=== PATIENT | male | born 1965 | race African-American/Black ===

== ENCOUNTER → 2017-03-31 | Outpatient (CLI) | payer MEDICARE, MEDICAID | LOC: CARD 09:21 | PROVIDERS: ATTEND Physician Assistant | DX: I12.9 Hypertensive chronic kidney disease with stage 1 through stage 4 chronic kidney disease, or unspecified chronic kidney disease (principal); N18.9 Chronic kidney disease, unspecified; R06.00 Dyspnea, unspecified; R01.1 Cardiac murmur, unspecified; G47.33 Obstructive sleep apnea (adult) (pediatric) | CPT/HCPCS: 93306 ==

== ENCOUNTER → 2017-07-14 | Outpatient (CLI) | payer MEDICARE, MEDICAID ==
--- NOTE | 2017-07-14 12:48 | Diagnostic Imaging Report ---
PROCEDURE: CT chest without contrast. TECHNIQUE: Multiple contiguous axial images were obtained through the chest without the use of intravenous contrast. INDICATION: Pleural effusion. FINDINGS: The prior chest exam of 06/28/2017 noted cardiomegaly and a moderate right pleural effusion with a small left pleural effusion. On this exam, the right pleural effusion is again identified. The fluid measures approximately 10 cm in maximum depth. There is also considerable atelectasis/infiltrate involving the right lower lobe and the right middle lobe and much of the right lower lobe is collapsed about the right hilum. There is no clearance evidence for an endobronchial mass but there may be constriction of the bronchus to the right lower lobe by a neoplastic mass. Bronchoscopy would be recommended for further evaluation. The right upper lobe and left lung are generally clear. There are a few small patchy areas of increased density in the left lung base near the diaphragm. There is no evidence for a left pleural effusion, however. The cardiomegaly noted previously is again evident. There are extensive coronary artery calcifications evident as well. The aorta is not abnormally dilated. There is no obvious mediastinal or hilar adenopathy. The thyroid gland, where visualized, is unremarkable. There does appear to be increased density in both retroareolar regions. This does suggest gynecomastia. Sections through the upper abdomen fail to show any sign of an acute abnormality. There do appear to be multiple cysts associated with both kidneys. There is also dense calcification involving the origin of both renal arteries. If there is clinical concern regarding renal artery stenosis, then a CTA of the aorta would be recommended for further evaluation. The bone windows show generally increased density throughout all the osseous structures. This appearance is nonspecific but could be related to a marrow replacement process such as metastatic disease or an underlying systemic abnormality. A bone marrow procedure should be considered for further evaluation. Incidental note is made of a vascular stent extending through the right subclavian vein and into the proximal superior vena cava. IMPRESSION: 1. There is a moderate to large right pleural effusion with collapse of much of the right lower lobe about the right hilum. While there is no evidence for an endobronchial mass, there may be a neoplastic mass constricting the bronchus to the right lower lobe. Bronchoscopy would be recommended for further study. 2. There is cardiomegaly and extensive coronary artery disease. 3. There is dense calcification of the origin of both renal arteries. The possibility of renal artery stenosis should certainly be considered. Recommendations as above. 4. There is diffusely increased density throughout the visualized osseous structures. This is of uncertain etiology but may be related to a marrow placement process. Recommendations as above. Dictated by: Dictated on workstation # [id number]
== END ==
LOC: RAD 09:57
PROVIDERS: ATTEND Nurse Practitioner Family
DX: J90 Pleural effusion, not elsewhere classified (principal); I51.7 Cardiomegaly; I25.10 Atherosclerotic heart disease of native coronary artery without angina pectoris; I70.1 Atherosclerosis of renal artery; J44.9 Chronic obstructive pulmonary disease, unspecified; N18.9 Chronic kidney disease, unspecified
CPT/HCPCS: 71250

== ENCOUNTER → 2017-12-01 | Outpatient (CLI) | payer MEDICARE, MEDICAID ==
[~2017-12-01] VITALS: Ht 175.3 cm; Wt 83.0 kg
[~2017-12-01] MED LIST: CATHETER FLUSH 10 ML SYR IV PRN
== END ==
LOC: CARD 10:22
PROVIDERS: ATTEND Internal Medicine Cardiovascular Disease
DX: R06.00 Dyspnea, unspecified (principal); I10 Essential (primary) hypertension; I47.1 Supraventricular tachycardia; F17.201 Nicotine dependence, unspecified, in remission

== ENCOUNTER 2018-01-03 16:35 | Emergency (ER) | payer MEDICARE, MEDICAID ==
[~2018-01-03] VITALS: Ht 175.3 cm; Wt 83.9 kg
--- NOTE | 2018-01-03 17:37 | ED Respiratory ---
General Chief Complaint: Respiratory Problems Stated Complaint: R LUNG FULL OF FLUID/SOB Nursing Triage Note: EMS picked patient up wednesday night and went to [facility]. Found that right lung is full of fluid. Was evaluated by Dr. Rees today and was advised to come to the ER and see Dr. Negrete to have fluid drained from his right lung. Source: patient, family Exam Limitations: no limitations History of Present Illness Date Seen by Provider: Jan 03, 2018 Time Seen by Provider: 17:30 Initial Comments Patient is a 52-year-old male who presents to the emergency room with a complaint of his right long being full of fluid. He was taken to [facility] emergency room on Wednesday night by EMS and was told to follow-up with his doctor today. He was seen and evaluated by Dr. Rees today and was advised to come to the emergency room here to see Dr. Mejia her popcorn vendor to have the fluid drained from his right lung. He is a dialysis patient and received dialysis Wednesday and Wednesday. He is not in distress and is on normal home oxygen. Reports that he drove himself to the hospital. Timing/Duration: other (3 days) Prior Episodes/Possible Cause: no prior episodes Allergies and Home Medications Allergies Coded Allergies: No Known Allergies (Unverified Allergy, Unknown, 12/01/17) Home Medications No Active Prescriptions or Reported Meds Patient Home Medication List Home Medication List Reviewed: Yes Review of Systems Review of Systems Constitutional: no symptoms reported, see HPI Respiratory: see HPI, other (" lung full of fluid") All Other Systems Reviewed Negative Unless Noted: Yes Past Badxnwe-Inmeft-Mvoupm Hx Past Med/Social Hx: Reviewed Nursing Past Med/Soc Hx Patient Social History Alcohol Use: Occasionally Uses Recreational Drug Use: No Smoking Status: Former Smoker Recent Foreign Travel: No Contact w/Someone Who Travel: No Recent Infectious Disease Expo: No Recent Hopitalizations: No Seasonal Allergies Seasonal Allergies: No Past Medical History Surgeries: Yes (thyroid, kidney, L hand, part of stomach removed) Abdominal, Orthopedic Respiratory: No Cardiac: No Neurological: No Genitourinary: Yes Renal Failure Gastrointestinal: No Musculoskeletal: No Endocrine: Yes Diabetes, Non-Insulin dep Are Your Blood Sugars Over 250: No HEENT: No Cancer: No Psychosocial: No Family Medical History Reviewed Nursing Family Hx Physical Exam Vital Signs - First Documented 01/03/18 01/03/18 17:02 17:40 Temp 99.3 Pulse 81 Resp 24 B/P (MAP) 178/83 (114) Pulse Ox 97 O2 Delivery Room Air O2 Flow Rate 2.00 Capillary Refill : Greater Than 3 Seconds Height: 5'9.00" Weight: 185lbs. 0.0oz. 83.651074tr; 27.0 BMI Method:Stated General Appearance: WD/WN, no apparent distress HEENT: PERRL/EOMI, normal ENT inspection, TMs normal, pharynx normal Neck: non-tender, full range of motion, supple, normal inspection, carotid bruit Respiratory: no respiratory distress, no accessory muscle use, decreased breath sounds Cardiovascular: normal peripheral pulses, regular rate, rhythm, no edema, no gallop, no JVD, no murmur Gastrointestinal: normal bowel sounds, non tender, soft, no organomegaly, no pulsatile mass Extremities: normal capillary refill Neurologic/Psychiatric: alert, normal mood/affect, oriented x 3 Skin: normal color, warm/dry Progress/Results/Core Measures Suspected Sepsis Recent Fever Within 48 Hours: No Infection Criteria Present: None New/Unexplained Altered Menta: No Sepsis Screen: No Definite Risk SIRS Temperature:99.3 Pulse: 81 Respiratory Rate: 24 Laboratory Tests 01/03/18 17:43: White Blood Count 4.7 Blood Pressure 178 /83 Mean: 114 Laboratory Tests 01/03/18 17:43: Creatinine 8.20H, Platelet Count 168, Total Bilirubin 0.6 Results/Orders Lab Results Laboratory Tests Test 01/03/18 17:43 Range/Units White Blood Count 4.7 4.3-11.0 10^3/uL Red Blood Count 3.64 L 4.35-5.85 10^6/uL Hemoglobin 11.2 L 13.3-17.7 G/DL Hematocrit 36 L 40-54 % Mean Corpuscular Volume 99 80-99 FL Mean Corpuscular Hemoglobin 31 25-34 PG Mean Corpuscular Hemoglobin Concent 31 L 32-36 G/DL Red Cell Distribution Width 20.3 H 10.0-14.5 % Platelet Count 168 130-400 10^3/uL Mean Platelet Volume 11.2 H 7.4-10.4 FL Neutrophils (%) (Auto) 77 H 42-75 % Lymphocytes (%) (Auto) 13 12-44 % Monocytes (%) (Auto) 7 0-12 % Eosinophils (%) (Auto) 2 0-10 % Basophils (%) (Auto) 1 0-10 % Neutrophils # (Auto) 3.6 1.8-7.8 X 10^3 Lymphocytes # (Auto) 0.6 L 1.0-4.0 X 10^3 Monocytes # (Auto) 0.3 0.0-1.0 X 10^3 Eosinophils # (Auto) 0.1 0.0-0.3 10^3/uL Basophils # (Auto) 0.0 0.0-0.1 10^3/uL Sodium Level 144 135-145 MMOL/L Potassium Level 4.3 3.6-5.0 MMOL/L Chloride Level 101 98-107 MMOL/L Carbon Dioxide Level 27 21-32 MMOL/L Anion Gap 16 H 5-14 MMOL/L Blood Urea Nitrogen 40 H 7-18 MG/DL Creatinine 8.20 H 0.60-1.30 MG/DL Estimat Glomerular Filtration Rate 8 BUN/Creatinine Ratio 5 Glucose Level 108 H 70-105 MG/DL Calcium Level 8.7 8.5-10.1 MG/DL Corrected Calcium 8.8 8.5-10.1 MG/DL Total Bilirubin 0.6 0.1-1.0 MG/DL Aspartate Amino Transf (AST/SGOT) 12 5-34 U/L Alanine Aminotransferase (ALT/SGPT) 10 0-55 U/L Alkaline Phosphatase 175 H 40-136 U/L B-Type Natriuretic Peptide 8869.9 H <100.0 PG/ML Total Protein 7.2 6.4-8.2 GM/DL Albumin 3.9 3.2-4.5 GM/DL My Orders Orders - NYLA SCHRADER Cbc With Automated Diff (01/03/18 17:31) Comprehensive Metabolic Panel (01/03/18 17:31) BNP (01/03/18 17:31) Chest 1 View, Ap/Pa Only (01/03/18 17:31) O2 (01/03/18 17:31) Saline Lock/Iv-Start (01/03/18 17:31) Vital Signs/I&O 01/03/18 01/03/18 01/03/18 17:02 17:40 20:22 Temp 99.3 98.9 Pulse 81 77 Resp 24 16 B/P (MAP) 178/83 (114) 192/104 (133) Pulse Ox 97 97 98 O2 Delivery Room Air Nasal Cannula O2 Flow Rate 2.00 Capillary Refill : Greater Than 3 Seconds Blood Pressure Mean: 114 Progress Note : Time: 19:15 Progress Note I have seen and evaluate the patient. I have informed him of his imaging studies and laboratory reports. I have discussed the case with Dr. Kelly and he feels that because this is an ongoing issue and he is not in any acute distress that he can see him on Wednesday in his office for a recheck after his dialysis appointment. I have also reviewed the case with Dr. Farrell from [place] and he agrees that this does not need treatment immediately. The patient agrees with plan of care, plans for discharge, return precautions were given. Diagnostic Imaging Diagonstic Imaging: Xray Plain Films/CT/US/NM/MRI: chest Comments NAME: ALICE KELLY MED REC#: [id number] PHYSICIAN: NYLA SCHRADER CC: NYLA SCHRADER; YAMILE GREENWOOD MD Page 1 of 1 RADIOLOGY REPORT VIA [place], [place] CC: NYLA SCHRADER; YAMILE GREENWOOD MD Page 1 of 1 RADIOLOGY REPORT NAME: ALICE KELLY MED REC#: [id number] PT STATUS: REG ER : 1965 PHYSICIAN: NYLA SCHRADER ADMIT DATE: 01/03/18/ER Signed Date of Exam: 01/03/18 CHEST 1 VIEW, AP/PA ONLY INDICATION: Shortness of breath. COMPARISON: CT chest of 07/14/2017. FINDINGS: There is moderate right pleural effusion again demonstrated. Right upper lung is clear. The left lung is clear. There is rather marked cardiomegaly. No evidence of pulmonary edema. There is a vascular stent in the region of the right subclavian vein. The stent does not appear distorted. There is Port-A-Cath on the left, tip overlying the superior vena caval shadow. IMPRESSION: 1. Similar appearance to a previous CT scan with moderate right pleural effusion and right lower lobe atelectasis. Cardiomegaly without failure. 2. Port-A-Cath now present in good position via left approach. Right subclavian venous stent appears unchanged in position. Dictated by: Dictated on workstation # [id number] Dict: 01/03/181753 Trans: 01/03/181936 Interpreted by: YAMILE GREENWOOD MD Electronically signed by: YAMILE GREENWOOD MD 01/03/181936 Reviewed: Reviewed by Me, Reviewed/Discussed (with dr kelly) Departure Impression Primary Impression: Pleural effusion Disposition: HOME, SELF-CARE Condition: Stable/Unchanged Departure-Patient Inst. Decision time for Depature: 19:35 Referrals: TONIO MEJIA JOHN E MD (PCP) Primary Care Physician Patient Instructions: Pleural Effusion (DC) Add. Discharge Instructions: Get dialysis as scheduled tomorrow morning. Call Dr. Lopez's office tomorrow morning to see about getting outpatient chest x-ray order after dialysis is complete. Call Dr. Mejia's office tomorrow morning to schedule an appointment for Wednesday01/05/18. Return back to the emergency room for any worsening symptoms or concerns as needed. All discharge instructions reviewed with patient and/or family. Voiced understanding. Scripts No Active Prescriptions or Reported Meds NYLA SCHRADER Jan 03, 2018 17:37
[2018-01-03 17:49] LABS: BASOPHILS % (AUTO) 1 % (0-10); EOSINOPHILS # (AUTO) 0.1 10^3/uL (0.0-0.3); EOSINOPHILS % (AUTO) 2 % (0-10); HEMATOCRIT 36 % (40-54); HEMOGLOBIN 11.2 G/DL (13.3-17.7); LYMPHOCYTES # (AUTO) 0.6 X 10^3 (1.0-4.0); LYMPHOCYTES % (AUTO) 13 % (12-44); MEAN CORPUSCULAR HEMOGLOBIN 31 PG (25-34); MEAN CORPUSCULAR HGB CONC 31 G/DL (32-36); MEAN CORPUSCULAR VOLUME 99 FL (80-99); MEAN PLATELET VOLUME 11.2 FL (7.4-10.4); MONOCYTES # (AUTO) 0.3 X 10^3 (0.0-1.0); MONOCYTES % (AUTO) 7 % (0-12); NEUTROPHILS # (AUTO) 3.6 X 10^3 (1.8-7.8); NEUTROPHILS % (AUTO) 77 % (42-75); PLATELET COUNT 168 10^3/uL (130-400); RED BLOOD COUNT 3.64 10^6/uL (4.35-5.85); RED CELL DISTRIBUTION WIDTH 20.3 % (10.0-14.5); WHITE BLOOD COUNT 4.7 10^3/uL (4.3-11.0)
--- NOTE | 2018-01-03 18:00 | Diagnostic Imaging Report ---
INDICATION: Shortness of breath. COMPARISON: CT chest of 07/14/2017. FINDINGS: There is moderate right pleural effusion again demonstrated. Right upper lung is clear. The left lung is clear. There is rather marked cardiomegaly. No evidence of pulmonary edema. There is a vascular stent in the region of the right subclavian vein. The stent does not appear distorted. There is Port-A-Cath on the left, tip overlying the superior vena caval shadow. IMPRESSION: 1. Similar appearance to a previous CT scan with moderate right pleural effusion and right lower lobe atelectasis. Cardiomegaly without failure. 2. Port-A-Cath now present in good position via left approach. Right subclavian venous stent appears unchanged in position. Dictated by: Dictated on workstation # [id number]
[2018-01-03 18:07] LABS: ALBUMIN 3.9 GM/DL (3.2-4.5); BILIRUBIN,TOTAL 0.6 MG/DL (0.1-1.0); CALCIUM 8.7 MG/DL (8.5-10.1); CREATININE SERUM 8.2 MG/DL (0.60-1.30); POTASSIUM 4.3 MMOL/L (3.6-5.0); TOTAL PROTEIN 7.2 GM/DL (6.4-8.2)
--- OUTSIDE RECORDS SUMMARY | 2018-01-03 20:09 | XMS REPORT | CCD ---
Author Author DELL HOLLAND Organization Unknown Address [address] [facility] [address] [place] [address] Care Team Providers Care Hand Loom Weaver Name Role Phone BROOKE ELY DO Attphys Allergies Unknown or Not Available. Active Medications Unknown or Not Available. Problems Problem Code Start Date Resolved Date Status Hematemesis 9380426 10/11/2016 Active CKD 552019931 10/11/2016 Active Procedures Procedure Code Procedure Type Date CX CHEST [address] 12/13/[address] 12/13/2016 LACTIC ACID 5189849 SNOMED CT 12/13/2016 TROPONIN-I ADV 790087090 SNOMED CT 12/13/2016 COMPREHENSIVE METABOLIC PANEL 291164202 SNOMED CT 2016 CBC W/ AUTO DIFF (RFLX MAN DIFF IF IND) 9392717 SNOMED CT 12/13/[address] 12/13/2016 ABG DRAW 53499461 SNOMED CT 12/13/2016 ^CBC W/AUTO DIFF 8246887 SNOMED CT 12/13/2016 ^CBC W/ MANUAL DIFF 70998513 SNOMED CT 12/13/2016 BAN AERO ECLIPSE TREATMENT 29443427 SNOMED CT 12/13/2016 Results COMPREHENSIVE METABOLIC PANEL - Collect Date/Time: 12/13/2016 04:00 Test Name Code Test Result Test Units Test Ref Range GLUCOSE 2345-7 64 MG/DL L=70 H=100 SODIUM 2951-2 144 MEQ/L L=135 H=148 POTASSIUM 2823-3 4.2 MEQ/L L=3.5 H=5.3 CHLORIDE 2075-0 100 MEQ/L L=96 H=110 CO2 2028-9 31 MEQ/L L=22 H=29 BUN 3094-0 26 MG/DL L=8 H=22 CREATININE 2160-0 6.7 MG/DL L=0.6 H=1.6 SGOT/AST 1920-8 19 IU/L L=10 H=40 SGPT/ALT 1742-6 16 IU/L L=8 H=54 ALK PHOS 6768-6 94 IU/L L=35 H=115 TOTAL PROTEIN 2885-2 7.3 G/DL L=5.5 H=8.5 ALBUMIN 1751-7 3.9 G/DL L=3.1 H=5.4 TOTAL BILI 1975-2 0.5 MG/DL L=0.0 H=1.5 CALCIUM 66618-7 9.4 MG/DL L=8.2 H=10.6 AGE 51 yrs GFR NonAA 9 GFR AA 11 eGFR 9 mL/min/1.7 eGFR AA* 11 mL/min/1.7 CBC W/ AUTO DIFF (RFLX MAN DIFF IF IND) - Collect Date/Time: 12/13/2016 04:00 Test Name Code Test Result Test Units Test Ref Range WBC 55481-2 4.0 TH/CMM L=4.5 H=10.8 RBC 789-8 3.51 ML/CMM L=4.70 H=6.10 HGB 718-7 11.2 G/DL L=14.0 H=18.0 HCT 4544-3 36.4 % L=42.0 H=52.0 MCV 104 FL L=81 H=99 MCH 31.9 PG L=27.0 H=33.0 MCHC 30.8 G/DL L=31.0 H=36.0 RDW SD 63 FL L=36 H=50 RDW CV 16.6 % L=0.0 H=14.8 MPV 11.0 FL L=9.3 H=12.5 PLT 777-3 216 TH/CMM L=130 H=440 NRBC# 0.00 TH/CMM L=0.00 H=0.00 NRBC% 0.0 /100WBC L=0.0 H=2.0 %NEUT 78.4 % %LYMP 11.2 % %MONO 6.0 % %EOS 3.5 % %BASO 0.7 % #NEUT 3.15 TH/CMM L=2.10 H=8.20 #LYMP 0.45 TH/CMM L=0.90 H=5.20 #MONO 0.24 TH/CMM L=0.16 H=1.00 #EOS 0.14 TH/CMM L=0.00 H=0.80 #BASO 0.03 TH/CMM L=0.00 H=0.20 MANUAL DIFF NOT IND N/A PT/PTT - Collect Date/Time: 12/13/2016 04:40 Test Name Code Test Result Test Units Test Ref Range PROTIME 5964-2 10.2 SEC L=9.9 H=11.9 INR 01498-6 0.9 PTT 3173-2 28.3 SEC L=22.2 H=37.2 BNP - Collect Date/Time: 12/13/2016 04:40 Test Name Code Test Result Test Units Test Ref Range BNP 29404-8 3139 PG/ML L=0 H=100 TROPONIN-I ADV - Collect Date/Time: 12/13/2016 04:00 Test Name Code Test Result Test [place] [address]-1 0.23 ng/mL L=0.04 H=0.40 ABG - Collect Date/Time: 12/13/2016 03:45 Test Name Code Test Result Test Units Test Ref Range PH 7.48 L=7.35 H=7.45 PCO2 49 mmHG L=35 H=45 PO2 41 mmHG L=80 H=100 BE 11.1 mmol/L L=-2.5 H=2.5 HCO3 36 mmol/L L=22 H=28 TCO2 33 mmol/L L=18 H=31 O2SAT 72 % L=80 H=100 SITE L RAD N/A FIO2 21 N/A LACTIC ACID - Collect Date/Time: 12/13/2016 03:45 Test Name Code Test Result Test Units Test Ref Range LACTIC ACID 2524-7 0.9 mmol/L L=0.5 H=1.6 Function Status Unknown or Not Available. History of Immunizations Immunization Code Date Hep B, dialysis 44 10/17/2015 Hep B, dialysis 44 05/21/2015 Hep B, dialysis 44 11/19/2015 Hep B, dialysis 44 07/18/2015 Plan of Treatment Unknown or Not Available. Social History Smoking Status Code Start Date End Date Current every day smoker [id number] Vital Signs Unknown or Not Available. Function Status Unknown or Not Available. Goals Unknown or Not Available. ASSESSMENTS Unknown or Not Available. Health Concerns Section Unknown or Not Available.
--- OUTSIDE RECORDS SUMMARY | 2018-01-03 20:10 | XMS REPORT | CCD ---
Author Author ALBERTO MOJICA Unknown Address [address] [facility] [address] [place], [place] [id number] Care Team Providers Care Hand Mold Maker Name Role Phone CAPRI CEDENO DO Attphys FREDERIC CABAN MD Prisur Vital Signs Unknown or Not Available. Allergies Allergy Code Allergy Type Reaction Status No Known Drug Allergies 0 No known drug allergies Active Procedures Procedure Code Procedure Type Date CBC W/ AUTO DIFF (RFLX MAN DIFF IF IND) 9052697 SNOMED CT 09/04/2014 COMPREHENSIVE METABOLIC PANEL 034307034 SNOMED CT 2014 UA ROUTINE C&S IF IND 059841058 SNOMED CT 09/04/2014 RAPID DRUG SCREEN 584770226 SNOMED CT 09/04/2014 ^CBC W/AUTO DIFF 1922877 SNOMED CT 09/04/2014 ^UA WITH MICRO 847128258 SNOMED CT 09/04/2014 History of Immunizations Unknown or Not Available. Problems Unknown or Not Available. Results COMPREHENSIVE METABOLIC PANEL - Collect Date/Time: 09/04/2014 19:38 Test Name Code Test Result Test Units Test Ref Range GLUCOSE 2345-7 76 MG/DL L=70 H=100 SODIUM 2951-2 144 MEQ/L L=135 H=148 POTASSIUM 2823-3 6.3 MEQ/L L=3.5 H=5.3 CHLORIDE 2075-0 103 MEQ/L L=96 H=110 CO2 2028-9 20 MEQ/L L=22 H=29 BUN 3094-0 91 MG/DL L=8 H=22 CREATININE 2160-0 15.8 MG/DL L=0.6 H=1.6 SGOT/AST 1920-8 12 IU/L L=10 H=40 SGPT/ALT 1742-6 <6 IU/L L=8 H=54 ALK PHOS 6768-6 99 IU/L L=35 H=115 TOTAL PROTEIN 2885-2 6.9 G/DL L=5.5 H=8.5 ALBUMIN 1751-7 3.8 G/DL L=3.1 H=5.4 TOTAL BILI 1975-2 0.6 MG/DL L=0.0 H=1.5 CALCIUM 60447-6 8.3 MG/DL L=8.2 H=10.6 AGE 48 yrs GFR NonAA 3 GFR AA 4 eGFR 3 mL/min/1.7 eGFR AA* 4 mL/min/1.7 RAPID DRUG SCREEN - Collect Date/Time: 09/04/2014 19:41 Test Name Code Test Result Test Units Test Ref Range Cannabinoids (THC) NEGATIVE N/A NEG: < 50 ng/ ml Phencyclidine (PCP) NEGATIVE N/A NEG: < 25 ng/ ml Cocaine NON-NEGATIVE N/A NEG: < 300 ng/ml Methamphetamine NEGATIVE N/A NEG: < 1000 ng/ml Opiates NEGATIVE N/A NEG: < 300 ng/ml Amphetamine NEGATIVE N/A NEG: < 1000 ng/ml Benzodiazepines NEGATIVE N/A NEG: < 300 ng/ml Tricyclic Antidepres NEGATIVE N/A NEG: < 300 ng/ ml Methadone NEGATIVE N/A NEG: < 300 ng/ml Barbiturates NEGATIVE N/A NEG: < 200 ng/ml Oxycodone NEGATIVE N/A NEG: < 100 ng/ml Propoxyphene (PPX) NEGATIVE N/A NEG: < 300 ng/ ml CBC W/ AUTO DIFF (RFLX MAN DIFF IF IND) - Collect Date/Time: 09/04/2014 19:38 Test Name Code Test Result Test Units Test Ref Range WBC 15918-6 3.9 TH/CMM L=4.5 H=10.8 RBC 789-8 3.27 ML/CMM L=4.70 H=6.10 HGB 718-7 9.9 G/DL L=14.0 H=18.0 HCT 4544-3 31.0 % L=42.0 H=52.0 MCV 95 FL L=81 H=99 MCH 30.3 PG L=27.0 H=33.0 MCHC 31.9 G/DL L=31.0 H=36.0 RDW SD 57 FL L=36 H=50 RDW CV 16.1 % L=0.0 H=14.8 MPV 10.8 FL L=9.3 H=12.5 PLT 777-3 192 TH/CMM L=130 H=440 NRBC# 0.00 TH/CMM L=0.00 H=0.00 NRBC% 0.0 /100WBC L=0.0 H=2.0 %NEUT 69.7 % %LYMP 19.1 % %MONO 3.6 % %EOS 7.1 % %BASO 0.5 % #NEUT 2.73 TH/CMM L=2.10 H=8.20 #LYMP 0.75 TH/CMM L=0.90 H=5.20 #MONO 0.14 TH/CMM L=0.16 H=1.00 #EOS 0.28 TH/CMM L=0.00 H=0.80 #BASO 0.02 TH/CMM L=0.00 H=0.20 MANUAL DIFF NOT IND N/A UA ROUTINE C&S IF IND - Collect Date/Time: 09/04/2014 19:41 Test Name Code Test Result Test Units Test Ref Range COLOR YELLOW N/A NL: YELLOW APPEARANCE CLEAR N/A NL: CLEAR SPEC GRAV 1.010 N/A NL: 1.002 - 1.022 pH 8.5 N/A NL: 5 - 9 PROTEIN 100 N/A NL: NEGATIVE mg/dl GLUCOSE 100 N/A NL: NEGATIVE mg/dl KETONE NEGATIVE N/A NL: NEGATIVE mg/dl BILIRUBIN NEGATIVE N/A NL: NEGATIVE BLOOD TRACE-LYSED N/A NL: NEGATIVE NITRITE NEGATIVE N/A NL: NEGATIVE LEUK SCREEN NEGATIVE N/A NL: NEGATIVE MICRO INDICATED? SEE BELOW N/A WBC/HPF RARE N/A NL: NEGATIVE RBC/HPF 0-5 N/A NL: NEGATIVE CASTS/LPF NEGATIVE N/A NL: NEGATIVE CRYSTALS NEGATIVE N/A NL: NEGATIVE MUCOUS THRDS NEGATIVE N/A NL: NEGATIVE BACTERIA FEW N/A NL: NEGATIVE EPITH CELLS FEW SQUAMOUS N/A NL: NEGATIVE TRICHOMONAS NEGATIVE N/A NL: NEGATIVE YEAST NEGATIVE N/A NL: NEGATIVE CULT SET UP? NO N/A Active Medications Medication Code Dose Units Frequency Route Modification Start Date/Time CALCIUM GLUCONATE IVPB (PREDEFINED) 498048 X1 IV 09/04/2014 20:36 ~~ CALCIUM GLUCONATE 10%(0.465mEq/ML) 50ML 621194 10 ML ~~ NACL 0.9%: 50ML BAG 223476 50 ML Medications Administered During Visit Unknown or Not Available. Encounters Encounter Diagnosis Diagnosis Code Start Date HYPERPOTASSEMIA 2767 09/04/2014 Social History Smoking Status Code Start Date End Date Current every day smoker [id number] Patient Decision Aids Unknown or Not Available. Discharge Instructions You were admitted to [facility] on 09/04/2014 with a principal diagnosis of HYPERPOTASSEMIA. You were discharged from [facility] on 09/04/2014. Should you have any questions prior to discharge, please contact a member of your healthcare team. If you have left the hospital and have any questions, please contact your primary care physician. Chief Complaint and Reason For Visit Chief Complaint Date of Onset SWELLING AND SHOULDER PAIN Function Status Unknown or Not Available. Plan of Care Unknown or Not Available. Referral/Transition of Care Unknown or Not Available.
--- OUTSIDE RECORDS SUMMARY | 2018-01-03 20:10 | XMS REPORT | CCD ---
Author Author DOC GARCIA Unknown Address [address] [facility] [address] [place] [address] Care Team Providers Care Sizer Machine Name Role Phone CEDENO, CAPRI DO Attphys CEDENO, CAPRI DO Prisurg Allergies Allergy Code Allergy Type Reaction Status No Known Drug Allergies 0 Drug allergy Active Active Medications Unknown or Not Available. Problems Unknown or Not Available. Procedures Procedure Code Procedure Type Date HIP COMP MIN [address] 03/22/2016 Results Unknown or Not Available. Encounters Encounter Diagnosis Diagnosis Code Start Date Contusion of left hip, initial encounter [id number] 03/22/2016 Function Status Unknown or Not Available. History of Immunizations Immunization Code Date Hep B, dialysis 44 10/17/2015 Hep B, dialysis 44 05/21/2015 Hep B, dialysis 44 11/19/2015 Hep B, dialysis 44 07/18/2015 Plan of Treatment Unknown or Not Available. Social History Smoking Status Code Start Date End Date Current every day smoker 099266711 Vital Signs Unknown or Not Available. Function Status Unknown or Not Available. Goals Unknown or Not Available. ASSESSMENTS Unknown or Not Available. Health Concerns Section Unknown or Not Available.
--- OUTSIDE RECORDS SUMMARY | 2018-01-03 20:10 | XMS REPORT | CCD ---
Author Author DELL HOLLAND Organization Unknown Address [address] [facility] [address] [place] [address] Care Team Providers Care Television Cable Installer Name Role Phone ZACHARY GARCIA MD Attphys Allergies Allergy Code Allergy Type Reaction Status No Known Drug Allergies 0 Drug allergy Active Active Medications Unknown or Not Available. Problems Unknown or Not Available. Procedures Procedure Code Procedure Type Date Cataract removal insertion of lens 02076 CPT 12/18/2015 Results Unknown or Not Available. Function Status Unknown or Not Available. History of Immunizations Immunization Code Date Hep B, dialysis 44 10/17/2015 Hep B, dialysis 44 05/21/2015 Hep B, dialysis 44 11/19/2015 Hep B, dialysis 44 07/18/2015 Plan of Treatment Unknown or Not Available. Social History Smoking Status Code Start Date End Date Current every day smoker [id number] Vital Signs Unknown or Not Available. Function Status Unknown or Not Available. Goals Unknown or Not Available. ASSESSMENTS Unknown or Not Available. Health Concerns Section Unknown or Not Available.
--- OUTSIDE RECORDS SUMMARY | 2018-01-03 20:10 | XMS REPORT | CCD ---
Author Author DOC GARCIA Unknown Address [address] [place] [address] Care Team Providers Care Drupal Architect Name Role Phone LIBRADO NELSON, RINKU Archibald Attphyherbert LIBRADO NELSON, RINKU Teague Allergies Allergy Code Allergy Type Reaction Status No Known Drug Allergies 0 Drug allergy Active Active Medications Unknown or Not Available. Problems Unknown or Not Available. Procedures Procedure Code Procedure Type Date CX CHEST [id number] 02/20/[address] 02/20/2016 TROPONIN-I ADV 096828455 SNOMED CT 02/20/2016 CBC W/ AUTO DIFF (RFLX MAN DIFF IF IND) 0438817 SNOMED CT 02/20/2016 COMPREHENSIVE METABOLIC PANEL 112297924 SNOMED CT 2015 ^CBC W/ MANUAL DIFF 26288992 SNOMED CT 02/20/2016 Results COMPREHENSIVE METABOLIC PANEL - Collect Date/Time: 02/20/2016 01:55 Test Name Code Test Result Test Units Test Ref Range GLUCOSE 2345-7 85 MG/DL L=70 H=100 SODIUM 2951-2 144 MEQ/L L=135 H=148 POTASSIUM 2823-3 7.2 MEQ/L L=3.5 H=5.3 CHLORIDE 2075-0 99 MEQ/L L=96 H=110 CO2 2028-9 30 MEQ/L L=22 H=29 BUN 3094-0 54 MG/DL L=8 H=22 CREATININE 2160-0 12.2 MG/DL L=0.6 H=1.6 SGOT/AST 1920-8 34 IU/L L=10 H=40 SGPT/ALT 1742-6 22 IU/L L=8 H=54 ALK PHOS 6768-6 93 IU/L L=35 H=115 TOTAL PROTEIN 2885-2 7.9 G/DL L=5.5 H=8.5 ALBUMIN 1751-7 4.1 G/DL L=3.1 H=5.4 TOTAL BILI 1975-2 0.6 MG/DL L=0.0 H=1.5 CALCIUM 41517-8 9.3 MG/DL L=8.2 H=10.6 AGE 50 yrs GFR NonAA 4 GFR AA 5 eGFR 4 mL/min/1.7 eGFR AA* 5 mL/min/1.7 CBC W/ AUTO DIFF (RFLX MAN DIFF IF IND) - Collect Date/Time: 02/20/2016 01:55 Test Name Code Test Result Test Units Test Ref Range WBC 21064-5 6.3 TH/CMM L=4.5 H=10.8 RBC 789-8 3.04 ML/CMM L=4.70 H=6.10 HGB 718-7 10.1 G/DL L=14.0 H=18.0 HCT 4544-3 32.9 % L=42.0 H=52.0 MCV 108 FL L=81 H=99 MCH 33.2 PG L=27.0 H=33.0 MCHC 30.7 G/DL L=31.0 H=36.0 RDW SD 68 FL L=36 H=50 RDW CV 17.2 % L=0.0 H=14.8 MPV 10.9 FL L=9.3 H=12.5 PLT 777-3 187 TH/CMM L=130 H=440 NRBC# 0.00 TH/CMM L=0.00 H=0.00 NRBC% 0.0 /100WBC L=0.0 H=2.0 %NEUT 86.6 % %LYMP 7.0 % %MONO 3.5 % %EOS 1.6 % %BASO 0.5 % #NEUT 5.45 TH/CMM L=2.10 H=8.20 #LYMP 0.44 TH/CMM L=0.90 H=5.20 #MONO 0.22 TH/CMM L=0.16 H=1.00 #EOS 0.10 TH/CMM L=0.00 H=0.80 #BASO 0.03 TH/CMM L=0.00 H=0.20 SEGS 88 % BANDS 4 % LYMPHS 6 % MONOS 1 % BASO 1 % MANUAL DIFF SEE BELOW N/A MACRO 2+ N/A ANISO 2+ N/A POIK 1+ N/A POLYCHROMASIA SL N/A BNP - Collect Date/Time: 02/20/2016 01:55 Test Name Code Test Result Test Units Test Ref Range BNP 76265-6 2675 PG/ML L=0 H=100 TROPONIN-I ADV - Collect Date/Time: 02/20/2016 01:55 Test Name Code Test Result Test Units [place] [address]-7 0.21 ng/mL L=0.04 H=0.40 Function Status Unknown or Not Available. History of Immunizations Immunization Code Date Hep B, dialysis 44 10/17/2015 Hep B, dialysis 44 05/21/2015 Hep B, dialysis 44 11/19/2015 Hep B, dialysis 44 07/18/2015 Plan of Treatment Unknown or Not Available. Social History Smoking Status Code Start Date End Date Current every day smoker [id number] Vital Signs Unknown or Not Available. Function Status Unknown or Not Available. Goals Unknown or Not Available. ASSESSMENTS Unknown or Not Available. Health Concerns Section Unknown or Not Available.
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
--- OUTSIDE RECORDS SUMMARY | 2018-01-03 20:10 | XMS REPORT | CCD ---
Author Author DOC GARCIA Unknown Address [address] [place] [address] Care Team Providers Care Cable Mock Up Assembler Name Role Phone [facility] DO Attphys HMarshall, LYRIC Joe NASST JLADONNA Olivares NASST BMarshall, STACY NASST Allergies Unknown or Not Available. Active Medications Medication Code Dose Units Frequency Route Modification Start Date/Time PANTOPRAZOLE [PROTONIX] TABLET : 40 MG 398992 40 MG BID PO 10/12/2016 11:24 SUCRALFATE SUSP [CARAFATE] 1GM/10ML UD 357156 1 GM ACHS PO 10/12/2016 11:23 FOLIC ACID INJ:5 MG/ML (BAXTER PER ML) 295519 1 MG X1 IVP 10/12/2016 11:19 LORAZEPAM (ATIVAN) INJ : 2 MG/ML TUBEX 421098 0.5 MG PRN IVP 10/11/2016 21:17 PROTONIX IV DRIP(PREDEFINED) CONT IV IVPB 10/11/2016 10:14 ~~ DO NOT REFRIGERATE!!!!! 61296255813 1 EA ~~ NACL 0.9% 250ML IV BAG (7983-02) 0036734 250 ML ~~ PANTOPRAZOLE [PROTONIX] INJ VIAL: 40 MG 508872 80 MG ACETAMINOPHEN ES [TYLENOL] TAB : 500 MG 213342 500 MG PRN PO 10/11/2016 10:11 MORPHINE INJ: 2MG/ML 1 ML SYRINGE 2400473 2 MG PRN IVP 10/11/2016 07:34 ONDANSETRON [ZOFRAN] INJ 4 MG/2 ML VIAL 0118276 4 MG PRN Q 4 HRS SIVP 10/11/2016 07:34 Problems Problem Code Start Date Resolved Date Status Hematemesis 4050269 10/11/2016 Active CKD 985523043 10/11/2016 Active Procedures Procedure Code Procedure Type Date Excision of Stomach, Via Natural or Artificial Opening Endoscopic, Diagnos [id number] ICD-10 PCS 10/11/2016 CX CHEST [address] 10/11/[address] 10/12/2016 IRON PANEL 417269217 SNOMED CT 10/12/[address] 10/12/[address] 10/12/2016 COMPREHENSIVE METABOLIC PANEL 803976125 SNOMED CT 2016 PATHOLOGY ORDER 136770273 SNOMED CT 10/11/2016 .BB COMPATIBILITY 140774565 SNOMED CT 10/11/[address] 10/11/[address] 10/11/[address] 10/11/2016 CBC W/ AUTO DIFF (RFLX MAN DIFF IF IND) 7391988 SNOMED CT 10/12/2016 .BB ABO RH RETYPE 32955050 SNOMED CT 10/11/2016 TYPE AND CROSS 07188198 SNOMED CT 10/11/2016 CBC W/ AUTO DIFF (RFLX MAN DIFF IF IND) 5023099 SNOMED CT 10/11/2016 COMPREHENSIVE METABOLIC PANEL 010921326 SNOMED CT 2016 INCENTIVE SPIROMETRY X [address] 10/11/2016 ^CBC W/AUTO DIFF 1693034 SNOMED CT 10/12/2016 .BB COMPAT EXM CHARGE ONLY 636873231 SNOMED CT 2016 .BB COMPAT EXM CHARGE ONLY 953928083 SNOMED CT 2016 .BB PRC 135678329 SNOMED CT 10/11/2016 ^RHO D 529926840 SNOMED CT 10/11/2016 ^ABO TYPE 072394810 SNOMED CT 10/11/2016 ^DEENA SCREEN 385170447 SNOMED CT 10/11/2016 ^CBC W/AUTO DIFF 2994639 SNOMED CT 10/11/2016 Results COMPREHENSIVE METABOLIC PANEL - Collect Date/Time: 10/12/2016 06:30 Test Name Code Test Result Test Units Test Ref Range GLUCOSE 2345-7 80 MG/DL L=70 H=100 SODIUM 2951-2 142 MEQ/L L=135 H=148 POTASSIUM 2823-3 5.7 MEQ/L L=3.5 H=5.3 CHLORIDE 2075-0 98 MEQ/L L=96 H=110 CO2 2028-9 27 MEQ/L L=22 H=29 BUN 3094-0 82 MG/DL L=8 H=22 CREATININE 2160-0 11.7 MG/DL L=0.6 H=1.6 SGOT/AST 1920-8 21 IU/L L=10 H=40 SGPT/ALT 1742-6 18 IU/L L=8 H=54 ALK PHOS 6768-6 52 IU/L L=35 H=115 TOTAL PROTEIN 2885-2 6.0 G/DL L=5.5 H=8.5 ALBUMIN 1751-7 3.4 G/DL L=3.1 H=5.4 TOTAL BILI 1975-2 0.6 MG/DL L=0.0 H=1.5 CALCIUM 69718-6 8.7 MG/DL L=8.2 H=10.6 AGE [birth year]-2 50 yrs GFR NonAA 48047-2 5 GFR [place] 12994-9 6 eGFR 90468-6 5 mL/min/1.7 eGFR AA* 92511-6 6 mL/min/1.7 COMPREHENSIVE METABOLIC PANEL - Collect Date/Time: 10/11/2016 06:00 Test Name Code Test Result Test Units Test Ref Range GLUCOSE 2345-7 94 MG/DL L=70 H=100 SODIUM 2951-2 143 MEQ/L L=135 H=148 POTASSIUM 2823-3 5.4 MEQ/L L=3.5 H=5.3 CHLORIDE 2075-0 96 MEQ/L L=96 H=110 CO2 2028-9 30 MEQ/L L=22 H=29 BUN 3094-0 59 MG/DL L=8 H=22 CREATININE 2160-0 9.6 MG/DL L=0.6 H=1.6 SGOT/AST 1920-8 19 IU/L L=10 H=40 SGPT/ALT 1742-6 13 IU/L L=8 H=54 ALK PHOS 6768-6 74 IU/L L=35 H=115 TOTAL PROTEIN 2885-2 6.5 G/DL L=5.5 H=8.5 ALBUMIN 1751-7 3.7 G/DL L=3.1 H=5.4 TOTAL BILI 1975-2 0.5 MG/DL L=0.0 H=1.5 CALCIUM 53520-3 9.7 MG/DL L=8.2 H=10.6 AGE 50 yrs GFR NonAA 6 GFR AA 7 eGFR 6 mL/min/1.7 eGFR AA* 7 mL/min/1.7 PHOSPHORUS - Collect Date/Time: 10/12/2016 06:30 Test Name Code Test Result Test Units Test Ref Range PHOSPHORUS 2777-1 5.1 MG/DL L=2.5 H=4.5 CBC W/ AUTO DIFF (RFLX MAN DIFF IF IND) - Collect Date/Time: 10/12/2016 06:30 Test Name Code Test Result Test Units Test Ref Range WBC 96973-0 5.3 TH/CMM L=4.5 H=10.8 RBC 789-8 2.63 ML/CMM L=4.70 H=6.10 HGB 718-7 8.5 G/DL L=14.0 H=18.0 HCT 4544-3 27.0 % L=42.0 H=52.0 MCV 68188-9 103 FL L=81 H=99 MCH 18849-9 32.3 PG L=27.0 H=33.0 MCHC 27495-1 31.5 G/DL L=31.0 H=36[place]0 [place] [address]-9 72 FL L=36 H=50 [place] [address]-9 19.9 % L=0.0 H=14.8 MPV 75494-1 11.4 FL L=9.3 H=12.5 PLT 777-3 193 TH/CMM L=130 H=440 NRBC# 13657-8 0.00 TH/CMM L=0.00 H=0.00 NRBC% 28865-0 0.0 /100WBC L=0.0 H=2.0 %NEUT 51758-9 76.9 % %LYMP 51123-9 13.3 % %MONO 95093-0 5.7 % %EOS 37333-2 2.7 % %BASO 04153-7 0.8 % #NEUT 27524-1 4.04 TH/CMM L=2.10 H=8.20 #LYMP 80701-8 0.70 TH/CMM L=0.90 H=5.20 #MONO 16153-2 0.30 TH/CMM L=0.16 H=1.00 #EOS 95538-1 0.14 TH/CMM L=0.00 H=0.80 #BASO 72200-4 0.04 TH/CMM L=0.00 H=0.20 MANUAL DIFF 63821-1 NOT IND N/A CBC W/ AUTO DIFF (RFLX MAN DIFF IF IND) - Collect Date/Time: 10/11/2016 06:00 Test Name Code Test Result Test Units Test Ref Range WBC 67585-4 9.8 TH/CMM L=4.5 H=10.8 RBC 789-8 2.81 ML/CMM L=4.70 H=6.10 HGB 718-7 9.3 G/DL L=14.0 H=18.0 HCT 4544-3 30.4 % L=42.0 H=52.0 MCV 108 FL L=81 H=99 MCH 33.1 PG L=27.0 H=33.0 MCHC 30.6 G/DL L=31.0 H=36.0 RDW SD 74 FL L=36 H=50 RDW CV 18.9 % L=0.0 H=14.8 MPV 11.4 FL L=9.3 H=12.5 PLT 777-3 258 TH/CMM L=130 H=440 NRBC# 0.11 TH/CMM L=0.00 H=0.00 NRBC% 1.1 /100WBC L=0.0 H=2.0 %NEUT 80.8 % %LYMP 10.5 % %MONO 7.0 % %EOS 0.5 % %BASO 0.6 % #NEUT 7.89 TH/CMM L=2.10 H=8.20 #LYMP 1.03 TH/CMM L=0.90 H=5.20 #MONO 0.68 TH/CMM L=0.16 H=1.00 #EOS 0.05 TH/CMM L=0.00 H=0.80 #BASO 0.06 TH/CMM L=0.00 H=0.20 MANUAL DIFF NOT IND N/A HEMOGLOBIN - Collect Date/Time: 10/11/2016 23:00 Test Name Code Test Result Test Units Test Ref Range HGB 718-7 8.6 G/DL L=14.0 H=18.0 HEMOGLOBIN - Collect Date/Time: 10/11/2016 17:10 Test Name Code Test Result Test Units Test Ref Range HGB 718-7 9.7 G/DL L=14.0 H=18.0 HEMOGLOBIN - Collect Date/Time: 10/11/2016 11:10 Test Name Code Test Result Test Units Test Ref Range HGB 718-7 8.1 G/DL L=14.0 H=18.0 PT/PTT - Collect Date/Time: 10/11/2016 06:00 Test Name Code Test Result Test Units Test Ref Range PROTIME 5964-2 11.2 SEC L=9.9 H=11.9 INR 84804-0 1.0 PTT 3173-2 20.6 SEC L=22.2 H=37.2 .BB ABO RH RETYPE - Collect Date/Time: 10/11/2016 07:23 Test Name Code Test Result Test Units Test Ref Range ABO/Rh Recheck O Positive N/A .BB COMPATIBILITY - Collect Date/Time: 10/11/2016 13:12 Test Name Code Test Result Test Units Test Ref Range Cross Match Result Compatible N/A Unit Blood Type O Pos N/A Unit Number [id number] RBC -1 LR N/A Status Information Ready N/A Product Identification Red Blood Cells N/A TYPE AND CROSS - Collect Date/Time: 10/11/2016 06:45 Test Name Code Test Result Test Units Test Ref Range ABO/Rh Type O Positive N/A Antibody Screen-Gel Negative N/A FERRITIN - Collect Date/Time: 10/12/2016 06:30 Test Name Code Test Result Test Units Test Ref Range FERRITIN 2276-4 898 ng/mL L=32 H=322 IRON PANEL - Collect Date/Time: 10/12/2016 06:30 Test Name Code Test Result Test Units Test Ref Range IRON TOTAL 2498-4 58 MCG/DL L=50 H=212 Transferrin 3034-6 118 MG/DL L=175 H=375 TIBC Calculation 2500-7 148 MG/DL L=250 H=450 %Saturation Calc 2500-7 39 % L=15 H=55 VITAMIN B12 & FOLATE - Collect Date/Time: 10/12/2016 06:30 Test Name Code Test Result Test Units Test Ref Range VITAMIN B12 2132-9 278 PG/ML L=213 H=816 FOLATE 2284-8 7.40 ng/mL MAGNESIUM - Collect Date/Time: 10/12/2016 06:30 Test Name Code Test Result Test Units Test Ref Range MAGNESIUM 49405-0 2.1 MG/DL L=1.7 H=2.8 Function Status Unknown or Not Available. History of Immunizations Immunization Code Date Hep B, dialysis 44 10/17/2015 Hep B, dialysis 44 05/21/2015 Hep B, dialysis 44 11/19/2015 Hep B, dialysis 44 07/18/2015 Plan of Treatment Unknown or Not Available. Social History Smoking Status Code Start Date End Date Former smoker 1811563 Vital Signs Vital Sign Value Unit Date/Time Recent/Initial? BP Systolic 157 mm[Hg] 10/11/2016 09:11 Initial VS BP Diastolic 71 mm[Hg] 10/11/2016 09:11 Initial VS Respiratory Rate 15 /min 10/11/2016 09:11 Initial VS Heart Rate 87 /min 10/11/2016 09:11 Initial VS O2 % BldC Oximetry 100 % 10/11/2016 09:11 Initial VS BMI (Body Mass Index) 28.24 kg/m2 10/11/2016 10:28 Initial VS Weight Measured 188.5 [lb_av] 10/11/2016 10:28 Initial VS Height 68.5 [in_i] 10/11/2016 10:28 Initial VS BSA (Body Surface Area) 2.03 m2 10/11/2016 10:28 Initial VS Body Temperature 97.9 [degF] 10/11/2016 11:46 Initial VS BP Systolic 162 mm[Hg] 10/12/2016 11:11 Most Recent VS BP Diastolic 80 mm[Hg] 10/12/2016 11:11 Most Recent VS Respiratory Rate 13 /min 10/12/2016 11:12 Most Recent VS Heart Rate 82 /min 10/12/2016 11:12 Most Recent VS O2 % BldC Oximetry 100 % 10/12/2016 11:12 Most Recent VS Body Temperature 98 [degF] 10/12/2016 11:13 Most Recent VS BMI (Body Mass Index) 28.18 kg/m2 10/12/2016 11:15 Most Recent VS Weight Measured 188.1 [lb_av] 10/12/2016 11:15 Most Recent VS Height 68.5 [in_i] 10/12/2016 11:15 Most Recent VS BSA (Body Surface Area) 2.03 m2 10/12/2016 11:15 Most Recent VS Function Status Unknown or Not Available. Goals Unknown or Not Available. ASSESSMENTS Unknown or Not Available. Health Concerns Section Unknown or Not Available.
--- OUTSIDE RECORDS SUMMARY | 2018-01-03 20:10 | XMS REPORT | CCD ---
Author Author DOC GARCIA Unknown Address [address] [place] [address] Care Team Providers Care Housing Quality Standard Inspector Name Role Phone LIBRADO NELSON, RINKU Archibald Attphyherbert LIBRADO NELSON, RINKU Teague Allergies Allergy Code Allergy Type Reaction Status No Known Drug Allergies 0 Drug allergy Active Active Medications Unknown or Not Available. Problems Unknown or Not Available. Procedures Procedure Code Procedure Type Date CX CHEST [address] 02/20/[address] 02/20/2016 TROPONIN-I ADV 574950490 SNOMED CT 02/20/2016 CBC W/ AUTO DIFF (RFLX MAN DIFF IF IND) 6042977 SNOMED CT 02/20/2016 COMPREHENSIVE METABOLIC PANEL 411020449 SNOMED CT 2015 ^CBC W/ MANUAL DIFF 63898263 SNOMED CT 02/20/2016 Results COMPREHENSIVE METABOLIC PANEL [...] BILI 1975-2 0.6 MG/DL L=0.0 H=1.5 CALCIUM 46925-7 9.3 MG/DL L=8.2 H=10.6 AGE 50 yrs GFR NonAA 4 GFR AA 5 eGFR 4 mL/min/1.7 eGFR AA* 5 mL/min/1.7 CBC W/ AUTO DIFF (RFLX MAN DIFF IF IND) - Collect Date/Time: 02/20/2016 01:55 Test Name Code Test Result Test Units Test Ref Range WBC 91601-6 6.3 TH/CMM L=4.5 H=10.8 RBC 789-8 3.04 [...] Result Test Units Test Ref Range BNP 95592-4 2675 PG/ML L=0 H=100 TROPONIN-I ADV - Collect Date/Time: 02/20/2016 01:55 Test Name Code Test Result Test Units [place] [address]-8 0.21 ng/mL L=0.04 H=0.40 Function Status Unknown or Not Available. History of Immunizations Immunization Code Date Hep B, dialysis 44 10/17/2015 Hep B, dialysis 44 05/21/2015 Hep B, dialysis 44 11/19/2015 Hep B, dialysis 44 07/18/2015 Plan of Treatment Unknown or Not Available. Social History Smoking Status Code Start Date End Date Current every day smoker 671705950 Vital Signs Unknown or Not Available. Function Status Unknown or Not Available. Goals Unknown or Not Available. ASSESSMENTS Unknown or Not Available. Health Concerns Section Unknown or Not Available.
--- OUTSIDE RECORDS SUMMARY | 2018-01-03 20:10 | XMS REPORT | CCD ---
Author Author DOC GARCIA Organization Unknown Address [address] [facility] [address] [place] [address] Care Team Providers Care Supervisor Warping Department Name Role Phone ALLENCULLINS PHYS, SHANTA ER Attphys ALLENCULLINS PHYS, SHANTA ER Prisurg Allergies Unknown or Not Available. Active Medications Unknown or Not Available. Problems Problem Code Start Date Resolved Date Status Hematemesis 9568890 10/11/2016 Active CKD 020748696 10/11/2016 Active Procedures Unknown or Not Available. Results Unknown or Not Available. Encounters Encounter Diagnosis Diagnosis Code Start Date Dermatitis, unspecified L309 08/05/2016 Function Status Unknown or Not Available. History of Immunizations Immunization Code Date Hep B, dialysis 44 10/17/2015 Hep B, dialysis 44 05/21/2015 Hep B, dialysis 44 11/19/2015 Hep B, dialysis 44 07/18/2015 Social History Smoking Status Code Start Date End Date Current every day smoker 985154167 Vital Signs Unknown or Not Available. Function Status Unknown or Not Available. Goals Unknown or Not Available. ASSESSMENTS Unknown or Not Available. Health Concerns Section Unknown or Not Available.
--- OUTSIDE RECORDS SUMMARY | 2018-01-03 20:10 | XMS REPORT | CCD ---
Author Author DOC GARCIA Unknown Address [address] [facility] [address] [place] [address] Care Team Providers Care Cone Treater Name Role Phone SHANTA ACOSTA MD Attphys SHANTA ACOSTA MD Prisurg Allergies Allergy Code Allergy Type Reaction Status No Known Drug Allergies 0 Drug allergy Active Active Medications Unknown or Not Available. Problems Problem Code Start Date Resolved Date Status Hematemesis 9360272 10/11/2016 Active CKD 250126119 10/11/2016 Active Procedures Unknown or Not Available. Results Unknown or Not Available. Function Status Unknown or Not Available. History of Immunizations Immunization Code Date Hep B, dialysis 44 10/17/2015 Hep B, dialysis 44 05/21/2015 Hep B, dialysis 44 11/19/2015 Hep B, dialysis 44 07/18/2015 Plan of Treatment Unknown or Not Available. Social History Smoking Status Code Start Date End Date Current every day smoker 521439077 Vital Signs Unknown or Not Available. Function Status Unknown or Not Available. Goals Unknown or Not Available. ASSESSMENTS Unknown or Not Available. Health Concerns Section Unknown or Not Available.
--- OUTSIDE RECORDS SUMMARY | 2018-01-03 20:11 | XMS REPORT | Referral Summary ---
Author Author [facility] Organization [facility] Address Unknown Phone Unavailable Care Team Providers Care Isotope Technologist Name Role Phone Martin Lopez PCP Encounter VC Date(s): 03/25/16 - 03/25/16 [facility] [address] [place] [address] [phone] Discharge Diagnosis: Right arm pain Discharge Diagnosis: ESRD on dialysis Discharge Disposition: 01-Home or Self Care Attending Physician: Raymond Dickinson DO Admitting Physician: Raymond Dickinson DO Vital Signs Most recent to 1 oldest [Reference Range]: Temperature Oral 36.2 degC [35.8-37.3 degC] (03/25/16 12:35 PM) Peripheral Pulse 87 bpm Rate [60-100 bpm] (03/25/16 1:30 PM) Respiratory Rate 20 br/min [14-20 br/min] (03/25/16 1:30 PM) Blood Pressure 184/88 mmHg [90-140/60-90 mmHg] *HI* (03/25/16 1:30 PM) SpO2 97 % (03/25/16 1:30 PM) Problem List Condition Effective Dates Status Health Status Informant Dialysis Active patient patient(Confirmed) Hypertension(Confirm Active patient ed) Panic Active patient attacks(Confirmed) Allergies, Adverse Reactions, Alerts No Known Medication Allergies Medications lisinopril Oral, Daily, 0 Refill(s) Start Date: 03/25/16 Status: Ordered oxyCODONE Oral, 0 Refill(s) Start Date: 03/25/16 Status: Ordered Xanax Oral, TID, 0 Refill(s) Start Date: 03/25/16 Status: Ordered Results No data available for this section Immunizations No data available for this section Procedures No data available for this section Social History Social History Type Response Smoking Status Former smoker; Type: Cigarettes Assessment and Plan No data available for this section
--- OUTSIDE RECORDS SUMMARY | 2018-01-03 20:12 | XMS REPORT ---
Author Author Martin Lopez [facility] Address [address] [place], [place] [id number] Care Team Providers Care Biology Professor Name Role Phone Martin Lopez PCP Martin Lopez PreferredProvider Allergies and Adverse Reactions Name Reaction Notes NO KNOWN DRUG ALLERGIES Plan of Treatment Planned Activity Comments Planned Date Planned Time Plan/Goal needs port placement Sleep monitoring 03/05/2015 12:00 AM URINALYSIS ROUTINE C&S IF IND 01/21/2016 12:00 AM Hip Complete Min 2Views - Main 07/20/2016 12:[address] CHEST W/CONTRAST 06/28/2017 12:00 AM right hip pain Medications Active Name Start Date Estimated Completion Date SIG Comments CPAP 07/06/2016 11 cm H20 ProAir HFA 90 mcg/actuation inhalation HFA aerosol inhaler 07/06/2016 inhale 2 puffs (180 mcg) by inhalation route at least 15 minutes before exertion pantoprazole 40 mg oral tablet,delayed release (DR/EC) 02/22/2017 take 1 tablet by oral route QD three times a week after dialysis Dialysis on et Wed Xanax 2 mg oral tablet 11/22/2017 03/22/2018 take 1 tablet by oral route every 4 hours as needed for 30 days Sensipar 30 mg oral tablet take 1 tablet (30 mg) by oral route once daily with food Calcium 600 600 mg calcium (1,500 mg) oral tablet take 1 tablet by oral route daily ipratropium-albuterol 0.5 mg-3 mg(2.5 mg base)/3 mL inhalation solution for nebulization 12/08/2017 inhale 3 milliliters by nebulization route 4 times per day Nebulizer 12/08/2017 as directed Coreg 25 mg oral tablet 12/17/2017 05/16/2018 take 1 tablet (25 mg) by oral route 2 times per day with food for 30 days lisinopril 40 mg oral tablet 12/17/2017 TAKE 1 TABLET BY MOUTH ONCE DAILY OxyContin 60 mg oral tablet,oral only,ext.rel.12 hr 12/24/2017 01/23/2018 take 1 tablet (60 mg) by oral route every 12 hours for 30 days Symbicort 160-4.5 mcg/actuation inhalation HFA aerosol inhaler 12/27/2017 inhale 2 puffs by inhalation route 2 times per day in the morning and evening oxycodone 30 mg oral tablet 12/27/2017 take 1 tablet by oral route every 4 hours as needed promethazine-codeine 6.25-10 mg/5 mL oral syrup 12/27/2017 take 5 milliliters by oral route every 4 hours as needed Name Start Date Expiration Date SIG Comments amlodipine 5 mg oral tablet 11/06/2014 06/04/2015 take 1 tablet (5 mg) by oral route once daily for 30 days carvedilol 25 mg oral tablet 11/06/2014 11/01/2015 take 1 tablet (25 mg) by oral route 2 times per for 30 days Zithromax Z-Humberto 250 mg oral tablet 02/06/2016 02/16/2016 take 2 tablets (500 mg) by oral route once daily for 1 day then 1 tablet (250 mg) by oral route once daily for 4 days prednisone 20 mg oral tablet 02/06/2016 02/13/2016 take 1 tablet by oral route daily for 7 days clindamycin HCl 150 mg oral capsule 07/25/2016 08/01/2016 take 1 capsule (150 mg) by oral route 2 times per day for 7 days oxycodone 15 mg oral tablet 10/27/2016 take 2 tablet (30 mg) by oral route every 6 hours PRN Medrol (Humberto) 4 mg oral tablets,dose pack 11/19/2016 12/01/2016 take as directed for 6 days Norvasc 5 mg oral tablet take 1 tablet (5 mg) by oral route once daily Zithromax Z-Humberto 250 mg oral tablet 06/02/2017 06/07/2017 take 2 tablets (500 mg ) by oral route once daily for 1 day then 1 tablet (250 mg) by oral route once daily for 4 days colchicine 0.6 mg oral tablet 09/10/2017 09/11/2017 take 1 tablet (0.6 mg) by oral route once daily for 1 day Levaquin 250 mg oral tablet 11/11/2017 take 2 tablets (500 mg) today, then 1 tablet qod for 2 doses Discontinued Name Start Date Discontinued Date SIG Comments Zofran (as hydrochloride) 4 mg oral tablet 11/22/2015 07/06/2016 take 1 tablet every 8hrs prn nausea Viagra 100 mg oral tablet 07/20/2016 10/10/2016 take 1 tablet (100 mg) by oral route once daily as needed approximately 1 hour before sexual activity Zofran ODT 4 mg oral tablet,disintegrating 12/18/2016 06/10/2017 dissolve 1 tablet by oral route every 8 hours for 3 days triamcinolone acetonide 0.1 % topical ointment 02/01/2017 06/10/2017 apply a thin layer to the affected area(s) by topical route 2 times per day promethazine-codeine 6.25-10 mg/5 mL oral syrup 05/06/2017 06/10/2017 take 5 milliliters by oral route every 6 hours as needed, not to exceed 30 mL in 24 hours amoxicillin 500 mg oral tablet 07/14/2017 09/10/2017 take 1 tablet daily for 7 days. On days of dialysis take medication after dialysis Problem List Description Status Onset Hypertension Active Renal failure Active Rotator cuff tear Active Poor venous access Active 11/24/2017 ESRD (end stage renal disease) Active 11/24/2017 Vital Signs Date Time BP-Sys(mm[Hg] BP-Dahiana(mm[Hg]) HR(bpm) RR(rpm) Temp WT HT HC BMI BSA BMI Percentile O2 Sat(%) 01/03/2018 10:46:00 AM 162 mmHg 92 mmHg 82 bpm 18 rpm 97.9 F 183 lbs 68 in 27.8248 kg/m 1.9956 m 95 % 12/27/2017 10:50:00 AM 142 mmHg 80 mmHg 70 bpm 16 rpm 98.1 F 185 lbs 68 in 28.13 kg/m2 2.01 m2 95 % 12/17/2017 9:36:00 AM 122 mmHg 78 mmHg 88 bpm 20 rpm 98.8 F 182.125 lbs 68 in 27.6917 kg/m 1.9909 m 92 % 12/08/2017 8:35:00 AM 168 mmHg 96 mmHg 86 bpm 16 rpm 97.5 F 177 lbs 68 in 26.91 kg/m2 1.96 m2 96 % 11/24/2017 4:08:00 PM 185 mmHg 93 mmHg 86 bpm 20 rpm 98.2 F 182 lbs 68 in 27.6727 kg/m 1.9902 m 11/22/2017 1:47:00 PM 156 mmHg 88 mmHg 88 bpm 18 rpm 98.6 F 189 lbs 68 in 28.74 kg/m2 2.03 m2 99 % 11/17/2017 8:41:00 AM 138 mmHg 86 mmHg 76 bpm 18 rpm 97.3 F 186 lbs 68 in 28.2809 kg/m 2.0119 m 97 % 11/11/2017 9:42:00 AM 148 mmHg 90 mmHg 82 bpm 18 rpm 98.6 F 186.125 lbs 68 in 28.30 kg/m2 2.01 m2 93 % 10/29/2017 10:33:00 AM 150 mmHg 82 mmHg 78 bpm 16 rpm 97.9 F 183 lbs 68 in 27.8248 kg/m 1.9956 m 95 % 10/13/2017 9:52:00 AM 154 mmHg 82 mmHg 84 bpm 16 rpm 98.4 F 184 lbs 68 in 27.98 kg/m2 2.00 m2 97 % 09/28/2017 10:01:00 AM 136 mmHg 88 mmHg 76 bpm 18 rpm 98.1 F 179 lbs 68 in 27.2166 kg/m 1.9737 m 98 % 09/22/2017 9:31:00 AM 146 mmHg 94 mmHg 78 bpm 16 rpm 97.5 F 186 lbs 68 in 28.28 kg/m2 2.01 m2 95 % 09/10/2017 9:36:00 AM 148 mmHg 84 mmHg 88 bpm 17 rpm 98.2 F 180 lbs 68 in 27.3686 kg/m 1.9792 m 94 % 08/18/2017 8:31:00 AM 164 mmHg 92 mmHg 86 bpm 16 rpm 98.1 F 175 lbs 68 in 26.61 kg/m2 1.95 m2 97 % 07/23/2017 9:00:00 AM 158 mmHg 84 mmHg 86 bpm 16 rpm 98.1 F 177 lbs 68 in 26.9125 kg/m 1.9626 m 95 % 07/05/2017 8:16:00 AM 180 mmHg 100 mmHg 81 bpm 20 rpm 97.9 F 185.5 lbs 68 in 28.20 kg/m2 2.01 m2 92 % 06/28/2017 1:59:00 PM 164 mmHg 100 mmHg 82 bpm 20 rpm 98.8 F 185.375 lbs 68 in 28.1859 kg/m 2.0085 m 97 % 06/24/2017 9:09:00 AM 142 mmHg 90 mmHg 87 bpm 18 rpm 97.5 F 181 lbs 68 in 27.52 kg/m2 1.98 m2 92 % 06/16/2017 3:05:00 PM 162 mmHg 100 mmHg 90 bpm 22 rpm 99 F 180 lbs 68 in 27.3686 kg/m 1.9792 m 94 % 06/10/2017 9:14:00 AM 190 mmHg 104 mmHg 90 bpm 18 rpm 96 F 178.25 lbs 68 in 27.10 kg/m2 1.97 m2 91 % 05/14/2017 9:13:00 AM 156 mmHg 84 mmHg 92 bpm 16 rpm 97.7 F 178 lbs 68 in 27.0645 kg/m 1.9682 m 99 % 05/03/2017 3:33:00 PM 172 mmHg 86 mmHg 4 bpm 16 rpm 9 F 180 lbs 68 in 27.37 kg/m2 1.98 m2 100 % 04/12/2017 10:29:00 AM 150 mmHg 90 mmHg 91 bpm 16 rpm 97 F 192.125 lbs 68 in 29.2122 kg/m 2.0448 m 95 % 04/08/2017 9:03:00 AM 122 mmHg 78 mmHg 81 bpm 18 rpm 96.3 F 192.5 lbs 68 in 29.27 kg/m2 2.05 m2 100 % 03/15/2017 8:39:00 AM 150 mmHg 92 mmHg 86 bpm 16 rpm 97.7 F 193 lbs 68 in 29.3452 kg/m 2.0494 m 93 % 02/23/2017 9:13:00 AM 180 mmHg 96 mmHg 96 bpm 22 rpm 98.2 F 187.25 lbs 68 in 28.47 kg/m2 2.02 m2 97 % 02/22/2017 1:20:00 PM 210 mmHg 100 mmHg 95 bpm 24 rpm 97.8 F 187 lbs 68 in 28.433 kg/m 2.0173 m 100 % 02/11/2017 9:15:00 AM 154 mmHg 90 mmHg 90 bpm 22 rpm 97.4 F 187.5 lbs 68 in 28.51 kg/m2 2.02 m2 100 % 02/01/2017 2:07:00 PM 140 mmHg 72 mmHg 80 bpm 16 rpm 97.1 F 185 lbs 68 in 28.1289 kg/m 2.0065 m 98 % 01/25/2017 9:33:00 AM 146 mmHg 86 mmHg 74 bpm 20 rpm 96.9 F 185.25 lbs 68 in 28.17 kg/m2 2.01 m2 97 % 12/22/2016 10:04:00 AM 118 mmHg 78 mmHg 89 bpm 16 rpm 96 F 188.5 lbs 68.5 in 28.2442 kg/m 2.0328 m 98 % 12/18/2016 1:21:00 PM 140 mmHg 90 mmHg 82 bpm 20 rpm 98.5 F 188 lbs 68.5 in 28.17 kg/m2 2.03 m2 97 % 12/09/2016 9:42:00 AM 178 mmHg 86 mmHg 88 bpm 18 rpm 97.6 F 195 lbs 68.5 in 29.2181 kg/m 2.0676 m 98 % 11/19/2016 10:48:00 AM 142 mmHg 82 mmHg 92 bpm 20 rpm 97.1 F 189 lbs 68.5 in 28.32 kg/m2 2.04 m2 99 % 10/26/2016 10:18:00 AM 160 mmHg 90 mmHg 84 bpm 18 rpm 97.2 F 196 lbs 68.5 in 29.3679 kg/m 2.0729 m 98 % 10/13/2016 12:59:00 PM 142 mmHg 80 mmHg 88 bpm 16 rpm 98.5 F 193.25 lbs 68.5 in 28.96 kg/m2 2.06 m2 98 % 10/10/2016 1:11:00 PM 134 mmHg 90 mmHg 99 bpm 20 rpm 98.6 F 192 lbs 68.5 in 28.7686 kg/m 2.0516 m 96 % 09/29/2016 1:23:00 PM 157 mmHg 90 mmHg 85 bpm 20 rpm 97.8 F 192.5 lbs 68.5 in 28.84 kg/m2 2.05 m2 100 % 09/17/2016 10:53:00 AM 142 mmHg 90 mmHg 82 bpm 16 rpm 97.4 F 187.5 lbs 68.5 in 28.0943 kg/m 2.0274 m 97 % 09/07/2016 8:25:00 AM 146 mmHg 92 mmHg 76 bpm 16 rpm 96.8 F 191 lbs 68.5 in 28.62 kg/m2 2.05 m2 98 % 08/12/2016 8:58:00 AM 150 mmHg 88 mmHg 94 bpm 18 rpm 97.1 F 198 lbs 68.5 in 29.6676 kg/m 2.0834 m 98 % 07/20/2016 1:50:00 PM 158 mmHg 90 mmHg 82 bpm 20 rpm 97.7 F 204.25 lbs 68.5 in 30.60 kg/m2 2.12 m2 100 % 07/06/2016 10:42:00 AM 182 mmHg 96 mmHg 86 bpm 18 rpm 97.5 F 204 lbs 68.5 in 30.5666 kg/m 2.1148 m 100 % 05/26/2016 10:51:00 AM 140 mmHg 80 mmHg 82 bpm 18 rpm 97.6 F 201.25 lbs 68.5 in 30.15 kg/m2 2.10 m2 96 % 05/06/2016 9:57:00 AM 144 mmHg 92 mmHg 79 bpm 20 rpm 98 F 202 lbs 68.5 in 30.2669 kg/m 2.1044 m 100 % 04/22/2016 10:24:00 AM 148 mmHg 90 mmHg 102 bpm 18 rpm 97.8 F 206.375 lbs 68.5 in 30.92 kg/m2 2.13 m2 98 % 04/07/2016 10:46:00 AM 144 mmHg 86 mmHg 108 bpm 18 rpm 97.8 F 201 lbs 68.5 in 30.1171 kg/m 2.0991 m 100 % 03/16/2016 11:33:00 AM 120 mmHg 70 mmHg 58 bpm 18 rpm 96.7 F 210 lbs 68 in 31.93 kg/m2 2.14 m2 02/06/2016 10:15:00 AM 152 mmHg 84 mmHg 82 bpm 18 rpm 97.2 F 207 lbs 68.5 in 31.0161 kg/m 2.1302 m 97 % 12/31/2015 10:01:00 AM 138 mmHg 82 mmHg 72 bpm 20 rpm 96.4 F 201 lbs 68.5 in 30.12 kg/m2 2.10 m2 10/28/2015 3:20:00 PM 158 mmHg 88 mmHg 86 bpm 22 rpm 97.7 F 209.062 lbs 68.5 in 31.3252 kg/m 2.1408 m 100 % 10/08/2015 10:20:00 AM 164 mmHg 102 mmHg 81 bpm 18 rpm 96.3 F 199.5 lbs 68.5 in 29.89 kg/m2 2.09 m2 98 % 08/28/2015 9:27:00 AM 132 mmHg 82 mmHg 82 bpm 18 rpm 97.3 F 203 lbs 68.5 in 30.4168 kg/m 2.1096 m 100 % 06/21/2015 9:28:00 AM 122 mmHg 78 mmHg 88 bpm 16 rpm 97.9 F 196 lbs 68.5 in 29.37 kg/m2 2.07 m2 99 % 05/16/2015 9:33:00 AM 118 mmHg 82 mmHg 87 bpm 18 rpm 97.2 F 189 lbs 68.5 in 28.3191 kg/m 2.0355 m 99 % 03/05/2015 9:34:00 AM 138 mmHg 86 mmHg 78 bpm 18 rpm 97.9 F 184 lbs 68.5 in 27.57 kg/m2 2.01 m2 99 % 02/04/2015 8:23:00 AM 128 mmHg 82 mmHg 68 bpm 18 rpm 97.3 F 181 lbs 68.5 in 27.1204 kg/m 1.992 m 97 % 01/08/2015 9:02:00 AM 118 mmHg 72 mmHg 78 bpm 18 rpm 97.6 F 170 lbs 68.5 in 25.47 kg/m2 1.93 m2 11/29/2014 3:14:00 PM 140 mmHg 92 mmHg 77 bpm 18 rpm 99.1 F 172.125 lbs 68.5 in 25.7906 kg/m 1.9425 m 99 % 11/06/2014 9:55:00 AM 184 mmHg 108 mmHg 98 bpm 72 rpm 98.4 F 178 lbs 68.5 in 26.67 kg/m2 1.98 m2 10/09/2014 10:48:00 AM 124 mmHg 88 mmHg 72 bpm 18 rpm 96.8 F 175 lbs 68.5 in 26.2214 kg/m 1.9587 m Social History Name Description Comments Tobacco Former smoker 10 cigarettees daily. Stopped 2 months ago Alcohol Never History of Procedures Date Ordered Description Order Status 01/08/2015 12:00 AM CHEST X-RAY 2VW FRONTAL&LATL Reviewed 07/20/2016 12:00 AM Depo-Medrol 80mg Injection Reviewed 07/20/2016 12:00 AM Decadron 8mg Injection Reviewed 11/16/2016 12:00 AM UPR/L XTREMITY ART 2 LEVELS Returned 11/19/2016 12:00 AM NO CHARGE OV Reviewed 12/18/2016 12:00 AM Zofran 4mg Injection Reviewed 12/18/2016 12:00 AM THER/PROPH/DIAG INJ SC/IM Reviewed 02/23/2017 12:00 AM Rocephin 1 gram Injection Reviewed 04/12/2017 12:00 AM X-RAY EXAM L-S SPINE 2/3 VWS Returned 06/24/2017 12:00 AM CHEST X-RAY 2VW FRONTAL&LATL Returned 11/17/2017 12:00 AM Rocephin 1 gram Injection Reviewed 12/17/2017 12:00 AM Rocephin 1 gram Injection Reviewed Results Summary Not available. History Of Immunizations Not available. History of Past Illness Name Date of Onset Comments Renal failure Hypertension Rotator cuff tear right ulcer Colonic Polyps, Personal History of Poor venous access 11/24/2017 ESRD (end stage renal disease) 11/24/2017 Hypertension Oct 09 2014 11:03AM Chronic pain Oct 09 2014 11:03AM Hypertension Nov 06 2014 10:00AM Chronic pain Nov 06 2014 10:00AM Depression and anxiety Nov 29 2014 3:16PM Cough Jan 08 2015 9:07AM Chronic pain Jan 08 2015 9:07AM Low Back Pain Feb 04 2015 8:29AM Renal Failure Feb 04 2015 8:29AM Hypersomnia Mar 05 2015 9:41AM Chronic pain Mar 05 2015 9:41AM Chronic back pain May 16 2015 9:38AM Anxiety May 16 2015 9:38AM Abdominal Pain Jun 21 2015 9:35AM TRENA (obstructive sleep apnea) Jun 21 2015 9:35AM Abdominal Pain, lower Jun 26 2015 2:22PM Hypertension Aug 28 2015 9:35AM Chronic Obstructive Pulmonary Disease Aug 28 2015 9:35AM Chronic back pain Aug 28 2015 9:35AM Anxiety Aug 28 2015 9:35AM Chronic back pain Oct 08 2015 10:23AM Low Back Pain Oct 28 2015 3:24PM Other chronic pain Dec 31 2015 10:08AM Dysuria Jan 21 2016 11:46AM Low Back Pain Feb 06 2016 10:19AM Bronchitis Feb 06 2016 10:19AM Anxiety Mar 16 2016 11:21AM Other chronic pain Mar 16 2016 11:21AM Renal failure Mar 16 2016 11:21AM Dorsalgia, unspecified Apr 07 2016 10:54AM Other chronic pain Apr 07 2016 10:54AM Low Back Pain Apr 22 2016 10:26AM Pain of left hip joint Apr 22 2016 10:26AM Low Back Pain May 06 2016 9:59AM Anxiety May 06 2016 9:59AM Low Back Pain May 26 2016 10:52AM Anxiety May 26 2016 10:52AM Low Back Pain Jul 06 2016 10:50AM Pain of left hip joint Jul 20 2016 1:51PM Erectile disorder due to medical condition in male Jul 20 2016 1:51PM Urticaria Jul 20 2016 1:51PM Low Back Pain Aug 12 2016 9:03AM Low Back Pain Sep 07 2016 8:29AM Anxiety Sep 17 2016 10:55AM Low Back Pain Sep 29 2016 1:25PM Anxiety Sep 29 2016 1:25PM End stage kidney disease Oct 13 2016 1:01PM Low Back Pain Oct 26 2016 10:26AM Anxiety Oct 26 2016 10:26AM Decreased pedal pulses Nov 16 2016 10:26AM Bronchitis Nov 19 2016 10:50AM Anxiety Nov 19 2016 10:50AM Low Back Pain Dec 09 2016 9:48AM End stage renal disease Dec 09 2016 9:48AM Cough Dec 09 2016 9:48AM Viral gastroenteritis Dec 18 2016 1:22PM Low back pain Dec 22 2016 10:07AM Other chronic pain Dec 22 2016 10:07AM Low Back Pain Jan 25 2017 9:35AM Gastritis Jan 25 2017 9:35AM Upper Respiratory Infection Feb 01 2017 2:12PM Anxiety Feb 11 2017 9:17AM Chronic pain Feb 11 2017 9:17AM Gastritis Feb 11 2017 9:17AM Acute gastritis Feb 22 2017 1:20PM Hypertension Feb 23 2017 9:15AM Bronchitis Feb 23 2017 9:15AM End stage renal disease Mar 15 2017 8:45AM Chronic pain Mar 15 2017 8:45AM Chronic pain Apr 08 2017 9:06AM End stage renal disease Apr 08 2017 9:06AM Low Back Pain Apr 12 2017 10:31AM KAY (generalized anxiety disorder) May 03 2017 3:38PM Chronic pain May 14 2017 9:20AM Hypertension Jun 10 2017 9:16AM Chronic pain Jun 10 2017 9:16AM Essential hypertension Jun 16 2017 3:08PM Renal failure Jun 16 2017 3:08PM Dyspnea Jun 24 2017 9:16AM Anxiety Jun 24 2017 9:16AM Chronic pain Jun 24 2017 9:16AM Pulmonary edema Jun 28 2017 2:02PM Dyspnea Jun 28 2017 2:02PM Chronic Obstructive Pulmonary Disease Jul 05 2017 8:23AM Pain of right hip joint Jul 05 2017 8:23AM Chronic pain Jul 05 2017 8:23AM Low Back Pain Jul 23 2017 9:05AM Chronic pain Jul 23 2017 9:05AM Renal failure Jul 23 2017 9:05AM Chronic pain Aug 18 2017 8:33AM End stage kidney disease Aug 18 2017 8:33AM Gout Sep 10 2017 9:39AM KAY (generalized anxiety disorder) Sep 10 2017 9:39AM Chronic pain Sep 22 2017 9:36AM Hernia Sep 22 2017 9:36AM Gout Sep 28 2017 10:03AM Chronic pain Sep 28 2017 10:03AM Chronic pain Oct 13 2017 9:57AM Anxiety Oct 13 2017 9:57AM Chronic pain Oct 29 2017 10:38AM Bronchitis Nov 11 2017 9:44AM Chronic pain Nov 11 2017 9:44AM Bronchitis Nov 17 2017 8:47AM ESRD (end stage renal disease) Nov 17 2017 8:47AM Poor intravenous access Nov 17 2017 8:47AM SVT (supraventricular tachycardia) Nov 22 2017 1:51PM Anxiety Nov 22 2017 1:51PM Poor venous access Nov 24 2017 4:08PM ESRD (end stage renal disease) Nov 24 2017 4:08PM Chronic Obstructive Pulmonary Disease Dec 08 2017 8:40AM Chronic pain Dec 08 2017 8:40AM Chronic Obstructive Pulmonary Disease Dec 17 2017 9:38AM Chronic Obstructive Pulmonary Disease Dec 27 2017 10:54AM Chronic pain Dec 27 2017 10:54AM Pleural effusion Jan 03 2018 10:51AM End stage renal disease Jan 03 2018 10:51AM Payers Insurance Name Company Name Plan Name Plan Number Policy Number Policy Group Number Start Date Medicare RHC Medicare RHC [id number] [id number] - RHC [id number] N/A [facility] [id number] N/A [employer] [place] [id number] N/A Medicare RHC Medicare RHC [id number] N/A Medicare Part A Medicare Part A [id number] N/A [employer] [place] [employer] [place] [id number] N/A Medicare Part A Medicare - Lab/Xray [id number] N/A Medicare RHC Medicare RHC [id number] N/A Medicare Part B Medicare Of [place] [id number] N/A [employer] [place] [employer] [place] [id number] N/A Medicare RHC Medicare RHC [id number] Thursday, March 08, 2007 History of Encounters Visit Date Visit Type Provider 01/03/2018 Office visit Martin Lopez MD 12/27/2017 Office visit Martin Lopez MD 12/17/2017 Office visit Martin Lopez MD 12/08/2017 Office visit Martin Lopez MD 12/04/2017 Surgery Ishan Seymour DO 11/24/2017 Office visit Ishan Seymour DO 11/22/2017 Office visit Martin Lopez MD 11/17/2017 Office visit Martin Lopez MD 11/15/2017 Hospital Karissa Aguilar MD 11/11/2017 Office visit Martin Lopez MD 10/29/2017 Office visit Martin Lopez MD 10/13/2017 Office visit Martin Lopez MD 10/10/2017 Hospital Karissa Aguilar MD 09/28/2017 Office visit Martin Lopez MD 09/22/2017 Office visit Martin Lopez MD 09/10/2017 Office visit Martin Lopez MD 08/18/2017 Office visit Martin Lopez MD 07/23/2017 Office visit Martin Lopez MD 07/05/2017 Office visit Martin Lopez MD 06/28/2017 Office visit Martin Lopez MD 06/24/2017 Office visit Martin Lopez MD 06/16/2017 Office visit Britta Garces APRN 06/10/2017 Office visit Martin Lopez MD 05/14/2017 Office visit Martin Lopez MD 05/03/2017 Office visit Martin Lopez MD 04/12/2017 Office visit Martin Lopez MD 04/08/2017 Office visit Martin Lopez MD 03/15/2017 Office visit Martin Lopez MD 03/08/2017 Hospital Karissa Aguilar MD 02/23/2017 Office visit Martin Lopez MD 02/22/2017 Office visit Ross Abraham MD 02/11/2017 Office visit Martin Lopez MD 02/01/2017 Office visit Martin Lopez MD 01/25/2017 Office visit Martin Lopez MD 12/22/2016 Office visit Martin Lopez MD 12/18/2016 Office visit Maverick Urbina FIELD TECHNICAL SUPPORT CONSULTANT 12/13/2016 Hospital Karissa Aguilar MD 12/09/2016 Office visit Martin Lopez MD 11/23/2016 Hospital Karissa Aguilar MD 11/19/2016 Office visit Martin Lopez MD 10/26/2016 Office visit Martin Lopez MD 10/13/2016 Office visit Martin Lopez MD 10/11/2016 Hospital Luanne Purcell MD 10/11/2016 Surgery Ishan Seymour DO 10/11/2016 Hospital Karissa Aguilar MD 10/10/2016 Office visit Adriana Angel FIELD TECHNICAL SUPPORT CONSULTANT 09/29/2016 Office visit Martin Lopez MD 09/17/2016 Office visit Martin Lopez MD 09/07/2016 Office visit Martin Lopez MD 08/12/2016 Office visit Martin Lopez MD 07/20/2016 Office visit Martin Lopez MD 07/06/2016 Office visit Martin Lopez MD 05/26/2016 Office visit Martin Lopez MD 05/06/2016 Office visit Martin Lopez MD 04/22/2016 Office visit Martin Lopez MD 04/07/2016 Office visit Martin Lopez MD 03/16/2016 Office visit Martin Lopez MD 02/20/2016 Hospital Karissa Aguilar MD 02/06/2016 Office visit Martin Lopez MD 12/31/2015 Office visit Martin Lopez MD 10/28/2015 Office visit Martin Lopez MD 10/08/2015 Office visit Martin Lopez MD 08/28/2015 Office visit Martin Lopez MD 08/02/2015 Hospital Ross Abraham MD 06/26/2015 Office visit Ross Abraham MD 06/21/2015 Office visit Martin Lopez MD 05/16/2015 Office visit Martin Lopez MD 03/05/2015 Office visit Martin Lopez MD 02/04/2015 Office visit Martin Lopez MD 01/08/2015 Office visit Martin Lopez MD 11/29/2014 Office visit Martin Lopez MD 11/06/2014 Office visit Martin Lopez MD 10/09/2014 Office visit Martin Lopez MD
--- OUTSIDE RECORDS SUMMARY | 2018-01-03 20:14 | XMS REPORT ---
Author Author Martin Lopez [facility] Address [address] [place], [place] [id number] Care Team Providers Care Ornamental Rail Installer Name Role Phone Martin Lopez PCP Martin [...] HC BMI BSA BMI Percentile O2 Sat(%) 12/27/2017 10:50:00 AM 142 mmHg 80 mmHg 70 bpm 16 rpm 98.1 F 185 lbs 68 in 28.1289 kg/m 2.0065 m 95 % 12/17/2017 9:36:00 AM 122 mmHg 78 mmHg 88 bpm 20 rpm 98.8 F 182.125 lbs 68 in 27.69 kg/m2 1.99 m2 92 % 12/08/2017 8:35:00 AM 168 mmHg 96 mmHg 86 bpm 16 rpm 97.5 F 177 lbs 68 in 26.9125 kg/m 1.9626 m 96 % 11/24/2017 4:08:00 PM 185 mmHg 93 mmHg 86 bpm 20 rpm 98.2 F 182 lbs 68 in 27.67 kg/m2 1.99 m2 11/22/2017 1:47:00 PM 156 mmHg 88 mmHg 88 bpm 18 rpm 98.6 F 189 lbs 68 in 28.7371 kg/m 2.0281 m 99 % 11/17/2017 8:41:00 AM 138 mmHg 86 mmHg 76 bpm 18 rpm 97.3 F 186 lbs 68 in 28.28 kg/m2 2.01 m2 97 % 11/11/2017 9:42:00 AM 148 mmHg 90 mmHg 82 bpm 18 rpm 98.6 F 186.125 lbs 68 in 28.2999 kg/m 2.0126 m 93 % 10/29/2017 10:33:00 AM 150 mmHg 82 mmHg 78 bpm 16 rpm 97.9 F 183 lbs 68 in 27.82 kg/m2 2.00 m2 95 % 10/13/2017 9:52:00 AM 154 mmHg 82 mmHg 84 bpm 16 rpm 98.4 F 184 lbs 68 in 27.9768 kg/m 2.0011 m 97 % 09/28/2017 10:01:00 AM 136 mmHg 88 mmHg 76 bpm 18 rpm 98.1 F 179 lbs 68 in 27.22 kg/m2 1.97 m2 98 % 09/22/2017 9:31:00 AM 146 mmHg 94 mmHg 78 bpm 16 rpm 97.5 F 186 lbs 68 in 28.2809 kg/m 2.0119 m 95 % 09/10/2017 9:36:00 AM 148 mmHg 84 mmHg 88 bpm 17 rpm 98.2 F 180 lbs 68 in 27.37 kg/m2 1.98 m2 94 % 08/18/2017 8:31:00 AM 164 mmHg 92 mmHg 86 bpm 16 rpm 98.1 F 175 lbs 68 in 26.6084 kg/m 1.9515 m 97 % 07/23/2017 9:00:00 AM 158 mmHg 84 mmHg 86 bpm 16 rpm 98.1 F 177 lbs 68 in 26.91 kg/m2 1.96 m2 95 % 07/05/2017 8:16:00 AM 180 mmHg 100 mmHg 81 bpm 20 rpm 97.9 F 185.5 lbs 68 in 28.2049 kg/m 2.0092 m 92 % 06/28/2017 1:59:00 PM 164 mmHg 100 mmHg 82 bpm 20 rpm 98.8 F 185.375 lbs 68 in 28.19 kg/m2 2.01 m2 97 % 06/24/2017 9:09:00 AM 142 mmHg 90 mmHg 87 bpm 18 rpm 97.5 F 181 lbs 68 in 27.5207 kg/m 1.9847 m 92 % 06/16/2017 3:05:00 PM 162 mmHg 100 mmHg 90 bpm 22 rpm 99 F 180 lbs 68 in 27.37 kg/m2 1.98 m2 94 % 06/10/2017 9:14:00 AM 190 mmHg 104 mmHg 90 bpm 18 rpm 96 F 178.25 lbs 68 in 27.1025 kg/m 1.9696 m 91 % 05/14/2017 9:13:00 AM 156 mmHg 84 mmHg 92 bpm 16 rpm 97.7 F 178 lbs 68 in 27.06 kg/m2 1.97 m2 99 % 05/03/2017 3:33:00 PM 172 mmHg 86 mmHg 4 bpm 16 rpm 9 F 180 lbs 68 in 27.3686 kg/m 1.9792 m 100 % 04/12/2017 10:29:00 AM 150 mmHg 90 mmHg 91 bpm 16 rpm 97 F 192.125 lbs 68 in 29.21 kg/m2 2.04 m2 95 % 04/08/2017 9:03:00 AM 122 mmHg 78 mmHg 81 bpm 18 rpm 96.3 F 192.5 lbs 68 in 29.2692 kg/m 2.0468 m 100 % 03/15/2017 8:39:00 AM 150 mmHg 92 mmHg 86 bpm 16 rpm 97.7 F 193 lbs 68 in 29.35 kg/m2 2.05 m2 93 % 02/23/2017 9:13:00 AM 180 mmHg 96 mmHg 96 bpm 22 rpm 98.2 F 187.25 lbs 68 in 28.471 kg/m 2.0187 m 97 % 02/22/2017 1:20:00 PM 210 mmHg 100 mmHg 95 bpm 24 rpm 97.8 F 187 lbs 68 in 28.43 kg/m2 2.02 m2 100 % 02/11/2017 9:15:00 AM 154 mmHg 90 mmHg 90 bpm 22 rpm 97.4 F 187.5 lbs 68 in 28.509 kg/m 2.02 m 100 % 02/01/2017 2:07:00 PM 140 mmHg 72 mmHg 80 bpm 16 rpm 97.1 F 185 lbs 68 in 28.1289 kg/m 2.01 m2 98 % 01/25/2017 9:33:00 AM 146 mmHg 86 mmHg 74 bpm 20 rpm 96.9 F 185.25 lbs 68 in 28.17 kg/m2 2.0079 m 97 % 12/22/2016 10:04:00 AM 118 mmHg 78 mmHg 89 bpm 16 rpm 96 F 188.5 lbs 68.5 in 28.2442 kg/m 2.03 m2 98 % 12/18/2016 1:21:00 PM 140 mmHg 90 mmHg 82 bpm 20 rpm 98.5 F 188 lbs 68.5 in 28.17 kg/m2 2.0301 m 97 % 12/09/2016 9:42:00 AM 178 mmHg 86 mmHg 88 bpm 18 rpm 97.6 F 195 lbs 68.5 in 29.2181 kg/m 2.07 m2 98 % 11/19/2016 10:48:00 AM 142 mmHg 82 mmHg 92 bpm 20 rpm 97.1 F 189 lbs 68.5 in 28.32 kg/m2 2.0355 m 99 % 10/26/2016 10:18:00 AM 160 mmHg 90 mmHg 84 bpm 18 rpm 97.2 F 196 lbs 68.5 in 29.3679 kg/m 2.07 m2 98 % 10/13/2016 12:59:00 PM 142 mmHg 80 mmHg 88 bpm 16 rpm 98.5 F 193.25 lbs 68.5 in 28.96 kg/m2 2.0583 m 98 % 10/10/2016 1:11:00 PM 134 mmHg 90 mmHg 99 bpm 20 rpm 98.6 F 192 lbs 68.5 in 28.7686 kg/m 2.05 m2 96 % 09/29/2016 1:23:00 PM 157 mmHg 90 mmHg 85 bpm 20 rpm 97.8 F 192.5 lbs 68.5 in 28.84 kg/m2 2.0543 m 100 % 09/17/2016 10:53:00 AM 142 mmHg 90 mmHg 82 bpm 16 rpm 97.4 F 187.5 lbs 68.5 in 28.0943 kg/m 2.03 m2 97 % 09/07/2016 8:25:00 AM 146 mmHg 92 mmHg 76 bpm 16 rpm 96.8 F 191 lbs 68.5 in 28.62 kg/m2 2.0463 m 98 % 08/12/2016 8:58:00 AM 150 mmHg 88 mmHg 94 bpm 18 rpm 97.1 F 198 lbs 68.5 in 29.6676 kg/m 2.08 m2 98 % 07/20/2016 1:50:00 PM 158 mmHg 90 mmHg 82 bpm 20 rpm 97.7 F 204.25 lbs 68.5 in 30.60 kg/m2 2.116 m 100 % 07/06/2016 10:42:00 AM 182 mmHg 96 mmHg 86 bpm 18 rpm 97.5 F 204 lbs 68.5 in 30.5666 kg/m 2.11 m2 100 % 05/26/2016 10:51:00 AM 140 mmHg 80 mmHg 82 bpm 18 rpm 97.6 F 201.25 lbs 68.5 in 30.15 kg/m2 2.1005 m 96 % 05/06/2016 9:57:00 AM 144 mmHg 92 mmHg 79 bpm 20 rpm 98 F 202 lbs 68.5 in 30.2669 kg/m 2.10 m2 100 % 04/22/2016 10:24:00 AM 148 mmHg 90 mmHg 102 bpm 18 rpm 97.8 F 206.375 lbs 68.5 in 30.92 kg/m2 2.127 m 98 % 04/07/2016 10:46:00 AM 144 mmHg 86 mmHg 108 bpm 18 rpm 97.8 F 201 lbs 68.5 in 30.1171 kg/m 2.10 m2 100 % 03/16/2016 11:33:00 AM 120 mmHg 70 mmHg 58 bpm 18 rpm 96.7 F 210 lbs 68 in 31.93 kg/m2 2.1378 m 02/06/2016 10:15:00 AM 152 mmHg 84 mmHg 82 bpm 18 rpm 97.2 F 207 lbs 68.5 in 31.0161 kg/m 2.13 m2 97 % 12/31/2015 10:01:00 AM 138 mmHg 82 mmHg 72 bpm 20 rpm 96.4 F 201 lbs 68.5 in 30.12 kg/m2 2.0991 m 10/28/2015 3:20:00 PM 158 mmHg 88 mmHg 86 bpm 22 rpm 97.7 F 209.062 lbs 68.5 in 31.3252 kg/m 2.14 m2 100 % 10/08/2015 10:20:00 AM 164 mmHg 102 mmHg 81 bpm 18 rpm 96.3 F 199.5 lbs 68.5 in 29.89 kg/m2 2.0913 m 98 % 08/28/2015 9:27:00 AM 132 mmHg 82 mmHg 82 bpm 18 rpm 97.3 F 203 lbs 68.5 in 30.4168 kg/m 2.11 m2 100 % 06/21/2015 9:28:00 AM 122 mmHg 78 mmHg 88 bpm 16 rpm 97.9 F 196 lbs 68.5 in 29.37 kg/m2 2.0729 m 99 % 05/16/2015 9:33:00 AM 118 mmHg 82 mmHg 87 bpm 18 rpm 97.2 F 189 lbs 68.5 in 28.3191 kg/m 2.04 m2 99 % 03/05/2015 9:34:00 AM 138 mmHg 86 mmHg 78 bpm 18 rpm 97.9 F 184 lbs 68.5 in 27.57 kg/m2 2.0084 m 99 % 02/04/2015 8:23:00 AM 128 mmHg 82 mmHg 68 bpm 18 rpm 97.3 F 181 lbs 68.5 in 27.1204 kg/m 1.99 m2 97 % 01/08/2015 9:02:00 AM 118 mmHg 72 mmHg 78 bpm 18 rpm 97.6 F 170 lbs 68.5 in 25.47 kg/m2 1.9305 m 11/29/2014 3:14:00 PM 140 mmHg 92 mmHg 77 bpm 18 rpm 99.1 F 172.125 lbs 68.5 in 25.7906 kg/m 1.94 m2 99 % 11/06/2014 9:55:00 AM 184 mmHg 108 mmHg 98 bpm 72 rpm 98.4 F 178 lbs 68.5 in 26.67 kg/m2 1.9754 m 10/09/2014 10:48:00 AM 124 mmHg 88 mmHg 72 bpm 18 rpm 96.8 F 175 lbs 68.5 in 26.2214 kg/m 1.96 m2 Social History Name Description Comments Tobacco Former [...] 10:54AM Chronic pain Dec 27 2017 10:54AM Payers Insurance Name Company Name Plan Name Plan Number Policy Number Policy Group Number Start Date Medicare RHC Medicare RHC [id number] N/A [facility] Plan - RHC [id number] N/A [facility] [id number] N/A [employer] [place] [id number] N/A Medicare RHC Medicare RHC [id number] N/A Medicare Part A Medicare Part A [id number] N/A [employer] [place] State [place] [employer] [place] [id number] N/A Medicare Part A Medicare - Lab/Xray [id number] N/A Medicare RHC Medicare RHC [id number] N/A Medicare Part B Medicare Of [place] [id number] N/A [employer] [place] [employer] [place] [id number] N/A Medicare RHC Medicare RHC [id number] Thursday, March 08, 2007 History of Encounters Visit Date Visit Type Provider 12/27/2017 Office visit Martin Lopez MD 12/17/2017 Office visit Martin Lopez MD 12/08/2017 Office visit Martin Lopez MD 12/04/2017 Surgery Ishan Merajohn DO 11/24/2017 Office visit Ishan Seymour DO 11/22/2017 Office visit Martin Lopez MD 11/17/2017 Office visit Martin Lopez MD 11/15/2017 Hospital Karissa Aguilar MD 11/11/2017 Office visit Martin Lopez MD 10/29/2017 Office visit Martin Lopez MD 10/13/2017 Office visit Martin Lopez MD 10/10/2017 Hospital Karissa Aguilar MD 09/28/2017 Office visit Martin Lopez MD 09/22/2017 Office visit Martin Lopez MD 09/10/2017 Office visit Mratin Lopez MD 08/18/2017 Office visit Martin Lopez MD 07/23/2017 Office visit Martin Lopez MD 07/05/2017 Office visit Martin Lopez MD 06/28/2017 Office visit Martin Lopez MD 06/24/2017 Office visit Martin Lopez MD 06/16/2017 Office visit Britta Garces WELL SERVICE FLOOR WORKER 06/10/2017 Office visit Martin Lopez MD 05/14/2017 [...] Lopez MD 12/18/2016 Office visit Maverick Urbina APRN 12/13/2016 Hospital Karissa Aguilar MD 12/09/2016 Office visit Martin Lopez MD 11/23/2016 Hospital Karissa Aguilar MD 11/19/2016 Office visit Martin Lopez MD 10/26/2016 Office visit Martin Lopez MD 10/13/2016 Office visit Martin Lopez MD 10/11/2016 Hospital Luanne Purcell MD 10/11/2016 Surgery Ishan Lion DO 10/11/2016 Hospital Karissa Aguilar MD 10/10/2016 Office visit Adriana Angel WELL SERVICE FLOOR WORKER 09/29/2016 Office visit Martin Lopez MD 09/17/2016 [...] 03/16/2016 Office visit Martin Lopez MD 02/20/2016 [facility] Karissa Aguilar MD 02/06/2016 Office visit [...]
--- OUTSIDE RECORDS SUMMARY | 2018-01-03 20:15 | XMS REPORT ---
Author Author Martin Lopez [facility] Address [address] [place], [place] [id number] Care Team Providers Care Dry Cell Tester Name Role Phone Martin Lopez PCP Martin [...] times per day Nebulizer 12/08/2017 as directed oxycodone 30 mg oral tablet 12/08/2017 take 1 tablet by oral route every 4 hours as needed promethazine-codeine 6.25-10 mg/5 mL oral syrup 12/17/2017 take 5 milliliters by oral route every 4 hours as needed Coreg 25 mg oral tablet 12/17/2017 05/16/2018 take 1 tablet (25 mg) by oral route 2 times per day with food for 30 days lisinopril 40 mg oral tablet 12/17/2017 TAKE 1 TABLET BY MOUTH ONCE DAILY OxyContin 60 mg oral tablet,oral only,ext.rel.12 hr 12/24/2017 01/23/2018 take 1 tablet (60 mg) by oral route every 12 hours for 30 days Name Start Date Expiration Date SIG Comments [...] Obstructive Pulmonary Disease Dec 17 2017 9:38AM Payers Insurance Name Company Name Plan Name Plan Number Policy Number Policy Group Number Start Date Medicare RHC Medicare RHC [id number] N/A [facility] - RHC [id number] N/A [facility] Plan [id number] N/A [employer] [place] [employer] [place] [id number] N/A Medicare RHC Medicare RHC [id number] N/A Medicare Part A Medicare Part A [id number] N/A [employer] - RHC - [place] State Plan [employer] [place] State Plan [id number] N/A Medicare Part A Medicare - Lab/Xray [id number] N/A Medicare RHC Medicare RHC [id number] N/A Medicare Part B Medicare Of [place] [id number] N/A [employer] [place] State Plan [employer] [place] State Plan [id number] N/A Medicare RHC Medicare RHC [id number] Thursday, March 08, 2007 History of Encounters [...] Lopez MD 06/16/2017 Office visit Britta Garces TRENCH DIGGER 06/10/2017 Office visit Martin Lopez MD 05/14/2017 [...] Lopez MD 12/18/2016 Office visit Maverick Urbina TRENCH DIGGER 12/13/2016 Hospital Karissa Aguilar MD 12/09/2016 Office visit Martin Lopez MD 11/23/2016 Hospital Karissa Aguilar MD 11/19/2016 Office visit Martin Lopez MD 10/26/2016 Office visit Martin Lopez MD 10/13/2016 Office visit Martin Lopez MD 10/11/2016 Hospital Luanne Purcell MD 10/11/2016 Surgery Ishan Seymour DO 10/11/2016 Hospital Karissa Aguilar MD 10/10/2016 Office visit Adriana Angel TRENCH DIGGER 09/29/2016 Office visit Martin Lopez MD 09/17/2016 [...]
--- OUTSIDE RECORDS SUMMARY | 2018-01-03 20:17 | XMS REPORT ---
Author Author Martin Lopez [facility] Address [address] [place], [place] [id number] Care Team Providers Care Or Nurse Manager Name Role Phone Martin Lopez PCP Martin [...] QD three times a week after dialysis lisinopril 40 mg oral tablet 06/21/2017 TAKE 1 TABLET BY MOUTH ONCE DAILY Dialysis on et Wed Xanax 2 mg oral tablet 11/22/2017 03/22/2018 take 1 tablet by oral route every 4 hours as needed for 30 days Sensipar 30 mg oral tablet take 1 tablet (30 mg) by oral route once daily with food Calcium 600 600 mg calcium (1,500 mg) oral tablet take 1 tablet by oral route daily OxyContin 60 mg oral tablet,oral only,ext.rel.12 hr 11/25/2017 12/25/2017 take 1 tablet (60 mg) by oral route every 12 hours for 30 days ipratropium-albuterol 0.5 mg-3 mg(2.5 mg base)/3 mL inhalation solution for nebulization 12/08/2017 inhale 3 milliliters by nebulization route 4 times per day Nebulizer 12/08/2017 as directed oxycodone 30 mg oral tablet 12/08/2017 take 1 tablet by oral route every 4 hours as needed promethazine-codeine 6.25-10 mg/5 mL oral syrup 12/08/2017 take 5 milliliters by oral route every [...] 12/01/2016 take as directed for 6 days Coreg 25 mg oral tablet 02/23/2017 07/23/2017 take 1 tablet (25 mg) by oral route 2 times per day with food for 30 days Norvasc 5 mg oral tablet take [...] HC BMI BSA BMI Percentile O2 Sat(%) 12/08/2017 8:35:00 AM 168 mmHg 96 mmHg [...] F 180 lbs 68 in 27.3686 kg/m 1.98 m2 94 % 08/18/2017 8:31:00 AM 164 mmHg 92 mmHg 86 bpm 16 rpm 98.1 F 175 lbs 68 in 26.61 kg/m2 1.9515 m 97 % 07/23/2017 9:00:00 AM 158 mmHg 84 mmHg 86 bpm 16 rpm 98.1 F 177 lbs 68 in 26.9125 kg/m 1.96 m2 95 % 07/05/2017 8:16:00 AM 180 mmHg 100 mmHg 81 bpm 20 rpm 97.9 F 185.5 lbs 68 in 28.20 kg/m2 2.0092 m 92 % 06/28/2017 1:59:00 PM 164 mmHg 100 mmHg 82 bpm 20 rpm 98.8 F 185.375 lbs 68 in 28.1859 kg/m 2.01 m2 97 % 06/24/2017 9:09:00 AM 142 mmHg 90 mmHg 87 bpm 18 rpm 97.5 F 181 lbs 68 in 27.52 kg/m2 1.9847 m 92 % 06/16/2017 3:05:00 PM 162 mmHg 100 mmHg 90 bpm 22 rpm 99 F 180 lbs 68 in 27.3686 kg/m 1.98 m2 94 % 06/10/2017 9:14:00 AM 190 mmHg 104 mmHg 90 bpm 18 rpm 96 F 178.25 lbs 68 in 27.10 kg/m2 1.9696 m 91 % 05/14/2017 9:13:00 AM 156 mmHg 84 mmHg 92 bpm 16 rpm 97.7 F 178 lbs 68 in 27.0645 kg/m 1.97 m2 99 % 05/03/2017 3:33:00 PM 172 mmHg 86 mmHg 4 bpm 16 rpm 9 F 180 lbs 68 in 27.37 kg/m2 1.9792 m 100 % 04/12/2017 10:29:00 AM 150 mmHg 90 mmHg 91 bpm 16 rpm 97 F 192.125 lbs 68 in 29.2122 kg/m 2.04 m2 95 % 04/08/2017 9:03:00 AM 122 mmHg 78 mmHg 81 bpm 18 rpm 96.3 F 192.5 lbs 68 in 29.27 kg/m2 2.0468 m 100 % 03/15/2017 8:39:00 AM 150 mmHg 92 mmHg 86 bpm 16 rpm 97.7 F 193 lbs 68 in 29.3452 kg/m 2.05 m2 93 % 02/23/2017 9:13:00 AM 180 mmHg 96 mmHg 96 bpm 22 rpm 98.2 F 187.25 lbs 68 in 28.47 kg/m2 2.0187 m 97 % 02/22/2017 1:20:00 PM 210 mmHg 100 mmHg 95 bpm 24 rpm 97.8 F 187 lbs 68 in 28.433 kg/m 2.02 m2 100 % 02/11/2017 9:15:00 AM 154 mmHg 90 mmHg 90 bpm 22 rpm 97.4 F 187.5 lbs 68 in 28.51 kg/m2 2.02 m 100 % 02/01/2017 2:07:00 PM [...] 8:40AM Chronic pain Dec 08 2017 8:40AM Payers Insurance Name Company Name Plan Name Plan Number Policy Number Policy Group Number Start Date Medicare RHC Medicare RHC [id number] N/A [facility] - RHC [id number] N/A [facility] Plan [id number] N/A [employer] [place] [id number] N/A Medicare RHC Medicare RHC [id number] N/A Medicare Part A Medicare Part A [id number] N/A [employer] [place] State [place] [employer] [place] State [place] [id number] N/A Medicare Part A Medicare - Lab/Xray [id number] N/A Medicare RHC Medicare RHC [id number] N/A Medicare Part B Medicare Of [place] [id number] N/A [employer] [place] State Plan [employer] [place] State Plan [id number] N/A Medicare RHC Medicare RHC [id number] Thursday, March 08, 2007 History of Encounters Visit Date Visit Type Provider 12/08/2017 Office visit Martin Lopez MD 12/04/2017 Surgery Ishan Seymour DO 11/24/2017 Office visit Ishan Seymour DO 11/22/2017 Office visit Martin Lopez MD 11/17/2017 Office visit Martin Lopez MD 11/11/2017 Office visit Martin Lopez MD 10/29/2017 Office visit Martin Lopez MD 10/13/2017 Office visit Martin Lopez MD 10/10/2017 [facility] Karissa Aguilar MD 09/28/2017 Office visit Martin Lopez MD 09/22/2017 Office visit Martin Lopez MD 09/10/2017 Office visit Martin Lopez MD 08/18/2017 Office visit Martin Lopez MD 07/23/2017 Office visit Martin Lopez MD 07/05/2017 Office visit Martin Lopez MD 06/28/2017 Office visit Martin Lopez MD 06/24/2017 Office visit Martin Lopez MD 06/16/2017 Office visit Britta Garces FLAME CUTTING MACHINE OPERATOR 06/10/2017 Office visit Martin Lopez MD 05/14/2017 [...] Lopez MD 12/18/2016 Office visit Maverick Urbina FLAME CUTTING MACHINE OPERATOR 12/13/2016 Hospital Karissa Aguilar MD 12/09/2016 Office visit Martin Lopez MD 11/23/2016 Hospital Karissa Aguilar MD 11/19/2016 Office visit Martin Lopez MD 10/26/2016 Office visit Martin Lopez MD 10/13/2016 Office visit Martin Lopez MD 10/11/2016 Hospital Luanne Purcell MD 10/11/2016 Surgery Ishan Seymour DO 10/11/2016 Hospital Karissa Aguilar MD 10/10/2016 Office visit Adriana Angel FLAME CUTTING MACHINE OPERATOR 09/29/2016 Office visit Martin Lopez MD 09/17/2016 Office visit Martin Lopez MD 09/07/2016 Office visit Martin Lopze MD 08/12/2016 Office visit Martin Lopez MD [...] 08/28/2015 Office visit Martin Lopez MD 08/02/2015 [facility] Ross Abraham MD 06/26/2015 Office visit Ross [...]
--- OUTSIDE RECORDS SUMMARY | 2018-01-03 20:18 | XMS REPORT ---
Author Ishan Corcoran [facility] Address [address] [place], [place] [id number] Care Team Providers Care Senior Php Software Developer Name Role Phone Ishan Seymour PCP Martin Lopez PreferredProvider Allergies and Adverse [...] MOUTH ONCE DAILY Dialysis on et Wed oxycodone 30 mg oral tablet 11/11/2017 take 1 tablet by oral route every 4 hours as needed promethazine-codeine 6.25-10 mg/5 mL oral syrup 11/17/2017 take 5 milliliters by oral route every 4 hours as needed Xanax 2 mg oral tablet 11/22/2017 03/22/2018 [...] needed approximately 1 hour before sexual activity Melly ODT 4 mg oral tablet,disintegrating 12/18/2016 06/10/2017 [...] HC BMI BSA BMI Percentile O2 Sat(%) 11/24/2017 4:08:00 PM 185 mmHg 93 mmHg [...] stage renal disease) Nov 24 2017 4:08PM Payers Insurance Name Company Name Plan Name Plan Number Policy Number Policy Group Number Start Date Medicare RHC Medicare RHC [id number] N/A [facility] - RHC [id number] N/A [facility] Plan [facility] Plan [id number] N/A [employer] [place] [employer] [place] [id number] N/A Medicare RHC Medicare RHC [id number] N/A Medicare Part A Medicare Part A [id number] N/A [employer] [place] [employer] [place] [id number] N/A Medicare Part A Medicare - Lab/Xray [id number] N/A Medicare RHC Medicare RHC [id number] N/A Medicare Part B Medicare [facility] [id number] N/A [employer] [place] [employer] [place] [id number] N/A Medicare RHC Medicare RHC [id number] Thursday, March 08, 2007 History of Encounters Visit Date Visit Type Provider 11/24/2017 Office visit Ishan Seymour DO 11/22/2017 Office visit Martin Lopez MD 11/17/2017 Office visit Martin Lopez MD 11/11/2017 Office visit Martin Lopez MD 10/29/2017 Office visit Martin Lopez MD 10/13/2017 Office visit Martin Lopez MD 10/10/2017 [facility] Abhilash Aguilar MD 09/28/2017 Office visit Martin Lopez [...] Karissa Aguilar MD 10/10/2016 Office visit Adriana ClariceMarshall Angel APRN 09/29/2016 Office visit Martin Lopez MD 09/17/2016 [...]
--- OUTSIDE RECORDS SUMMARY | 2018-01-03 20:19 | XMS REPORT ---
Author Ishan Corcoran [facility] Address [address] [place], [place] [address] Care Team Providers Care Work Manager Name Role Phone Ishan Seymour PCP Martin [...] TABLET BY MOUTH ONCE DAILY Dialysis on Wed OxyContin 60 mg oral tablet,oral only,ext.rel.12 hr 10/29/2017 11/28/2017 take 1 tablet (60 mg) by oral route every 12 hours for 30 days oxycodone 30 mg oral tablet 11/11/2017 take [...] take 1 tablet by oral route daily Name Start Date Expiration Date SIG Comments [...] Number Start Date Medicare RHC Medicare RHC [id number] [facility] - RHC [id number] N/A [facility] Health Plan [facility] Plan [id number] N/A [employer] [place] [employer] [place] [employer] [id number] N/A Medicare RHC Medicare RHC [id number] N/A Medicare Part A Medicare Part A [id number] N/A [employer] [place] [employer] [place] [id number] N/A Medicare Part A Medicare - Lab/Xray [id number] N/A Medicare RHC Medicare RHC [id number] N/A Medicare Part B Medicare [facility] [id number] N/A [employer] [place] [employer] [place] [id number] N/A Medicare RHC Medicare RHC [id number] Thursday, March 08, 2007 History of Encounters Visit Date Visit Type Provider 11/24/2017 Office visit Ishan Seymour DO 11/22/2017 Office visit Martin Lopez MD 11/17/2017 Office visit Martin Lopez MD 11/11/2017 Office visit Martin Lopez MD 10/29/2017 Office visit Martin Lopez MD 10/13/2017 Office visit Martin Lopez MD 09/28/2017 Office visit Martin Lopez MD [...] 03/15/2017 Office visit Martin Lopez MD 03/08/2017 [facility] Abhilash Aguilar MD 02/23/2017 Office visit Martin Lopez MD 02/22/2017 Office visit Ross Abraham MD 02/11/2017 Office visit Martin Lopez MD 02/01/2017 Office visit Martin Lopez MD 01/25/2017 Office visit Martin Lopez MD 12/22/2016 Office visit Martin Lopez MD 12/18/2016 Office visit Maverick Urbina DINKEY ENGINE FIRER 12/13/2016 Hospital Karissa Aguilar MD 12/09/2016 Office visit Martin Lopez MD 11/23/2016 Hospital Karissa Aguilar MD 11/19/2016 Office visit Martin Lopez MD 10/26/2016 Office visit Martin Lopez MD 10/13/2016 Office visit Martin Lopez MD 10/11/2016 Hospital Luanne Purcell MD 10/11/2016 Surgery Ishan Seymour DO 10/11/2016 [facility] Karissa Aguilar MD 10/10/2016 Office visit Adriana LMarshall Angel DINKEY ENGINE FIRER 09/29/2016 Office visit Martin Lopez MD 09/17/2016 Office visit Martin Lopez MD 09/07/2016 Office visit Martin Lopez MD 08/12/2016 Office visit Martin Lopez MD 07/20/2016 Office visit Martin Loepz MD 07/06/2016 Office visit Martin Lopez MD [...]
--- OUTSIDE RECORDS SUMMARY | 2018-01-03 20:21 | XMS REPORT ---
Author Author Martin Lopez [facility] Address [address] [place], [place] [id number] Care Team Providers Care Cartridge Loading Operator Name Role Phone Martin Lopez PCP Martin [...] QD three times a week after dialysis Norvasc 5 mg oral tablet take 1 tablet (5 mg) by oral route once daily lisinopril 40 mg oral tablet 06/21/2017 TAKE 1 TABLET BY MOUTH ONCE DAILY Dialysis on Wed OxyContin 60 mg oral tablet,oral only,ext.rel.12 hr 10/29/2017 11/28/2017 take 1 tablet (60 mg) by oral route every 12 hours for 30 days oxycodone 30 mg oral tablet 11/11/2017 take 1 tablet by oral route every 4 hours as needed Levaquin 250 mg oral tablet 11/11/2017 take 2 tablets (500 mg) today, then 1 tablet qod for 2 doses promethazine-codeine 6.25-10 mg/5 mL oral syrup 11/17/2017 take 5 milliliters by oral route every 4 hours as needed Xanax 2 mg oral tablet 11/22/2017 03/22/2018 take 1 tablet by oral route every 4 hours as needed for 30 days Name Start Date Expiration [...] per day with food for 30 days Zithromax Z-Humberto 250 mg oral tablet 06/02/2017 06/07/2017 take 2 tablets (500 mg ) by oral route once daily for 1 day then 1 tablet (250 mg) by oral route once daily for 4 days colchicine 0.6 mg oral tablet 09/10/2017 09/11/2017 take 1 tablet (0.6 mg) by oral route once daily for 1 day Discontinued Name Start Date Discontinued Date SIG [...] Renal failure Active Rotator cuff tear Active Vital Signs Date Time BP-Sys(mm[Hg] BP-Dahiana(mm[Hg]) HR(bpm) RR(rpm) Temp WT HT HC BMI BSA BMI Percentile O2 Sat(%) 11/22/2017 1:47:00 PM 156 mmHg 88 mmHg [...] rpm 96.8 F 175 lbs 68.5 in 26.22 kg/m2 1.9587 m Social History Name Description Comments Tobacco Former smoker 10 cigarettees daily. Stopped 2 months ago History of Procedures Date Ordered Description Order [...] right ulcer Colonic Polyps, Personal History of Hypertension Oct 09 2014 11:03AM Chronic pain [...] 2017 1:51PM Anxiety Nov 22 2017 1:51PM Payers Insurance Name Company Name Plan Name Plan Number Policy Number Policy Group Number Start Date Medicare RHC Medicare RHC [id number] N/A [facility] - RHC [id number] N/A [facility] [id number] N/A [employer] [id number] N/A Medicare RHC Medicare RHC [id number] N/A Medicare Part A Medicare Part A [id number] N/A [employer] [place] State [place] [employer] [place] State Plan [id number] N/A Medicare Part A Medicare - Lab/Xray [id number] N/A Medicare RHC Medicare RHC [id number] N/A Medicare Part B Medicare Of [place] [id number] N/A [employer] [place] [employer] [place] [id number] N/A Medicare RHC Medicare RHC [id number] Thursday, March 08, 2007 History of Encounters Visit Date Visit Type Provider 11/22/2017 Office visit Martin Lopez MD 11/17/2017 [...] Lopez MD 06/16/2017 Office visit Britta Garces AUTHOR'S AGENT 06/10/2017 Office visit Martin Lopez MD 05/14/2017 [...] Lopez MD 12/18/2016 Office visit Maverick Urbina AUTHOR'S AGENT 12/13/2016 Hospital Karissa Aguilar MD 12/09/2016 Office visit Martin Lopez MD 11/23/2016 [facility] Karissa Aguilar MD 11/19/2016 Office visit Martin Lopez MD 10/26/2016 Office visit Martin Lopez MD 10/13/2016 Office visit Martin Lopez MD 10/11/2016 Hospital Luanne Purcell MD 10/11/2016 Surgery Ishan Seymour DO 10/11/2016 Hospital Karissa Aguilar MD 10/10/2016 Office visit Adriana Angel MARIAN 09/29/2016 Office visit Martin Lopez MD 09/17/2016 [...]
[2018-01-03 20:22] VITALS: BP 192/104
--- OUTSIDE RECORDS SUMMARY | 2018-01-03 20:22 | XMS REPORT ---
Author Author Martin Lopez [facility] Address [address] [place], [place] [id number] Care Team Providers Care Home Visits Nurse Name Role Phone Martin Lopez PCP Martin [...] BY MOUTH ONCE DAILY Dialysis on Wed Xanax 2 mg oral tablet 09/10/2017 01/08/2018 take 1 tablet by oral route every 4 hours as needed for 30 days OxyContin 60 mg oral tablet,oral only,ext.rel.12 hr [...] HC BMI BSA BMI Percentile O2 Sat(%) 11/17/2017 8:41:00 AM 138 mmHg 86 mmHg [...] 12:00 AM CHEST X-RAY 2VW FRONTAL&LATL Returned Results Summary Not available. History Of Immunizations [...] Poor intravenous access Nov 17 2017 8:47AM Payers Insurance Name Company Name Plan Name Plan Number Policy Number Policy Group Number Start Date Medicare RHC Medicare RHC [id number] N/A [facility] - RHC [id number] N/A [facility] Plan [id number] N/A [employer] [place] [employer] [employer] [place] [id number] N/A Medicare RHC Medicare RHC [id number] N/A Medicare Part A Medicare Part A [id number] N/A [employer] [place] [employer] [place] [id number] N/A Medicare Part A Medicare - Lab/Xray [id number] N/A Medicare RHC Medicare RHC [id number] N/A Medicare Part B Medicare Of [place] [id number] N/A [employer] [place] State Plan [employer] [place] State Plan [id number] N/A Medicare RHC Medicare RHC [id number] Thursday, March 08, 2007 History of Encounters Visit Date Visit Type Provider 11/17/2017 Office visit Martin Lopez MD 11/11/2017 [...] Lopez MD 06/16/2017 Office visit Britta Garces COMPUTER ARTIST 06/10/2017 Office visit Martin Lopez MD 05/14/2017 [...] Aguilar MD 10/10/2016 Office visit Adriana Angel COMPUTER ARTIST 09/29/2016 Office visit Martin Lopez MD 09/17/2016 [...] 08/28/2015 Office visit Martin Lopez MD 08/02/2015 [facility] Ross Abraham MD 06/26/2015 Office visit Ross [...]
--- OUTSIDE RECORDS SUMMARY | 2018-01-03 20:23 | XMS REPORT ---
Author Author Martin Lopez [facility] Address [address] [place], [place] [address] Care Team Providers Care Immigration Judge Name Role Phone Martin Lopez PCP Martin Lopez PreferredProvider Allergies and Adverse Reactions Name Reaction Notes NO KNOWN DRUG ALLERGIES Plan of Treatment Planned Activity Comments Planned Date Planned Time Plan/Goal Sleep monitoring 03/05/2015 12:00 AM URINALYSIS ROUTINE [...] et Wed Xanax 2 mg oral tablet 09/10/2017 [...] then 1 tablet qod for 2 doses Name Start Date Expiration Date SIG Comments [...] HC BMI BSA BMI Percentile O2 Sat(%) 11/11/2017 9:42:00 AM 148 mmHg 90 mmHg [...] 9:44AM Chronic pain Nov 11 2017 9:44AM Payers Insurance Name Company Name Plan Name Plan Number Policy Number Policy Group Number Start Date Medicare RHC Medicare RHC [id number] N/A [facility] Plan [facility] - [facility] [id number] N/A [facility] [id number] N/A [employer] [place] [employer] [place] [id number] N/A Medicare RHC Medicare RHC [id number] N/A Medicare Part A Medicare Part A [id number] N/A [employer] [place] [employer] [place] [id number] N/A Medicare Part A Medicare - Lab/Xray [id number] N/A Medicare RHC Medicare RHC [id number] N/A Medicare Part B Medicare Of [place] [id number] N/[place] [employer] [place] [employer] [place] [id number] N/A Medicare RHC Medicare RHC [id number] Thursday, March 08, 2007 History of Encounters Visit Date Visit Type Provider 11/11/2017 Office visit Martin Lopez MD 10/29/2017 [...] Lopez MD 06/16/2017 Office visit Britta Garces [facility] 06/10/2017 Office visit Martin Lopez MD 05/14/2017 [...] MD 10/11/2016 Surgery Ishan Seymour DO 10/11/2016 [facility] Karissa Aguilar MD 10/10/2016 Office visit Adriana nAgel [facility] 09/29/2016 Office visit Martin Lopez MD 09/17/2016 [...] 08/28/2015 Office visit Martin Lopez MD 08/02/2015 [facility] Ross Abraham MD 06/26/2015 Office visit [...]
--- OUTSIDE RECORDS SUMMARY | 2018-01-03 20:24 | XMS REPORT ---
Author Author Martin Lopez [facility] Address [address] [place], [place] [id number] Care Team Providers Care Or Nurse Manager [...] 4 hours as needed for 30 days morphine 15 mg oral tablet extended release 10/13/2017 11/12/2017 take 1 tablet (15 mg) by oral route every 12 hours for 30 days OxyContin 60 mg oral [...] HC BMI BSA BMI Percentile O2 Sat(%) 10/29/2017 10:33:00 AM 150 mmHg 82 mmHg [...] 9:57AM Chronic pain Oct 29 2017 10:38AM Payers Insurance Name Company Name Plan Name Plan Number Policy Number Policy Group Number Start Date Medicare RHC Medicare RHC [id number] N/A [facility] - RHC [id number] N/A [facility] Plan [id number] N/A [employer] [place] [employer] [place] [id number] N/A Medicare RHC Medicare RHC [id number] N/A Medicare Part A Medicare Part A [id number] N/A [employer] [place] [employer] [place] [id number] N/A Medicare Part A Medicare - Lab/Xray [id number] N/A Medicare RHC Medicare RHC [id number] N/A Medicare Part B Medicare Of [place] [id number] N/A [employer] [place] [employer] [place] [id number] N/A Medicare RHC Medicare RHC [id number] Thursday, March 08, 2007 History of Encounters Visit Date Visit Type Provider 10/29/2017 Office visit Martin Lopez MD 10/13/2017 [...] Lopez MD 12/18/2016 Office visit Maverick Urbina HVAC MAINTENANCE TECHNICIAN 12/13/2016 Hospital Karissa Aguilar MD 12/09/2016 Office visit Martin Lopez MD 11/23/2016 Hospital Karissa Aguilar MD 11/19/2016 Office visit Martin Lopez MD 10/26/2016 Office visit Martin Lopez MD 10/13/2016 Office visit Martin Lopez MD 10/11/2016 Hospital Luanne Purcell MD 10/11/2016 Surgery Ishan Seymour DO 10/11/2016 Hospital Karissa Aguilar MD 10/10/2016 Office visit Adriana Angel HVAC MAINTENANCE TECHNICIAN 09/29/2016 Office visit Martin Lopez MD 09/17/2016 [...]
--- OUTSIDE RECORDS SUMMARY | 2018-01-03 20:26 | XMS REPORT ---
Author Author Martin Lopez [facility] Address [address] [place], [place] [address] Care Team Providers Care Elementary Special Education Teacher Name Role Phone Martin Lopez PCP Martin [...] 30 days oxycodone 30 mg oral tablet 10/13/2017 take 1 tablet by oral route every [...] 2017 9:57AM Anxiety Oct 13 2017 9:57AM Payers Insurance Name Company Name Plan Name Plan Number Policy Number Policy Group Number Start Date Medicare RHC Medicare RHC [id number] N/A [facility] - RHC [id number] N/A [facility] Plan [id number] N/A [employer] [place] [employer] [place] [id number] N/A Medicare RHC Medicare RHC [id number] N/A Medicare Part A Medicare Part A [id number] N/A [employer] [place] [employer] [place] [id number] N/A Medicare Part A Medicare - Lab/Xray [id number] N/A Medicare RHC Medicare RHC [id number] N/A Medicare Part B Medicare Of [place] [id number] N/[place] [employer] [place] [employer] [place] [id number] N/A Medicare RHC Medicare RHC [id number] Thursday, March 08, 2007 History of Encounters [...] Lopez MD 12/18/2016 Office visit Maverick Urbina SALES AGENT 12/13/2016 Hospital Karissa Aguilar MD 12/09/2016 Office visit Martin Lopez MD 11/23/2016 Hospital Karissa Aguilar MD 11/19/2016 Office visit Martin Lopez MD 10/26/2016 Office visit Martin Lopez MD 10/13/2016 Office visit Martin Lopez MD 10/11/2016 Hospital Luanne Purcell MD 10/11/2016 Surgery Ishan Seymour DO 10/11/2016 Hospital Karissa Aguilar MD 10/10/2016 Office visit [place] SALES AGENT 09/29/2016 Office visit Martin Lopez MD 09/17/2016 [...]
--- OUTSIDE RECORDS SUMMARY | 2018-01-03 20:27 | XMS REPORT ---
Author Author Martin Lopez [facility] Address [address] [place], [place] [id number] Care Team Providers Care Pharmacy Intake Technician Name Role Phone Martin Lopez PCP Martin [...] HC BMI BSA BMI Percentile O2 Sat(%) 10/13/2017 9:52:00 AM 154 mmHg 82 mmHg [...] 10:03AM Chronic pain Sep 28 2017 10:03AM Payers Insurance Name Company Name Plan Name Plan Number Policy Number Policy Group Number Start Date Medicare RHC Medicare RHC [id number] N/A [facility] - RHC [id number] N/A [facility] Plan [facility] Plan [id number] N/A [employer] [place] [employer] [place] [id number] N/A Medicare RHC Medicare RHC [id number] N/A Medicare Part A Medicare Part A [id number] N/A [employer] [place] [employer] [place] [id number] N/A Medicare Part A Medicare - Lab/Xray [id number] N/A Medicare RHC Medicare RHC [id number] N/A Medicare Part B Medicare [facility] [id number] N/[place] [employer] [place] [employer] [place] [id number] N/A Medicare RHC Medicare RHC [id number] Thursday, March 08, 2007 History of Encounters Visit Date Visit Type Provider 10/13/2017 Office visit Martin Lopez MD 09/28/2017 [...] 03/15/2017 Office visit Martin Lopez MD 03/08/2017 [facility] Karissa Aguilar MD 02/23/2017 Office visit Martin Lopez MD 02/22/2017 Office visit Ross Abraham MD 02/11/2017 Office visit Martin Lopez MD 02/01/2017 Office visit Martin Lopez MD 01/25/2017 Office visit Martin Lopez MD 12/22/2016 Office visit Martin Lopez MD 12/18/2016 Office visit Maverick Urbina JEWISH THOUGHT PROFESSOR 12/13/2016 Hospital Karissa Aguilar MD 12/09/2016 Office visit Martin Lopez MD 11/23/2016 Hospital Karissa Aguilar MD 11/19/2016 Office visit Martin Lopez MD 10/26/2016 Office visit Martin Lopez MD 10/13/2016 Office visit Martin Lopez MD 10/11/2016 Hospital Luanne Purcell MD 10/11/2016 Surgery Ishan Seymour DO 10/11/2016 Hospital Karissa Aguilar MD 10/10/2016 Office visit Adriana Angel JEWISH THOUGHT PROFESSOR 09/29/2016 Office visit Martin Lopez MD 09/17/2016 [...]
--- OUTSIDE RECORDS SUMMARY | 2018-01-03 20:28 | XMS REPORT ---
Author Author Martin Lopez [facility] Address [address] [place], [place] [address] Care Team Providers Care Hog Ribber Name Role Phone Martin Lopez PCP Martin [...] 4 hours as needed for 30 days oxycodone 30 mg oral tablet 09/16/2017 take 1 tablet by oral route every 4 hours as needed morphine 30 mg oral tablet extended release 09/22/2017 10/22/2017 take 1 tablet (30 mg) by oral route every 12 hours [...] HC BMI BSA BMI Percentile O2 Sat(%) 09/22/2017 9:31:00 AM 146 mmHg 94 mmHg [...] 2017 9:36AM Hernia Sep 22 2017 9:36AM Payers Insurance Name Company Name Plan Name Plan Number Policy Number Policy Group Number Start Date Medicare RHC Medicare [facility] [id number] N/A [facility] [id number] N/A [facility] [id number] N/A [employer] [place] [employer] [place] [id number] N/A Medicare Part A Medicare Part A [id number] N/A [employer] [place] [employer] [place] [id number] N/A Medicare Part A Medicare - Lab/Xray [id number] N/A Medicare RHC Medicare RHC [id number] N/A Medicare Part B Medicare Of [place] [id number] N/[place] [employer] [place] [employer] [place] [id number] N/A Medicare RHC Medicare RHC [id number] Thursday, March 08, 2007 History of Encounters Visit Date Visit Type Provider 09/22/2017 Office visit Martin Lopez MD 09/10/2017 Office visit Martin Lopez MD 08/18/2017 Office visit Martin Lopez MD 07/23/2017 Office visit Martin Lopez MD 07/05/2017 Office visit Martin Lopez MD 06/28/2017 Office visit Martin Lopez MD 06/24/2017 Office visit Martin Lopez MD 06/16/2017 Office visit Britta Garces AIR QUALITY CONSULTANT 06/10/2017 Office visit Martin Lopez MD 05/14/2017 [...] Lopez MD 12/18/2016 Office visit Maverick Urbina AIR QUALITY CONSULTANT 12/13/2016 Hospital Karissa Aguilar MD 12/09/2016 Office visit Martin Lopez MD 11/23/2016 Hospital Karissa Aguilar MD 11/19/2016 Office visit Martin Lopez MD 10/26/2016 Office visit Martin Lopez MD 10/13/2016 Office visit Martin Lopez MD 10/11/2016 Hospital Luanne Purcell MD 10/11/2016 Surgery Ishan Seymour DO 10/11/2016 Hospital Karissa Aguilar MD 10/10/2016 Office visit Adriana Angel AIR QUALITY CONSULTANT 09/29/2016 Office visit Martin Lopez MD [...] 08/28/2015 Office visit Martin Lopez MD 08/02/2015 [facility] Ross Abraham MD 06/26/2015 Office visit Ross [...]
--- OUTSIDE RECORDS SUMMARY | 2018-01-03 20:29 | XMS REPORT ---
Author Author Martin oLpez [facility] Address [address] [place], [place] [address] Care Team Providers Care Health And Safety Inspector Name Role Phone Martin Lopez PCP Unavailable Martin Lopez PreferredProvider Unavailable Allergies and Adverse Reactions Name Reaction Notes NO KNOWN DRUG ALLERGIES Plan of Treatment Planned Activity Comments Planned Date Planned Time Plan/Goal Sleep monitoring 03/05/2015 12:00 AM URINALYSIS ROUTINE C&S IF IND 01/21/2016 12:00 AM Medications Active Name Start Date Estimated Completion Date SIG Comments ProAir HFA 90 mcg/actuation inhalation HFA aerosol inhaler 08/28/2015 inhale 2 puffs (180 mcg) by inhalation route at least 15 minutes before exertion Zofran (as hydrochloride) 4 mg oral tablet 11/22/2015 take 1 tablet every 8hrs prn nausea promethazine-codeine 6.25-10 mg/5 mL oral syrup 02/06/2016 take 5 milliliters by oral route every 6 hours as needed, not to exceed 30 mL in 24 hours Ativan 2 mg oral tablet 03/16/2016 take 1 tablet by oral route 4 times a day as needed oxycodone 30 mg oral tablet 03/16/2016 take 1 tablet (30 mg) by oral route every 6 hours Name Start Date Expiration Date SIG Comments amlodipine 5 mg oral tablet 11/06/2014 06/04/2015 take 1 tablet (5 mg) by oral route once daily for 30 days carvedilol 25 mg oral tablet 11/06/2014 11/01/2015 take 1 tablet (25 mg) by oral route 2 times per for 30 days lisinopril 40 mg oral tablet 11/06/2014 11/01/2015 take 1 tablet (40 mg) by oral route once daily for 30 days Zithromax Z-Humberto 250 mg oral tablet 02/06/2016 02/16/2016 take 2 tablets (500 mg) by oral route once daily for 1 day then 1 tablet (250 mg) by oral route once daily for 4 days prednisone 20 mg oral tablet 02/06/2016 02/13/2016 take 1 tablet by oral route daily for 7 days Problem List Description Status Onset Hypertension Active Renal failure Active Rotator cuff tear Active Vital Signs Date Time BP-Sys(mm[Hg] BP-Dahiana(mm[Hg]) HR(bpm) RR(rpm) Temp WT HT HC BMI BSA BMI Percentile O2 Sat(%) 02/06/2016 10:15:00 AM 152 mmHg 84 mmHg 82 bpm 18 rpm 97.2 F 207 lbs 68.5 in 31.02 kg/m2 2.13 m2 97 % 12/31/2015 10:01:00 AM 138 mmHg 82 mmHg 72 bpm 20 rpm 96.4 F 201 lbs 68.5 in 30.1171 kg/m 2.0991 m 10/28/2015 3:20:00 PM 158 mmHg 88 mmHg 86 bpm 22 rpm 97.7 F 209.062 lbs 68.5 in 31.33 kg/m2 2.14 m2 100 % 10/08/2015 10:20:00 AM 164 mmHg 102 mmHg 81 bpm 18 rpm 96.3 F 199.5 lbs 68.5 in 29.8924 kg/m 2.0913 m 98 % 08/28/2015 9:27:00 AM 132 mmHg 82 mmHg 82 bpm 18 rpm 97.3 F 203 lbs 68.5 in 30.42 kg/m2 2.11 m2 100 % 06/21/2015 9:28:00 AM 122 mmHg 78 mmHg 88 bpm 16 rpm 97.9 F 196 lbs 68.5 in 29.3679 kg/m 2.0729 m 99 % 05/16/2015 9:33:00 AM 118 mmHg 82 mmHg 87 bpm 18 rpm 97.2 F 189 lbs 68.5 in 28.32 kg/m2 2.04 m2 99 % 03/05/2015 9:34:00 AM 138 mmHg 86 mmHg 78 bpm 18 rpm 97.9 F 184 lbs 68.5 in 27.5699 kg/m 2.0084 m 99 % 02/04/2015 8:23:00 AM 128 mmHg 82 mmHg 68 bpm 18 rpm 97.3 F 181 lbs 68.5 in 27.12 kg/m2 1.99 m2 97 % 01/08/2015 9:02:00 AM 118 mmHg 72 mmHg 78 bpm 18 rpm 97.6 F 170 lbs 68.5 in 25.4722 kg/m 1.9305 m 11/29/2014 3:14:00 PM 140 mmHg 92 mmHg 77 bpm 18 rpm 99.1 F 172.125 lbs 68.5 in 25.79 kg/m2 1.94 m2 99 % 11/06/2014 9:55:00 AM 184 mmHg 108 mmHg 98 bpm 72 rpm 98.4 F 178 lbs 68.5 in 26.6709 kg/m 1.9754 m 10/09/2014 10:48:00 AM 124 mmHg 88 mmHg 72 bpm 18 rpm 96.8 F 175 lbs 68.5 in 26.22 kg/m2 1.96 m2 Social History Name Description Comments Tobacco Current every day smoker 10 cigarettees daily History of Procedures Date Ordered Description Order Status 01/08/2015 12:00 AM CHEST X-RAY 2VW FRONTAL&LATL Reviewed Results Summary Not available. History Of [...] 11:21AM Renal failure Mar 16 2016 11:21AM Payers Insurance Name Company Name Plan Name Plan Number Policy Number Policy Group Number Start Date Medicare Part A Medicare RHC [id number] [facility] Plan - RHC [id number] N/A Medicare Part A Medicare Part A [id number] N/A [employer] [place] [employer] [place] [id number] N/A Medicare Part A Medicare - Lab/Xray [id number] N/A Medicare Part A Medicare RHC [id number] N/A Medicare Part B Medicare Of [place] [id number] N/[place] [employer] [place] [employer] [place] [id number] N/A History of Encounters Visit Date Visit Type Provider 03/16/2016 Office visit Martin Lopez MD 02/06/2016 Office visit Martin Lopez MD 12/31/2015 Office visit Martin Lopez MD 10/28/2015 Office visit Martin Lopez MD 10/08/2015 Office visit Martin Lopez MD 08/28/2015 Office visit Martin Lopez MD 08/02/2015 [facility] Ross Abraham MD 06/26/2015 Office [...]
--- OUTSIDE RECORDS SUMMARY | 2018-01-03 20:29 | XMS REPORT ---
Author Author Martin Lopez [facility] Address [address] [place], [place] [address] Care Team Providers Care Histology Supervisor Name Role Phone Martin Lopez PCP Unavailable Allergies and Adverse Reactions Name Reaction [...] take 1 tablet every 8hrs prn nausea oxycodone 15 mg oral tablet 12/31/2015 take 1-2 tablets by oral route every 4 hours as needed Xanax 1 mg oral tablet 12/31/2015 05/29/2016 take 1 tablet by oral route 4 times a day for 30 days Name Start Date Expiration [...] oral route once daily for 30 days Problem List Description Status Onset Hypertension Active Renal failure Active Rotator cuff tear Active Vital Signs Date Time BP-Sys(mm[Hg] BP-Dahiana(mm[Hg]) HR(bpm) RR(rpm) Temp WT HT HC BMI BSA BMI Percentile O2 Sat(%) 12/31/2015 10:01:00 AM 138 mmHg 82 mmHg [...] m Social History Name Description Comments Tobacco Current [...] 2015 10:08AM Dysuria Jan 21 2016 11:46AM Payers Insurance Name Company Name Plan Name Plan Number Policy Number Policy Group Number Start Date Medicare Part A Medicare RHC [id number] N/A [facility] [id number] N/A Medicare Part A Medicare Part A [id number] N/A [facility] [place] State [facility] State [facility] [id number] N/A Medicare Part A Medicare - Lab/Xray [id number] N/A Medicare Part A Medicare RHC [id number] N/A Medicare Part B Medicare Of [place] [id number] N/A [facility] [id number] N/A History of Encounters Visit Date Visit Type Provider 12/31/2015 Office visit Martin Lopez MD 10/28/2015 Office visit Martin Lopez MD 10/08/2015 Office visit Martin Lopez MD 08/28/2015 Office visit Martin Lopez MD 08/02/2015 [facility] Ross Abraham MD 06/26/2015 Office visit Ross Abraham MD 06/21/2015 Office visit Martin Lopez MD 05/16/2015 Office visit Martin Lopez MD 03/05/2015 Office visit Martin Lopez MD 02/04/2015 Office visit aMrtin Lopez MD 01/08/2015 Office visit Martin Lopez MD 11/29/2014 Office visit Martin Lopez MD 11/06/2014 Office visit Martin Lopez MD 10/09/2014 Office visit Martin Lopez MD
--- OUTSIDE RECORDS SUMMARY | 2018-01-03 20:30 | XMS REPORT ---
Author Author Martin Lopez [facility] Address [address] [place], [place] [address] Care Team Providers Care Director Compliance Name Role Phone Martin Lopez PCP Unavailable Martin Lopez PreferredProvider Unavailable Allergies and Adverse Reactions Name Reaction Notes NO KNOWN DRUG ALLERGIES Plan of Treatment Planned Activity Comments Planned Date Planned Time Plan/Goal Sleep monitoring 03/05/2015 12:00 AM URINALYSIS ROUTINE C&S IF IND 01/21/2016 12:00 AM Hip Complete Min 2Views - Main 07/20/2016 12:00 AM Medications Active Name Start Date Estimated Completion Date SIG Comments lisinopril 40 mg oral tablet 05/06/2016 05/01/2017 take 1 tablet (40 mg) by oral route once daily for 30 days CPAP 07/06/2016 11 cm H20 Xanax 1 mg oral tablet 07/06/2016 take 1 tablet by oral route 3 times a day as needed ProAir HFA 90 mcg/actuation inhalation HFA aerosol inhaler 07/06/2016 inhale 2 puffs (180 mcg) by inhalation route at least 15 minutes before exertion promethazine-codeine 6.25-10 mg/5 mL oral syrup 07/06/2016 take 5 milliliters by oral route every 6 hours as needed, not to exceed 30 mL in 24 hours oxycodone 30 mg oral tablet 07/20/2016 take 1 tablet (30 mg) by oral route every 6 hours Viagra 100 mg oral tablet 07/20/2016 take 1 tablet (100 mg) by oral route once daily as needed approximately 1 hour before sexual activity Name Start Date Expiration Date SIG Comments [...] by oral route daily for 7 days Discontinued Name Start Date Discontinued Date SIG Comments Zofran (as hydrochloride) 4 mg oral tablet 11/22/2015 07/06/2016 take 1 tablet every 8hrs prn nausea Problem List Description Status Onset Hypertension Active Renal failure Active Rotator cuff tear Active Vital Signs Date Time BP-Sys(mm[Hg] BP-Dahiana(mm[Hg]) HR(bpm) RR(rpm) Temp WT HT HC BMI BSA BMI Percentile O2 Sat(%) 07/20/2016 1:50:00 PM 158 mmHg 90 mmHg [...] 2016 1:51PM Urticaria Jul 20 2016 1:51PM Payers Insurance Name Company Name Plan Name Plan Number Policy Number Policy Group Number Start Date Medicare RHC Medicare RHC [id number] Thursday, 2007 [facility] - RHC [id number] N/A Medicare Part A Medicare Part A [id number] N/A [employer] [place] [employer] [place] [id number] N/A Medicare Part A Medicare - Lab/Xray [id number] N/A Medicare RHC Medicare RHC [id number] N/A Medicare Part B Medicare [facility] [id number] N/A [employer] [place] [employer] [place] [id number] N/A History of Encounters Visit Date Visit Type Provider 07/20/2016 Office visit Martin Lopez MD 07/06/2016 [...]
--- OUTSIDE RECORDS SUMMARY | 2018-01-03 20:31 | XMS REPORT ---
Author Author Martin Lopez [facility] Address [address] [place], [place] [id number] Care Team Providers Care Synthetic Cloth Binding Cutter Name Role Phone Martin Lopez PCP Martin Lopez PreferredProvider Allergies and Adverse Reactions Name Reaction Notes NO KNOWN DRUG ALLERGIES Plan of Treatment Planned Activity Comments Planned Date Planned Time Plan/Goal Sleep monitoring 03/05/2015 12:00 AM URINALYSIS ROUTINE C&S IF IND 01/21/2016 12:00 AM Hip Complete Min 2Views - Main 07/20/2016 12:[address] CHEST W/CONTRAST 06/28/2017 12:00 AM Medications Active Name Start Date Estimated Completion Date SIG Comments CPAP 07/06/2016 11 cm H20 ProAir HFA 90 mcg/actuation inhalation HFA aerosol inhaler 07/06/2016 inhale 2 puffs (180 mcg) by inhalation route at least 15 minutes before exertion pantoprazole 40 mg oral tablet,delayed release (DR/EC) 02/22/2017 take 1 tablet by oral route QD three times a week after dialysis Coreg 25 mg oral tablet 02/23/2017 07/23/2017 take 1 tablet (25 mg) by oral route 2 times per day with food for 30 days Norvasc 5 mg oral tablet take 1 tablet (5 mg) by oral route once daily oxycodone 30 mg oral tablet 06/10/2017 take 1 tablet by oral route every 4 hours as needed lisinopril 40 mg oral tablet 06/21/2017 TAKE 1 TABLET BY MOUTH ONCE DAILY Xanax 2 mg oral tablet 06/24/2017 10/22/2017 take 1 tablet by oral route every [...] 12/01/2016 take as directed for 6 days Zithromax Z-Humberto 250 mg oral tablet 06/02/2017 06/07/2017 take 2 tablets (500 mg ) by oral route once daily for 1 day then 1 tablet (250 mg) by oral route once daily for 4 days Discontinued Name Start Date Discontinued Date [...] to exceed 30 mL in 24 hours Problem List Description Status Onset Hypertension Active Renal failure Active Rotator cuff tear Active Vital Signs Date Time BP-Sys(mm[Hg] BP-Dahiana(mm[Hg]) HR(bpm) RR(rpm) Temp WT HT HC BMI BSA BMI Percentile O2 Sat(%) 06/28/2017 1:59:00 PM 164 mmHg 100 mmHg [...] AM UPR/L XTREMITY ART 2 LEVELS Returned 12/18/2016 12:00 AM Zofran 4mg Injection Reviewed [...] 2017 2:02PM Dyspnea Jun 28 2017 2:02PM Payers Insurance Name Company Name Plan Name Plan Number Policy Number Policy Group Number Start Date Medicare RHC Medicare RHC [id number] Thursday, 2007 [facility] [id number] N/A [facility] [id number] N/A [employer] [place] [id number] N/A Medicare Part A Medicare Part A [id number] N/A [employer] [place] [employer] [place] [id number] N/A Medicare Part A Medicare - Lab/Xray [id number] N/A Medicare RHC Medicare RHC [id number] N/A Medicare Part B Medicare Of [place] [id number] N/A [employer] [place] State Plan Amerigroup [facility] Plan [id number] N/A History of Encounters Visit Date Visit Type Provider 06/28/2017 Office visit Martin Lopez MD 06/24/2017 Office visit Martin Lopez MD 06/16/2017 Office visit Britta Garces KINESEOLOGIST 06/10/2017 Office visit Martin Lopez MD 05/14/2017 [...] Lopez MD 12/18/2016 Office visit Maverick Urbina KINESEOLOGIST 12/13/2016 Hospital Karissa Aguilar MD 12/09/2016 Office visit Martin Lopez MD 11/23/2016 Hospital Karissa Aguilar MD 11/19/2016 Office visit Martin Lopez MD 10/26/2016 Office visit Martin Lopez MD 10/13/2016 Office visit Martin Lopez MD 10/11/2016 Hospital Luanne Purcell MD 10/11/2016 Surgery Ishan Seymour DO 10/11/2016 Hospital Karissa Aguilar MD 10/10/2016 Office visit Adriana Angel KINESEOLOGIST 09/29/2016 Office visit Martin Lopez MD 09/17/2016 [...] 08/28/2015 Office visit Martin Lopez MD 08/02/2015 [facility] Ross Abraham MD 06/26/2015 Office visit [...]
--- OUTSIDE RECORDS SUMMARY | 2018-01-03 20:31 | XMS REPORT ---
Author Author Martin Lopez [facility] Address [address] [place], [place] [id number] Care Team Providers Care Police Cadet Name Role Phone Martin Lopez PCP Unavailable Allergies and Adverse Reactions Name Reaction Notes NO KNOWN DRUG ALLERGIES Plan of Treatment Planned Activity Comments Planned Date Planned Time Plan/Goal POLYSOM 6/> YRS 4/> SUGEY 03/05/2015 12:00 AM Medications Active Name Start Date Estimated Completion Date SIG Comments carvedilol 25 mg oral tablet 11/06/2014 11/01/2015 take 1 tablet (25 mg) by oral route 2 times per for 30 days lisinopril 40 mg oral tablet 11/06/2014 11/01/2015 take 1 tablet (40 mg) by oral route once daily for 30 days oxycodone 10 mg oral tablet 08/28/2015 take 1 tablet by oral route 4 times a day Xanax 1 mg oral tablet 08/28/2015 01/25/2016 take 1 tablet (1 mg) by oral route 3 times per day for 30 days ProAir HFA 90 mcg/actuation inhalation HFA aerosol inhaler 08/28/2015 inhale 2 puffs (180 mcg) by inhalation route at least 15 minutes before exertion Name Start Date Expiration Date SIG Comments amlodipine 5 mg oral tablet 11/06/2014 06/04/2015 take 1 tablet (5 mg) by oral route once daily for 30 days Problem List Description Status Onset Hypertension Active Renal failure Active Rotator cuff tear Active Vital Signs Date Time BP-Sys(mm[Hg] BP-Dahiana(mm[Hg]) HR(bpm) RR(rpm) Temp WT HT HC BMI BSA BMI Percentile O2 Sat(%) 08/28/2015 9:27:00 AM 132 mmHg 82 mmHg [...] 2015 9:35AM Anxiety Aug 28 2015 9:35AM Payers Insurance Name Company Name Plan Name Plan Number Policy Number Policy Group Number Start Date Medicare Part A Medicare RHC [id number] N/A [employer] [place] [employer] [place] [id number] N/A Medicare Part A Medicare - Lab/Xray [id number] N/A Medicare Part A Medicare RHC [id number] N/A Medicare Part B Medicare Of [place] [id number] N/A [employer] [place] [employer] [place] [id number] N/A Medicare Part A Medicare Part A [id number] N/A History of Encounters Visit Date Visit Type Provider 08/28/2015 Office visit Martin Lopez MD 08/02/2015 [facility] Ross Abraham MD 06/26/2015 Office visit Ross [...]
--- OUTSIDE RECORDS SUMMARY | 2018-01-03 20:32 | XMS REPORT ---
Author Author Martin Lopez [facility] Address [address] [place], [place] [id number] Care Team Providers Care Residential Program Manager Name Role Phone Martin Lopez PCP [...] 4 hours as needed for 30 days Dialysis on Wed amoxicillin 500 mg oral tablet 07/14/2017 take 1 tablet daily for 7 days. On days of dialysis take medication after dialysis oxycodone 30 mg oral tablet 07/23/2017 take 1 tablet by oral route every [...] HC BMI BSA BMI Percentile O2 Sat(%) 07/23/2017 9:00:00 AM 158 mmHg 84 mmHg [...] 9:05AM Renal failure Jul 23 2017 9:05AM Payers Insurance Name Company Name Plan Name Plan Number Policy Number Policy Group Number Start Date Medicare RHC Medicare RHC [id number] Thursday, 2007 [facility] - RHC [id number] N/A [facility] [id number] N/A [employer] [place] [employer] [place] [id number] N/A Medicare Part A Medicare Part A [id number] N/A [employer] [place] [employer] [place] [id number] N/A Medicare Part A Medicare - Lab/Xray [id number] N/A Medicare RHC Medicare RHC [id number] N/A Medicare Part B Medicare Of [place] [id number] N/A [employer] [place] State Plan Amerigroup [place] State Plan [id number] N/A History of Encounters Visit Date Visit Type Provider 07/23/2017 Office visit Martin Lopez MD 07/05/2017 Office visit Martin Lopez MD 06/28/2017 Office visit Martin Lopez MD 06/24/2017 Office visit Martin Lopez MD 06/16/2017 Office visit Britta Garces COOK VACUUM KETTLE 06/10/2017 Office visit Martin Lopez MD 05/14/2017 Office visit Martin Lopez MD 05/03/2017 Office visit Martin Lopez MD 04/12/2017 Office visit Martin Lopez MD 04/08/2017 Office visit Martin Lopez MD 03/15/2017 Office visit Martin Lopez MD 03/08/2017 [facility] Karissa Aguilar MD 02/23/2017 Office visit Martin Lopez MD 02/22/2017 Office visit Ross Abraham MD 02/11/2017 Office visit Martin Lopez MD 02/01/2017 Office visit Martin Lopez MD 01/25/2017 Office visit Martin Lopez MD 12/22/2016 Office visit Martin Lopez MD 12/18/2016 Office visit Maverick Urbina COOK VACUUM KETTLE 12/13/2016 Hospital Karissa Aguilar MD 12/09/2016 Office visit Martin Lopez MD 11/23/2016 Hospital Karissa Aguilar MD 11/19/2016 Office visit Martin Lopez MD 10/26/2016 Office visit Martin Lopez MD 10/13/2016 Office visit Martin Lopez MD 10/11/2016 Hospital Luanne Purcell MD 10/11/2016 Surgery Ishan eSymour DO 10/11/2016 Hospital Karissa Aguilar MD 10/10/2016 Office visit Adriana Angel COOK VACUUM KETTLE 09/29/2016 Office visit Martin Lopez MD 09/17/2016 [...]
--- OUTSIDE RECORDS SUMMARY | 2018-01-03 20:33 | XMS REPORT ---
Author Author Britta Garces [facility] Address [address] [place], [place] [address] Care Team Providers Care Manufacturer Name Role Phone Britta Garces PCP Martin Lopez PreferredProvider Allergies and Adverse [...] (5 mg) by oral route once daily Xanax 2 mg oral tablet 05/03/2017 08/31/2017 take 1 tablet by oral route 4 times a day as needed for 30 days oxycodone 30 mg oral tablet 06/10/2017 take [...] by oral route daily for 7 days lisinopril 40 mg oral tablet 05/06/2016 05/01/2017 take 1 tablet (40 mg) by oral route once daily for 30 days clindamycin HCl 150 mg oral capsule [...] HC BMI BSA BMI Percentile O2 Sat(%) 06/16/2017 3:05:00 PM 162 mmHg 100 mmHg [...] X-RAY EXAM L-S SPINE 2/3 VWS Returned Results Summary Not available. History Of [...] 3:08PM Renal failure Jun 16 2017 3:08PM Payers Insurance Name Company Name Plan Name Plan Number Policy Number Policy Group Number Start Date Medicare [facility] Medicare C [id number] Thursday, 2007 [facility] - [facility] [id number] N/A [facility] [id number] N/A [employer] [place] [employer] [place] [id number] N/A Medicare Part A Medicare Part A [id number] N/A [employer] - [place] - [place] State [facility] [id number] N/A Medicare Part A Medicare - Lab/Xray [id number] N/A Medicare [facility] Medicare RHC [id number] N/A Medicare Part B Medicare Of [place] [id number] N/A [employer] [facility] [id number] N/A History of Encounters Visit Date Visit Type Provider 06/16/2017 Office visit Britta Garces BRASS INSTRUMENT REPAIR TECHNICIAN 06/10/2017 Office visit Martin Lopez MD 05/14/2017 [...] Lopez MD 12/18/2016 Office visit Maverick Urbina BRASS INSTRUMENT REPAIR TECHNICIAN 12/13/2016 Hospital Karissa Aguilar MD 12/09/2016 Office visit Martin Lopez MD 11/23/2016 Hospital Karissa Aguilar MD 11/19/2016 Office visit Martin Lopez MD 10/26/2016 Office visit Martin Lopez MD 10/13/2016 Office visit Martin Lopez MD 10/11/2016 Hospital Luanne Purcell MD 10/11/2016 Surgery Ishan Seymour DO 10/11/2016 Hospital Karissa Aguilar MD 10/10/2016 Office visit Adriana Angel BRASS INSTRUMENT REPAIR TECHNICIAN 09/29/2016 Office visit Martin Lopez MD [...] 08/28/2015 Office visit Martin Lopez MD 08/02/2015 [facility] Ross Abraham MD 06/26/2015 Office visit [...]
--- OUTSIDE RECORDS SUMMARY | 2018-01-03 20:34 | XMS REPORT ---
Author Author Martin Lopez [facility] Address [address] [place], [place] [address] Care Team Providers Care Cpc Coder Name Role Phone Martin Lopez PCP Martin [...] HC BMI BSA BMI Percentile O2 Sat(%) 06/10/2017 9:14:00 AM 190 mmHg 104 mmHg [...] 9:16AM Chronic pain Jun 10 2017 9:16AM Payers Insurance Name Company Name Plan Name Plan Number Policy Number Policy Group Number Start Date Medicare [facility] Medicare RHC [id number] Thursday, 2007 [facility] Plan [facility] Health [facility] - [facility] [id number] N/A [facility] [id number] N/A [employer] [employer] [place] [id number] N/A Medicare Part A Medicare Part A [id number] N/A [employer] [place] [facility] [employer] [place] [id number] N/A Medicare Part A Medicare - Lab/Xray [id number] N/A Medicare RHC Medicare RHC [id number] N/A Medicare Part B Medicare Of [place] [id number] N/A [employer] [place] State Plan Amer[employer] [facility] Plan [id number] N/A History of Encounters Visit Date Visit Type Provider 06/10/2017 Office visit Martin Lopez MD 05/14/2017 [...] 10/13/2016 Office visit Martin Lopez MD 10/11/2016 [facility] Luanne Purcell MD 10/11/2016 Surgery Ishan Seymour DO 10/11/2016 Hospital Karissa Aguilar MD 10/10/2016 Office visit Adriana Angel ARCHERY INSTRUCTOR 09/29/2016 Office visit Martin Lopez MD 09/17/2016 Office visit Martin Lopez MD 09/07/2016 Office visit Martin Lopez MD 08/12/2016 Office visit Martin Lopez MD 07/20/2016 Office visit Martin Lopez MD 07/06/2016 Office visit Martin Lopez MD 05/26/2016 Office visit Martin Lpoez MD 05/06/2016 Office visit Martin Lopez MD [...]
--- OUTSIDE RECORDS SUMMARY | 2018-01-03 20:34 | XMS REPORT ---
Author Author Martin Lopez [facility] Address [address] [place], [place] [address] Care Team Providers Care Computer Technologist Name Role Phone Martin Lopez PCP Martin Lopez PreferredProvider Allergies and Adverse Reactions Name Reaction Notes NO KNOWN DRUG ALLERGIES Plan of Treatment Planned Activity Comments Planned Date Planned Time Plan/Goal Sleep monitoring 03/05/2015 12:00 AM URINALYSIS ROUTINE C&S IF IND 01/21/2016 12:00 AM Hip Complete Min 2Views - Main 07/20/2016 12:00 AM Lumbar Spine 2-3 Views - Main 04/12/2017 12:00 AM Medications Active Name Start Date Estimated Completion Date SIG Comments lisinopril 40 mg oral tablet 05/06/2016 05/01/2017 take 1 tablet (40 mg) by oral route once daily for 30 days CPAP 07/06/2016 11 cm H20 ProAir HFA 90 mcg/actuation inhalation HFA aerosol inhaler 07/06/2016 inhale 2 puffs (180 mcg) by inhalation route at least 15 minutes before exertion Zofran ODT 4 mg oral tablet,disintegrating 12/18/2016 dissolve 1 tablet by oral route every 8 hours for 3 days triamcinolone acetonide 0.1 % topical ointment 02/01/2017 apply a thin layer to the affected area(s) by topical route 2 times per day Xanax 1 mg oral tablet 02/11/2017 take 1 tablet by oral route 4 times a day as needed pantoprazole 40 mg oral tablet,delayed release (DR/EC) 02/22/2017 take 1 tablet by oral route QD three times a week after dialysis Coreg 25 mg oral tablet 02/23/2017 07/23/2017 take 1 tablet (25 mg) by oral route 2 times per day with food for 30 days Norvasc 5 mg oral tablet take 1 tablet (5 mg) by oral route once daily promethazine-codeine 6.25-10 mg/5 mL oral syrup 03/15/2017 take 5 milliliters by oral route every 6 hours as needed, not to exceed 30 mL in 24 hours oxycodone 30 mg oral tablet 04/08/2017 take 1 tablet by oral route every [...] 12/01/2016 take as directed for 6 days Discontinued Name Start Date Discontinued Date SIG Comments Zofran (as hydrochloride) 4 mg oral tablet 11/22/2015 07/06/2016 take 1 tablet every 8hrs prn nausea Viagra 100 mg oral tablet 07/20/2016 10/10/2016 take 1 tablet (100 mg) by oral route once daily as needed approximately 1 hour before sexual activity Problem List Description Status Onset Hypertension Active Renal failure Active Rotator cuff tear Active Vital Signs Date Time BP-Sys(mm[Hg] BP-Dahiana(mm[Hg]) HR(bpm) RR(rpm) Temp WT HT HC BMI BSA BMI Percentile O2 Sat(%) 04/12/2017 10:29:00 AM 150 mmHg 90 mmHg [...] rpm 97.1 F 185 lbs 68 in 28.13 kg/m2 2.01 m2 98 % 01/25/2017 9:33:00 AM 146 mmHg 86 mmHg 74 bpm 20 rpm 96.9 F 185.25 lbs 68 in 28.1669 kg/m 2.0079 m 97 % 12/22/2016 10:04:00 AM 118 mmHg 78 mmHg 89 bpm 16 rpm 96 F 188.5 lbs 68.5 in 28.24 kg/m2 2.03 m2 98 % 12/18/2016 1:21:00 PM 140 mmHg 90 mmHg 82 bpm 20 rpm 98.5 F 188 lbs 68.5 in 28.1692 kg/m 2.0301 m 97 % 12/09/2016 9:42:00 AM 178 mmHg 86 mmHg 88 bpm 18 rpm 97.6 F 195 lbs 68.5 in 29.22 kg/m2 2.07 m2 98 % 11/19/2016 10:48:00 AM 142 mmHg 82 mmHg 92 bpm 20 rpm 97.1 F 189 lbs 68.5 in 28.3191 kg/m 2.0355 m 99 % 10/26/2016 10:18:00 AM 160 mmHg 90 mmHg 84 bpm 18 rpm 97.2 F 196 lbs 68.5 in 29.37 kg/m2 2.07 m2 98 % 10/13/2016 12:59:00 PM 142 mmHg 80 mmHg 88 bpm 16 rpm 98.5 F 193.25 lbs 68.5 in 28.9559 kg/m 2.0583 m 98 % 10/10/2016 1:11:00 PM 134 mmHg 90 mmHg 99 bpm 20 rpm 98.6 F 192 lbs 68.5 in 28.77 kg/m2 2.05 m2 96 % 09/29/2016 1:23:00 PM 157 mmHg 90 mmHg 85 bpm 20 rpm 97.8 F 192.5 lbs 68.5 in 28.8435 kg/m 2.0543 m 100 % 09/17/2016 10:53:00 AM 142 mmHg 90 mmHg 82 bpm 16 rpm 97.4 F 187.5 lbs 68.5 in 28.09 kg/m2 2.03 m2 97 % 09/07/2016 8:25:00 AM 146 mmHg 92 mmHg 76 bpm 16 rpm 96.8 F 191 lbs 68.5 in 28.6187 kg/m 2.0463 m 98 % 08/12/2016 8:58:00 AM 150 mmHg 88 mmHg 94 bpm 18 rpm 97.1 F 198 lbs 68.5 in 29.67 kg/m2 2.08 m2 98 % 07/20/2016 1:50:00 PM 158 mmHg 90 mmHg 82 bpm 20 rpm 97.7 F 204.25 lbs 68.5 in 30.6041 kg/m 2.116 m 100 % 07/06/2016 10:42:00 AM 182 mmHg 96 mmHg 86 bpm 18 rpm 97.5 F 204 lbs 68.5 in 30.57 kg/m2 2.11 m2 100 % 05/26/2016 10:51:00 AM 140 mmHg 80 mmHg 82 bpm 18 rpm 97.6 F 201.25 lbs 68.5 in 30.1546 kg/m 2.1005 m 96 % 05/06/2016 9:57:00 AM 144 mmHg 92 mmHg 79 bpm 20 rpm 98 F 202 lbs 68.5 in 30.27 kg/m2 2.10 m2 100 % 04/22/2016 10:24:00 AM 148 mmHg 90 mmHg 102 bpm 18 rpm 97.8 F 206.375 lbs 68.5 in 30.9225 kg/m 2.127 m 98 % 04/07/2016 10:46:00 AM 144 mmHg 86 mmHg 108 bpm 18 rpm 97.8 F 201 lbs 68.5 in 30.12 kg/m2 2.10 m2 100 % 03/16/2016 11:33:00 AM 120 mmHg 70 mmHg 58 bpm 18 rpm 96.7 F 210 lbs 68 in 31.9301 kg/m 2.1378 m 02/06/2016 10:15:00 AM 152 mmHg [...] Low Back Pain Apr 12 2017 10:31AM Payers Insurance Name Company Name Plan Name Plan Number Policy Number Policy Group Number Start Date Medicare RHC Medicare RHC [id number] Thursday, 2007 [facility] - RHC [id number] N/A [facility] Plan [id number] N/A Medicare Part A Medicare Part A [id number] N/A [employer] [place] [employer] [place] [id number] N/A Medicare Part A Medicare - Lab/Xray [id number] N/A Medicare RHC Medicare RHC [id number] N/A Medicare Part B Medicare Of [place] [id number] N/A [employer] [place] State [facility] [employer] [facility] [id number] N/A History of Encounters Visit Date Visit Type Provider 04/12/2017 Office visit Martin Lopez MD 04/08/2017 Office visit Martin Lopez MD 03/15/2017 Office visit Martin Lopez MD 02/23/2017 Office visit Martin Lopez MD 02/22/2017 Office visit Ross Abraham MD 02/11/2017 Office visit Martin Lopez MD 02/01/2017 Office visit Martin Lopez MD 01/25/2017 Office visit Martin Lopez MD 12/22/2016 Office visit Martin Lpoez MD 12/18/2016 Office visit Maverick Urbina APRN 12/13/2016 Hospital Karissa Aguilar MD 12/09/2016 Office visit Martin Lopez MD 11/23/2016 Hospital Karissa Aguilar MD 11/19/2016 Office visit Martin Lopze MD 10/26/2016 Office visit Martin Lopez MD 10/13/2016 Office visit Martin Lopez MD 10/11/2016 Hospital Luanne Purcell MD 10/11/2016 Surgery Ishan Seymour DO 10/11/2016 Hospital Karissa Aguilar MD 10/10/2016 Office visit Adriana Angel APRN 09/29/2016 Office visit Martin Lopez [...]
--- OUTSIDE RECORDS SUMMARY | 2018-01-03 20:35 | XMS REPORT ---
Author Author Martin Lopez [facility] Address [address] [place], [place] [id number] Care Team Providers Care Math Coach Name Role Phone Martin Lopez PCP Unavailable [...] route at least 15 minutes before exertion triamcinolone acetonide 0.1 % topical ointment 09/07/2016 apply a thin layer to the affected area(s) by topical route 2 times per day oxycodone 30 mg oral tablet 09/29/2016 take 1 tablet by oral route 4 times a day as needed Xanax 2 mg oral tablet 09/29/2016 take 1 tablet by oral route 3 times a day as needed promethazine-codeine 6.25-10 mg/5 mL oral syrup 10/13/2016 take 5 milliliters by oral route every 6 hours as needed, not to exceed 30 mL in 24 hours Name Start Date Expiration Date SIG [...] 2 times per day for 7 days Discontinued Name Start Date [...] HC BMI BSA BMI Percentile O2 Sat(%) 10/26/2016 10:18:00 AM 160 mmHg 90 mmHg [...] 07/20/2016 12:00 AM Decadron 8mg Injection Reviewed Results Summary Not available. History [...] stage kidney disease Oct 13 2016 1:01PM Payers Insurance Name Company Name Plan Name Plan Number Policy Number Policy Group Number Start Date Medicare RHC Medicare RHC [id number] Thursday, 2007 [facility] Plan [facility] - RHC [id number] N/A [facility] Plan [facility] Plan [id number] N/A Medicare Part A Medicare Part A [id number] N/A [employer] [place] [employer] [place] [id number] N/A Medicare Part A Medicare - Lab/Xray [id number] N/A Medicare RHC Medicare RHC [id number] N/A Medicare Part B Medicare Of [place] [id number] N/A [employer] [place] [employer] [place] Plan [id number] N/A History of Encounters Visit Date Visit Type Provider 10/26/2016 Office visit Martin Lopez MD 10/13/2016 Office visit Martin Lopez MD 10/11/2016 Hospital Luanne Purcell MD 10/11/2016 Surgery Ishan Seymour DO 10/10/2016 Office visit Adriana Angel APRN 09/29/2016 [...]
--- OUTSIDE RECORDS SUMMARY | 2018-01-03 20:35 | XMS REPORT ---
Author Author Martin Lopez [facility] Address [address] [place], [place] [address] Care Team Providers Care Survey Worker Name Role Phone Martin Lopez PCP Unavailable Allergies and Adverse Reactions Name Reaction Notes NO KNOWN DRUG ALLERGIES Plan of Treatment Not available. Medications Active Name Start Date Estimated Completion Date SIG Comments amlodipine 5 mg oral [...] 30 days oxycodone 10 mg oral tablet 11/06/2014 take 1 tablet by oral route 4 times a day Problem List Description Status Onset Hypertension Active Renal Failure Active Rotator cuff tear Active Vital Signs Date Time BP-Sys(mm[Hg] BP-Dahiana(mm[Hg]) HR(bpm) RR(rpm) Temp WT HT HC BMI BSA BMI Percentile O2 Sat(%) 11/06/2014 9:55:00 AM 184 mmHg 108 mmHg 98 bpm 72 rpm 98.4 F 178 lbs 68.5 in 26.67 kg/m2 1.98 m2 10/09/2014 10:48:00 AM 124 mmHg 88 mmHg 72 bpm 18 rpm 96.8 F 175 lbs 68.5 in 26.2214 kg/m 1.9587 m Social History Name Description Comments Tobacco Current every day smoker 10 cigarettees daily History of Procedures Not available. Results Summary Not available. History Of Immunizations Not available. History of Past Illness Name Date of Onset Comments Renal Failure Hypertension Rotator cuff tear right ulcer Hypertension Oct 09 2014 11:03AM Chronic pain Oct 09 2014 11:03AM Hypertension Nov 06 2014 10:00AM Chronic pain Nov 06 2014 10:00AM Payers Insurance Name Company Name Plan Name Plan Number Policy Number Policy Group Number Start Date Medicare Part A Medicare Part A [id number] N/A [employer] - [facility] [place] State Plan [facility] [place] State Plan [id number] N/A History of Encounters Visit Date Visit Type Provider 11/06/2014 Office visit Martin Lopez MD 10/09/2014 Office visit Martin Lopez MD
--- OUTSIDE RECORDS SUMMARY | 2018-01-03 20:36 | XMS REPORT ---
Author Author Martin Lopez [facility] Address [address] [place], [place] [id number] Care Team Providers Care Rental Management Trainee Name Role Phone Martin Lopez PCP Unavailable [...] topical route 2 times per day Xanax 2 mg oral tablet 10/26/2016 take 1 tablet by oral route 4 times a day as needed Zofran ODT 4 mg oral tablet,disintegrating 12/18/2016 dissolve 1 tablet by oral route every 8 hours for 3 days oxycodone 30 mg oral tablet 12/22/2016 take 1 tablet by oral route every 4 hours as needed promethazine-codeine 6.25-10 mg/5 mL oral syrup 12/22/2016 take 5 milliliters by oral route every [...] HC BMI BSA BMI Percentile O2 Sat(%) 12/22/2016 10:04:00 AM 118 mmHg 78 mmHg [...] 12/18/2016 12:00 AM THER/PROPH/DIAG INJ SC/IM Reviewed Results Summary Not available. History Of [...] Other chronic pain Dec 22 2016 10:07AM Payers Insurance Name Company Name Plan Name Plan Number Policy Number Policy Group Number Start Date Medicare [facility] Medicare [facility] [id number] Thursday, 2007 [facility] Plan [facility] - [facility] [id number] N/A [facility] [id number] N/A Medicare Part A Medicare Part A [id number] N/A [employer] - [facility] [place] State [place] [employer] [place] State [place] [id number] N/A Medicare Part A Medicare - Lab/Xray [id number] N/A Medicare RHC Medicare RHC [id number] N/A Medicare Part B Medicare Of [place] [id number] N/A [employer] [place] State Plan [employer] [place] State Plan [id number] N/A History of Encounters Visit Date Visit Type Provider 12/22/2016 Office visit Martin Lopez MD 12/18/2016 Office visit Maverick Urbina TEST DESK TROUBLE LOCATOR 12/09/2016 Office visit Martin Lopez MD 11/19/2016 Office visit Martin Lopez MD 10/26/2016 Office visit Martin Lopez MD 10/13/2016 Office visit Martin Lopez MD 10/11/2016 Hospital Luanne Purcell MD 10/11/2016 Surgery Ishan Seymour DO 10/10/2016 Office visit Adriana Angel TEST DESK TROUBLE LOCATOR 09/29/2016 Office visit Martin Lopez MD 09/17/2016 [...]
--- OUTSIDE RECORDS SUMMARY | 2018-01-03 20:36 | XMS REPORT ---
Author Author Martin Lopez [facility] Address [address] [place], [place] [id number] Care Team Providers Care Circuit Board Inspector Name Role Phone Martin Lopez PCP Martin [...] route every 8 hours for 3 days promethazine-codeine 6.25-10 mg/5 mL oral syrup 02/01/2017 take 5 milliliters by oral route every 6 hours as needed, not to exceed 30 mL in 24 hours triamcinolone acetonide 0.1 % topical ointment 02/01/2017 apply a thin layer to the affected area(s) by topical route 2 times per day Xanax 1 mg oral tablet 02/11/2017 take 1 tablet by oral route 4 times a day as needed oxycodone 15 mg oral tablet 02/11/2017 take 1 tablet by oral route every [...] HC BMI BSA BMI Percentile O2 Sat(%) 02/11/2017 9:15:00 AM 154 mmHg 90 mmHg [...] 2017 9:17AM Gastritis Feb 11 2017 9:17AM Payers Insurance Name Company Name Plan Name Plan Number Policy Number Policy Group Number Start Date Medicare RHC Medicare RHC [id number] Thursday, 2007 [facility] [id number] N/A [facility] Plan [id number] N/A Medicare Part A Medicare Part A [id number] N/A [employer] [place] [employer] [place] [id number] N/A Medicare Part A Medicare - Lab/Xray [id number] N/A Medicare RHC Medicare RHC [id number] N/A Medicare Part B Medicare Of [place] [id number] N/A [employer] [place] [facility] [employer] [place] State Plan [id number] N/A History of Encounters Visit Date Visit Type Provider 02/11/2017 Office visit Martin Lopez MD 02/01/2017 Office visit Martin Lopez MD 01/25/2017 Office visit Martin Lopez MD 12/22/2016 Office visit Martin Lopez MD 12/18/2016 Office visit Maverick Urbina APRN 12/13/2016 Hospital Karissa Aguilar MD 12/09/2016 Office visit Martin Lopez MD 11/23/2016 [facility] Karissa Aguilar MD 11/19/2016 Office visit Martin Lopez MD 10/26/2016 Office visit Martin Lopez MD 10/13/2016 Office visit Martin Lopez MD 10/11/2016 [facility] Luanne Purcell MD 10/11/2016 Surgery Ishan Seymour DO 10/11/2016 [facility] Karissa Aguilar MD 10/10/2016 Office visit Adriana [...]
--- OUTSIDE RECORDS SUMMARY | 2018-01-03 20:37 | XMS REPORT ---
Author Author Martin Lopez [facility] Address [address] [place], [place] [id number] Care Team Providers Care Kinder Teacher Name Role Phone Martin Lopez PCP Unavailable [...] to exceed 30 mL in 24 hours lisinopril 40 mg oral tablet 05/06/2016 05/01/2017 take 1 tablet (40 mg) by oral route once daily for 30 days oxycodone 30 mg oral tablet 05/06/2016 take 1 tablet (30 mg) by oral route every 6 hours Xanax 1 mg oral tablet 05/06/2016 take 1 tablet by oral route 4 times a day as needed Name Start Date Expiration Date [...] HC BMI BSA BMI Percentile O2 Sat(%) 05/06/2016 9:57:00 AM 144 mmHg 92 mmHg [...] 2016 9:59AM Anxiety May 06 2016 9:59AM Payers Insurance Name Company Name Plan Name Plan Number Policy Number Policy Group Number Start Date Medicare RHC Medicare RHC [id number] N/A [facility] [id number] N/A Medicare Part A Medicare Part A [id number] N/A [email or web address] [place] State Plan [employer] - [facility] State Plan [id number] N/A Medicare Part A Medicare - Lab/Xray [id number] N/A Medicare RHC Medicare RHC [id number] N/A Medicare Part B Medicare Of [place] [id number] N/A [employer] [place] State Plan [employer] [place] State Plan [id number] N/A History of Encounters Visit Date Visit Type Provider 05/06/2016 Office visit Martin Lopez MD 04/22/2016 Office visit Martin Lopez MD 04/07/2016 Office visit Martin Lopez MD 03/16/2016 Office visit Martin Lopez MD 02/06/2016 Office visit Martin Lopez MD 12/31/2015 Office visit Martin Lopez MD 10/28/2015 Office visit Martin Lopez MD 10/08/2015 Office visit Martin Lopez MD 08/28/2015 Office visit Martin Lopez MD 08/02/2015 [facility] Ross Abraham MD 06/26/2015 Office visit Ross [...]
--- OUTSIDE RECORDS SUMMARY | 2018-01-03 20:37 | XMS REPORT ---
Author Author Martin Lopez [facility] Address [address] [place], [place] [phone] Care Team Providers Care Custom Seamstress Name Role Phone Martin Lopez PCP Unavailable [...] 30 days CPAP 07/06/2016 11 cm H20 oxycodone 10 mg oral tablet 07/06/2016 take 1-2 tablets by oral route every 4 hours as needed Xanax 1 mg oral tablet 07/06/2016 take [...] HC BMI BSA BMI Percentile O2 Sat(%) 07/06/2016 10:42:00 AM 182 mmHg 96 mmHg [...] Low Back Pain Jul 06 2016 10:50AM Payers Insurance Name Company Name Plan Name Plan Number Policy Number Policy Group Number Start Date Medicare RHC Medicare RHC [id number] Thursday, 2007 [facility] [id number] N/A Medicare Part A Medicare Part A [id number] N/A [employer] - [facility] - [place] State Plan [employer] - [facility] State Plan [id number] N/A Medicare Part A Medicare - Lab/Xray [id number] N/A Medicare [facility] Medicare [facility] [id number] N/A Medicare Part B Medicare Of [place] [id number] N/A [employer] [place] [employer] [place] [id number] N/A History of Encounters Visit Date Visit Type Provider 07/06/2016 Office visit Martin Lopez MD 05/26/2016 Office visit Martin Lopez MD 05/06/2016 Office visit Martin Lopez MD 04/22/2016 Office visit Martin Lopez MD 04/07/2016 Office visit Martin Lopez MD 03/16/2016 Office visit Martin Lopez MD 02/20/2016 Hospital Karissa Aguilar MD 02/06/2016 Office visit Martin Lopez MD 12/31/2015 Office visit Martin Lopez MD 10/28/2015 Office visit Martin Lopze MD 10/08/2015 Office visit Martin Lopez MD [...]
--- OUTSIDE RECORDS SUMMARY | 2018-01-03 20:38 | XMS REPORT ---
Author Author Martin Lopez [facility] Address [address] [place], [place] [phone] Care Team Providers Care Photofinishing Laboratory Worker Name Role Phone Martin Lopez PCP [...] 4 times a day as needed oxycodone 20 mg oral tablet 12/09/2016 take 1 tablet by oral route every 4 hours as needed promethazine-codeine 6.25-10 mg/5 mL oral syrup 12/09/2016 take 5 milliliters by oral route every [...] HC BMI BSA BMI Percentile O2 Sat(%) 12/09/2016 9:42:00 AM 178 mmHg 86 mmHg [...] AM UPR/L XTREMITY ART 2 LEVELS Returned Results Summary Not available. History Of [...] 2016 9:48AM Cough Dec 09 2016 9:48AM Payers Insurance Name Company Name Plan Name Plan Number Policy Number Policy Group Number Start Date Medicare RHC Medicare RHC [id number] Thursday, 2007 [facility] Health [facility] - [facility] [id number] N/A [facility] [id number] N/A Medicare Part A Medicare Part A [id number] N/A [employer] [place] State [facility] [employer] - [place] State Plan [id number] N/A Medicare Part A Medicare - Lab/Xray [id number] N/A Medicare RHC Medicare RHC [id number] N/A Medicare Part B Medicare Of [place] [id number] N/A [employer] [place] [employer] [place] [id number] N/A History of Encounters Visit Date Visit Type Provider 12/09/2016 Office visit Martin Lopez MD 11/19/2016 Office visit Martin Lopez MD 10/26/2016 Office visit Martin Lopez MD 10/13/2016 Office visit Martin Lopez MD 10/11/2016 Hospital Luanne Purcell MD 10/11/2016 Surgery Ishan Seymour DO 10/10/2016 Office visit Adriana Angel CONSTRUCTION TECH 09/29/2016 Office visit Martin Lopez MD 09/17/2016 [...]
--- OUTSIDE RECORDS SUMMARY | 2018-01-03 20:38 | XMS REPORT ---
Author Author Martin Lopez [facility] Address [address] [place], [place] [id number] Care Team Providers Care Dye House Hand Name Role Phone Martin Lopez PCP Unavailable [...] per day oxycodone 30 mg oral tablet 10/26/2016 take 1 tablet by oral route 4 times a day as needed Xanax 2 mg oral tablet 10/26/2016 take 1 tablet by oral route 4 times a day as needed promethazine-codeine 6.25-10 mg/5 mL oral syrup 11/19/2016 take 5 milliliters by oral route every [...] HC BMI BSA BMI Percentile O2 Sat(%) 11/19/2016 10:48:00 AM 142 mmHg 82 mmHg [...] 2016 10:50AM Anxiety Nov 19 2016 10:50AM Payers Insurance Name Company Name Plan Name Plan Number Policy Number Policy Group Number Start Date Medicare RHC Medicare RH [id number] Thursday, 2007 [facility] - [facility] [id number] N/A [facility] [id number] N/A Medicare Part A Medicare Part A [id number] N/A [employer] [place] [employer] [place] [id number] N/A Medicare Part A Medicare - Lab/Xray [id number] N/A Medicare [facility] Medicare RHC [id number] N/A Medicare Part B Medicare Of [place] [id number] N/A [employer] [place] [employer] [place] [id number] N/A History of Encounters Visit Date Visit Type Provider 11/19/2016 Office visit Martin Lopez MD 10/26/2016 Office visit Martin Lopez MD 10/13/2016 Office visit Martin Lopez MD 10/11/2016 [facility] Luanne Purcell MD 10/11/2016 Surgery Ishan Seymour [...] 08/28/2015 Office visit Martin Lopez MD 08/02/2015 [facility] Ross Abraham MD 06/26/2015 [...]
--- OUTSIDE RECORDS SUMMARY | 2018-01-03 20:39 | XMS REPORT ---
Author Author Ross Abraham [facility] Address [address] [place], [place] [address] Care Team Providers Care Development Technical Lead Name Role Phone Ross Abraham PCP Martin Lopez PreferredProvider Allergies and Adverse [...] needed promethazine-codeine 6.25-10 mg/5 mL oral syrup 02/19/2017 take 5 milliliters by oral route every 6 hours as needed, not to exceed 30 mL in 24 hours pantoprazole 40 mg oral tablet,delayed release (DR/EC) 02/22/2017 take 1 tablet by oral route QD three times a week after dialysis Name Start Date Expiration Date SIG Comments [...] HC BMI BSA BMI Percentile O2 Sat(%) 02/22/2017 1:20:00 PM 210 mmHg 100 mmHg [...] 9:17AM Acute gastritis Feb 22 2017 1:20PM Payers Insurance Name Company Name Plan Name Plan Number Policy Number Policy Group Number Start Date Medicare RHC Medicare RHC [id number] Thursday, 2007 [facility] - [facility] [id number] N/A [facility] [id number] N/A Medicare Part A Medicare Part A [id number] N/A [employer] - RHC - [place] State [facility] [employer] - RHC [place] State Plan [id number] N/A Medicare Part A Medicare - Lab/Xray [id number] N/A Medicare C Medicare RHC [id number] N/A Medicare Part B Medicare Of [place] [id number] N/A [employer] [facility] [employer] [facility] [id number] N/A History of Encounters Visit Date Visit Type Provider 02/22/2017 Office visit Ross Abraham MD 02/11/2017 [...] 03/16/2016 Office visit Martin Lopez MD 02/20/2016 [facility] Karissa Aguilar MD 02/06/2016 Office visit [...]
--- OUTSIDE RECORDS SUMMARY | 2018-01-03 20:39 | XMS REPORT ---
Author Author Ross Abraham [facility] Address [address] [place], [place] [address] Care Team Providers Care Resin Remover Name Role Phone Ross Abraham PCP Unavailable Allergies and Adverse Reactions Name [...] 30 days oxycodone 10 mg oral tablet 05/16/2015 take 1 tablet by oral route 4 times a day Xanax 1 mg oral tablet 05/16/2015 10/13/2015 take 1 tablet (1 mg) by oral route 3 times per day for 30 days Name Start Date Expiration Date SIG Comments amlodipine 5 mg oral tablet 11/06/2014 06/04/2015 take 1 tablet (5 mg) by oral route once daily for 30 days Problem List Description Status Onset Hypertension Active Renal failure Active Rotator cuff tear Active Vital Signs Date Time BP-Sys(mm[Hg] BP-Dahiana(mm[Hg]) HR(bpm) RR(rpm) Temp WT HT HC BMI BSA BMI Percentile O2 Sat(%) 06/21/2015 9:28:00 AM 122 mmHg 78 mmHg [...] failure Hypertension Rotator cuff tear right ulcer Hypertension [...] Abdominal Pain, lower Jun 26 2015 2:22PM Payers Insurance Name Company Name Plan Name Plan Number Policy Number Policy Group Number Start Date Medicare Part A Medicare RHC [id number] N/A [employer] [place] [employer] [place] [id number] N/A Medicare Part A Medicare - Lab/Xray [id number] N/A Medicare Part A Medicare Part A [id number] N/A History of Encounters Visit Date Visit Type Provider 06/26/2015 Office visit Ross Abraham MD 06/21/2015 Office visit Martin Lopez MD 05/16/2015 Office visit Martin Lopez MD 03/05/2015 Office visit Martin Lopez MD 02/04/2015 Office visit Martin Lopez MD 01/08/2015 Office visit Martin Lopez MD 11/29/2014 Office visit Martin Lopez MD 11/06/2014 Office visit Martin Lopez MD 10/09/2014 Office visit Martin Lopez MD
--- OUTSIDE RECORDS SUMMARY | 2018-01-03 20:40 | XMS REPORT ---
Author Author Martin Lopez [facility] Address [address] [place], [place] [address] Care Team Providers Care Freight Coordinator Name Role Phone Martin Lopez PCP Martin [...] after dialysis oxycodone 30 mg oral tablet 08/18/2017 take 1 tablet by oral route every [...] HC BMI BSA BMI Percentile O2 Sat(%) 08/18/2017 8:31:00 AM 164 mmHg 92 mmHg [...] 04/12/2017 12:00 AM X-RAY EXAM L-S SPINE 04/10 VWS Returned 06/24/2017 12:00 AM CHEST X-RAY [...] stage kidney disease Aug 18 2017 8:33AM Payers Insurance Name Company Name Plan Name Plan Number Policy Number Policy Group Number Start Date Medicare RHC Medicare RHC [id number] Thursday, 2007 [facility] - C [id number] N/A [facility] [id number] N/A [employer] [place] [employer] [place] [id number] N/A Medicare Part A Medicare Part A [id number] N/A [employer] - RHC - [facility] Amer[employer] - RHC [facility] [id number] N/A Medicare Part A Medicare - Lab/Xray [id number] N/A Medicare RHC Medicare RHC [id number] N/A Medicare Part B Medicare Of [place] [id number] N/A [employer] [facility] Amerigroup [facility] [id number] N/A History of Encounters Visit Date Visit Type Provider 08/18/2017 Office visit Martin Lopez MD 07/23/2017 [...] Lopez MD 12/18/2016 Office visit Maverick Urbina COTTON ROLL PACKER 12/13/2016 Hospital Karissa Aguilar MD 12/09/2016 Office visit Martin Lopez MD 11/23/2016 Hospital Karissa Aguilar MD 11/19/2016 Office visit Martin Lopez MD 10/26/2016 Office visit Martin Lopez MD 10/13/2016 Office visit Martin Lopez MD 10/11/2016 Hospital Luanne Purcell MD 10/11/2016 Surgery Ishan Seymour DO 10/11/2016 Hospital Karissa Aguilar MD 10/10/2016 Office visit [place] Angel COTTON ROLL PACKER 09/29/2016 Office visit Martin Lopez MD 09/17/2016 [...]
--- OUTSIDE RECORDS SUMMARY | 2018-01-03 20:40 | XMS REPORT ---
Author Author Martin Lopez [facility] Address [address] [place], [place] [address] Care Team Providers Care Locomotive Crane Engineer Name Role Phone Martin Lopez PCP Unavailable [...] 30 days oxycodone 10 mg oral tablet 03/05/2015 take 1 tablet by oral route 4 times a day Xanax 1 mg oral tablet 03/05/2015 08/02/2015 take 1 tablet (1 mg) by oral route 3 times per day for 30 days Problem List Description Status Onset Hypertension Active Renal failure Active Rotator cuff tear Active Vital Signs Date Time BP-Sys(mm[Hg] BP-Dahiana(mm[Hg]) HR(bpm) RR(rpm) Temp WT HT HC BMI BSA BMI Percentile O2 Sat(%) 03/05/2015 9:34:00 AM 138 mmHg 86 mmHg [...] 9:41AM Chronic pain Mar 05 2015 9:41AM Payers Insurance Name Company Name Plan Name Plan Number Policy Number Policy Group Number Start Date Medicare Part A Medicare Part A [id number] N/A [employer] - [facility] [place] [employer] - [facility] [place] [id number] N/A History of Encounters Visit Date Visit Type Provider 03/05/2015 Office visit Martin Lopez MD 02/04/2015 Office visit Martin Lopez MD 01/08/2015 Office visit Martin Lopez MD 11/29/2014 Office visit Martin Lopez MD 11/06/2014 Office visit Martin Lopez MD 10/09/2014 Office visit Martin Lopez MD
--- OUTSIDE RECORDS SUMMARY | 2018-01-03 20:40 | XMS REPORT ---
Author Author Martin Lopez [facility] Address [address] [place], [place] [address] Care Team Providers Care Marketing Engineer Name Role Phone Martin Lopez PCP [...] oral route once daily for 30 days ProAir HFA 90 mcg/actuation inhalation HFA aerosol inhaler 08/28/2015 inhale 2 puffs (180 mcg) by inhalation route at least 15 minutes before exertion oxycodone 15 mg oral tablet 10/28/2015 take 1 tablet by oral route every 4 hours as needed Xanax 1 mg oral tablet 10/28/2015 03/26/2016 take 1 tablet (1 mg) by oral [...] HC BMI BSA BMI Percentile O2 Sat(%) 10/28/2015 3:20:00 PM 158 mmHg 88 mmHg [...] Low Back Pain Oct 28 2015 3:24PM Payers Insurance Name Company Name Plan Name Plan Number Policy Number Policy Group Number Start Date Medicare Part A Medicare [facility] [id number] N/A [facility] [id number] N/A Medicare Part A Medicare Part A [id number] N/A [employer] - RHC - [place] State Plan [employer] - [facility] State Plan [id number] N/A Medicare Part A Medicare - Lab/Xray [id number] N/A Medicare Part A Medicare RH [id number] N/A Medicare Part B Medicare Of [place] [id number] N/A [employer] [place] State [facility] [place] [facility] [id number] N/A History of Encounters Visit Date Visit Type Provider 10/28/2015 Office visit Martin Lopez MD 10/08/2015 [...]
--- OUTSIDE RECORDS SUMMARY | 2018-01-03 20:41 | XMS REPORT ---
Author Author Martin Lopez [facility] Address [address] [place], [place] [address] Care Team Providers Care Holder Pile Driving Name Role Phone Martin Lopez PCP Unavailable [...] as needed oxycodone 30 mg oral tablet 04/22/2016 take 1 tablet (30 mg) by oral [...] HC BMI BSA BMI Percentile O2 Sat(%) 04/22/2016 10:24:00 AM 148 mmHg 90 mmHg [...] left hip joint Apr 22 2016 10:26AM Payers Insurance Name Company Name Plan Name Plan Number Policy Number Policy Group Number Start Date Medicare RHC Medicare RHC [id number] N/A [facility] - RHC [id number] N/A Medicare Part A Medicare Part A [id number] N/A [employer] - [place] State [place] [employer] - [place] State Plan [id number] N/A Medicare Part A Medicare - Lab/Xray [id number] N/A Medicare RHC Medicare RHC [id number] N/A Medicare Part B Medicare Of [place] [id number] N/A [employer] [place] State Plan Amer[employer] [place] State Plan [id number] N/A History of Encounters Visit Date Visit Type Provider 04/22/2016 Office visit Martin Lopez MD 04/07/2016 [...]
--- OUTSIDE RECORDS SUMMARY | 2018-01-03 20:41 | XMS REPORT ---
Author Author Martin Lopez [facility] Address [address] [place], [place] [id number] Care Team Providers Care Quarter Inspector Name Role Phone Martin Lopez PCP Unavailable Allergies and Adverse Reactions Name Reaction Notes NO KNOWN DRUG ALLERGIES Plan of Treatment Planned Activity Comments Planned Date Planned Time Plan/Goal Sleep monitoring 03/05/2015 12:00 AM Medications Active Name Start [...] Other chronic pain Dec 31 2015 10:08AM Payers Insurance Name Company Name Plan Name Plan Number Policy Number Policy Group Number Start Date Medicare Part A Medicare RHC [id number] N/A [facility] [id number] N/A Medicare Part A Medicare Part A [id number] N/A [facility] - [facility] - [facility] State [facility] [id number] N/A Medicare Part A Medicare - Lab/Xray [id number] N/A Medicare Part A Medicare [facility] [id number] N/A Medicare Part B Medicare Of [place] [id number] N/A [facility] [id number] N/A History of Encounters Visit Date Visit Type Provider 12/31/2015 Office visit Martin Lopez MD 10/28/2015 Office visit Martin Lopez MD 10/08/2015 Office visit Martin Lopez MD 08/28/2015 Office visit Martin Lopez MD 08/02/2015 [facility] Ross Abraham MD 06/26/2015 Office visit Ross [...]
--- OUTSIDE RECORDS SUMMARY | 2018-01-03 20:42 | XMS REPORT ---
Author Author Martin Lopez [facility] Address [address] [place], [place] [address] Care Team Providers Care Screw Machine Operator Swiss Type Name Role Phone Martin Lopez PCP Unavailable Martin Lopez PreferredProvider Unavailable Allergies and Adverse Reactions Name Reaction Notes NO KNOWN DRUG ALLERGIES Plan of Treatment Planned Activity Comments Planned Date Planned Time Plan/Goal Sleep monitoring 03/05/2015 12:00 AM URINALYSIS ROUTINE C&S IF IND 01/21/2016 12:00 AM Hip Complete Min 2Views - Main 07/20/2016 12:00 AM UCHE (Ankle Brachial Index). 11/16/2016 12:00 AM Medications Active Name Start Date [...] day promethazine-codeine 6.25-10 mg/5 mL oral syrup 10/13/2016 take 5 milliliters by oral route every 6 hours as needed, not to exceed 30 mL in 24 hours oxycodone 30 mg oral tablet 10/26/2016 take 1 tablet by oral route 4 times a day as needed Xanax 2 mg oral tablet 10/26/2016 take 1 tablet by oral route 4 times a day as needed oxycodone 15 mg oral tablet 10/27/2016 take 2 tablet (30 mg) by oral route every 6 hours PRN Name Start Date Expiration Date SIG Comments [...] Decreased pedal pulses Nov 16 2016 10:26AM Payers Insurance Name Company Name Plan Name Plan Number Policy Number Policy Group Number Start Date Medicare RHC Medicare RHC [id number] Thursday, 2007 [facility] - C [id number] N/A [facility] [id number] N/A Medicare Part A Medicare Part A [id number] N/A [employer] [place] [employer] [place] State Plan [id number] N/A Medicare Part A Medicare - Lab/Xray [id number] N/A Medicare RHC Medicare RHC [id number] N/A Medicare Part B Medicare Of [place] [id number] N/A [employer] [place] State Plan Amer[employer] [place] State Plan [id number] N/A History of Encounters Visit Date Visit Type Provider 10/26/2016 Office visit Martin Lopez MD 10/13/2016 Office visit Martin Lopez MD 10/11/2016 Hospital Luanne Purcell MD 10/11/2016 Surgery Ishan Seymour DO 10/10/2016 Office visit Adriana Angel NATURAL RESOURCES PROFESSOR 09/29/2016 Office visit Martin Lopez MD [...] 03/16/2016 Office visit Martin Lopez MD 02/20/2016 [facility] Karissa Aguilar MD 02/06/2016 Office visit Martin Lopez MD 12/31/2015 Office visit Martin Lopez MD 10/28/2015 Office visit Martin Lopez MD 10/08/2015 Office visit Martin Lopez MD 08/28/2015 Office visit Martin Lopez MD 08/02/2015 [facility] Ross Abraham MD 06/26/2015 Office visit [...]
--- OUTSIDE RECORDS SUMMARY | 2018-01-03 20:42 | XMS REPORT ---
Author Author Martin Lopez [facility] Address [address] [place], [place] [address] Care Team Providers Care Core Winder Name Role Phone Martin Lopez PCP Martin Lopez PreferredProvider Allergies and Adverse Reactions Name Reaction Notes NO KNOWN DRUG ALLERGIES Plan of Treatment Planned Activity Comments Planned Date Planned Time Plan/Goal Sleep monitoring 03/05/2015 12:00 AM URINALYSIS ROUTINE C&S IF IND 01/21/2016 12:00 AM Hip Complete Min 2Views - Main 07/20/2016 12:00 AM Chest x-ray, PA and lateral 06/24/2017 12:00 AM Medications Active Name Start Date [...] HC BMI BSA BMI Percentile O2 Sat(%) 06/24/2017 9:09:00 AM 142 mmHg 90 mmHg [...] X-RAY EXAM L-S SPINE 04/10 VWS Returned Results Summary Not available. History [...] 9:16AM Chronic pain Jun 24 2017 9:16AM Payers Insurance Name Company Name Plan Name Plan Number Policy Number Policy Group Number Start Date Medicare RHC Medicare C [id number] Thursday, 2007 [facility] Plan [facility] - [facility] [id number] N/A [facility] Plan [id number] N/A [employer] [id number] N/A Medicare Part A Medicare Part A [id number] N/A [employer] - RHC - [place] State Plan Amerigroup - C [place] State Plan [id number] N/A Medicare Part A Medicare - Lab/Xray [id number] N/A Medicare RHC Medicare RHC [id number] N/A Medicare Part B Medicare Of [place] [id number] N/A [employer] [place] State Plan Amer[employer] [place] State Plan [id number] N/A History of Encounters Visit Date Visit Type Provider 06/24/2017 Office visit Martin Lopez MD 06/16/2017 Office visit Britta Garces SURVEILLANCE INVESTIGATOR 06/10/2017 Office visit Martin Lopez MD 05/14/2017 [...] Lopez MD 12/18/2016 Office visit Maverick Urbina SURVEILLANCE INVESTIGATOR 12/13/2016 Hospital Karissa Aguilar MD 12/09/2016 Office visit Martin Lopez MD 11/23/2016 Hospital Karissa Aguilar MD 11/19/2016 Office visit Martin Lopez MD 10/26/2016 Office visit Martin Lopez MD 10/13/2016 Office visit Martin Lopez MD 10/11/2016 Hospital Luanne Purcell MD 10/11/2016 Surgery Ishan Seymour DO 10/11/2016 Hospital Karissa Aguilar MD 10/10/2016 Office visit Adriana Angel SURVEILLANCE INVESTIGATOR 09/29/2016 Office visit Martin Lopez MD 09/17/2016 [...]
--- OUTSIDE RECORDS SUMMARY | 2018-01-03 20:43 | XMS REPORT ---
Author Author Martin Lopez [facility] Address [address] [place], [place] [address] Care Team Providers Care Speech Teacher Name Role Phone Martin Lopez PCP [...] by topical route 2 times per day pantoprazole 40 mg oral tablet,delayed release (DR/EC) [...] once daily oxycodone 30 mg oral tablet 04/08/2017 take 1 tablet by oral route every 4 hours as needed promethazine-codeine 6.25-10 mg/5 mL oral syrup 04/12/2017 take 5 milliliters by oral route every 6 hours as needed, not to exceed 30 mL in 24 hours Xanax 2 mg oral tablet 05/03/2017 08/31/2017 take 1 tablet by oral route 4 times a day as needed for 30 days Name Start [...] HC BMI BSA BMI Percentile O2 Sat(%) 05/03/2017 3:33:00 PM 172 mmHg 86 mmHg [...] (generalized anxiety disorder) May 03 2017 3:38PM Payers Insurance Name Company Name Plan Name Plan Number Policy Number Policy Group Number Start Date [employer] [place] [employer] [id number] N/A [facility] - RHC [id number] N/A [facility] Plan [id number] N/A Medicare Part A Medicare Part A [id number] N/A [employer] [place] [employer] [place] [id number] N/A Medicare Part A Medicare - Lab/Xray [id number] N/A Medicare RHC Medicare RHC [id number] N/A Medicare Part B Medicare Of [place] [id number] N/A [employer] [place] State Plan Amerigroup [place] State Plan [id number] N/A Medicare RHC Medicare RHC [id number] Thursday, March 08, 2007 History of Encounters Visit Date Visit Type Provider 05/03/2017 Office visit Martin Lopez MD 04/12/2017 [...] 12/09/2016 Office visit Martin Lopez MD 11/23/2016 [facility] Karissa Aguilar MD 11/19/2016 Office visit Martin Lopez MD 10/26/2016 Office visit Martin Lopez MD 10/13/2016 Office visit Martin Lopez MD 10/11/2016 Hospital Luanne Purcell MD 10/11/2016 Surgery Ishan Seymour 10/11/2016 Hospital Karissa Aguilar MD 10/10/2016 Office [...]
--- OUTSIDE RECORDS SUMMARY | 2018-01-03 20:44 | XMS REPORT ---
Author Author Martin Lopez [facility] Address [address] [place], [place] [address] Care Team Providers Care Financial Services Rep Name Role Phone Martin Lopez PCP Unavailable [...] Number Start Date Medicare RHC Medicare RHC [id number] Thursday, 2007 [facility] - C [id number] N/A [facility] Plan [id number] N/A Medicare Part A Medicare Part A [id number] N/A [employer] [place] [employer] [place] Plan [id number] N/A Medicare Part A Medicare - Lab/Xray [id number] N/A Medicare RHC Medicare RHC [id number] N/A Medicare Part B Medicare Of [place] [id number] N/A [employer] [place] [employer] [place] [facility] [id number] N/A History of Encounters Visit Date Visit Type Provider 10/26/2016 Office visit Martin Lopez MD 10/13/2016 Office visit Martin Lopez MD 10/11/2016 Hospital Luanne Purcell MD 10/11/2016 Surgery Ishan Seymour DO 10/10/2016 Office visit Adriana Angel RESTAURANT HOSTESS 09/29/2016 Office visit Martin Lopez MD 09/17/2016 [...] 03/16/2016 Office visit Martin Lopez MD 02/20/2016 [facility] Karissa Aguilar MD 02/06/2016 Office visit Martin Lopez MD 12/31/2015 Office visit Martin Lopez MD 10/28/2015 Office visit Martin Lopez MD 10/08/2015 Office visit Martin Lopez MD 08/28/2015 Office visit Martin Lopez MD 08/02/2015 [facility] Ross Abraham MD 06/26/2015 Office visit Ross Abraham MD 06/21/2015 Office visit Martin Lopez MD 05/16/2015 Office visit Martin Lopez MD 03/05/2015 Office visit Martin Lopez MD 02/04/2015 Office visit Martin Lopez MD 01/08/2015 Office visit Martin Lopez MD 11/29/2014 Office visit aMrtin Lopez MD 11/06/2014 Office visit Martin Lopez MD 10/09/2014 Office visit Martin Lopez MD
--- OUTSIDE RECORDS SUMMARY | 2018-01-03 20:45 | XMS REPORT ---
Author Author Martin Lopez [facility] Address [address] [place], [place] [address] Care Team Providers Care Tariff Expert Name Role Phone Martin Lopez PCP Unavailable [...] as needed oxycodone 15 mg oral tablet 04/07/2016 take 1 tablet (15 mg) by oral route every 4 hours Name Start Date Expiration Date SIG [...] HC BMI BSA BMI Percentile O2 Sat(%) 04/07/2016 10:46:00 AM 144 mmHg 86 mmHg [...] Other chronic pain Apr 07 2016 10:54AM Payers Insurance Name Company Name Plan Name Plan Number Policy Number Policy Group Number Start Date Medicare RHC Medicare RHC [id number] N/A [facility] [id number] N/A Medicare Part A Medicare Part A [id number] N/A [employer] [place] [employer] [place] [id number] N/A Medicare Part A Medicare - Lab/Xray [id number] N/A Medicare RHC Medicare RH [id number] N/A Medicare Part B Medicare Of [place] [id number] N/A [employer] [place] State Plan Amer[employer] [place] State Plan [id number] N/A History of Encounters Visit Date Visit Type Provider 04/07/2016 Office visit Martin Lopez MD 03/16/2016 Office visit Martin Lopez MD 02/06/2016 Office visit Martin Lopez MD 12/31/2015 Office visit Martin Lopez MD 10/28/2015 Office visit Martin Lopez MD 10/08/2015 Office visit Martin Lopez MD 08/28/2015 Office visit Martin Lopez MD 08/02/2015 [facility] Ross Abraham MD 06/26/2015 Office visit [...]
--- OUTSIDE RECORDS SUMMARY | 2018-01-03 20:45 | XMS REPORT ---
Author Author Martin Lopez [facility] Address [address] [place], [place] [address] Care Team Providers Care Public Policy Analyst Name Role Phone Martin Lopez PCP Unavailable [...] 2016 10:26AM Anxiety Oct 26 2016 10:26AM Payers Insurance Name Company Name Plan Name Plan Number Policy Number Policy Group Number Start Date Medicare RHC Medicare RHC [id number] Thursday, 2007 [facility] - RHC [id number] N/A [facility] Plan [facility] Plan [id number] N/A Medicare Part A Medicare Part A [id number] N/A [employer] [place] [employer] [place] [id number] N/A Medicare Part A Medicare - Lab/Xray [id number] N/A Medicare RHC Medicare RHC [id number] N/A Medicare Part B Medicare [facility] [id number] N/A [employer] [place] State Plan Amer[employer] [place] State Plan [id number] N/A History of Encounters Visit Date Visit Type Provider 10/26/2016 Office visit Martin Lopez MD 10/13/2016 Office visit Martin Lopez MD 10/11/2016 Hospital Luanne Purcell MD 10/11/2016 Surgery Ishan Seymour DO 10/10/2016 Office visit Adriana Angel LABOR DELIVERY SPECIALIST 09/29/2016 Office visit Martin Lopez MD 09/17/2016 [...]
--- OUTSIDE RECORDS SUMMARY | 2018-01-03 20:45 | XMS REPORT ---
Author Author Martin Lopez [facility] Address [address] [place], [place] [address] Care Team Providers Care Mining Manager Name Role Phone Martin Lopez PCP [...] once daily oxycodone 30 mg oral tablet 03/15/2017 take 1 tablet by oral route every 4 hours as needed promethazine-codeine 6.25-10 mg/5 mL oral syrup 03/15/2017 [...] HC BMI BSA BMI Percentile O2 Sat(%) 03/15/2017 8:39:00 AM 150 mmHg 92 mmHg [...] 8:45AM Chronic pain Mar 15 2017 8:45AM Payers Insurance Name Company Name Plan Name Plan Number Policy Number Policy Group Number Start Date Medicare [facility] Medicare [facility] [id number] Thursday, 2007 [facility] Health [facility] - [facility] [id number] N/A [facility] Plan [id number] N/A Medicare Part A Medicare Part A [id number] N/A [employer] [place] State Plan Amer[employer] - [facility] State Plan [id number] N/A Medicare Part A Medicare - Lab/Xray [id number] N/A Medicare RHC Medicare [facility] [id number] N/A Medicare Part B Medicare Of [place] [id number] N/A [employer] [place] State Plan Amer[employer] [place] State Plan [id number] N/A History of Encounters Visit Date Visit Type Provider 03/15/2017 Office visit Martin Lopez MD 02/23/2017 [...] MD 10/10/2016 Office visit Adriana LMarshall Angel APRN 09/29/2016 Office visit Martin Lopez [...]
--- OUTSIDE RECORDS SUMMARY | 2018-01-03 20:46 | XMS REPORT ---
Author Author Martin Lopez [facility] Address [address] [place], [place] [address] Care Team Providers Care Police Surgeon Name Role Phone Martin Lopez PCP Unavailable [...] route at least 15 minutes before exertion Viagra 100 mg oral tablet 07/20/2016 take 1 tablet (100 mg) by oral route once daily as needed approximately 1 hour before sexual activity promethazine-codeine 6.25-10 mg/5 mL oral syrup 08/17/2016 take 5 milliliters by oral route every 6 hours as needed, not to exceed 30 mL in 24 hours triamcinolone acetonide 0.1 % topical ointment 09/07/2016 apply a thin layer to the affected area(s) by topical route 2 times per day oxycodone 30 mg oral tablet 09/29/2016 take 1 tablet by oral route 4 times a day as needed Xanax 2 mg oral tablet 09/29/2016 take 1 tablet by oral route 3 times a day as needed Name Start [...] HC BMI BSA BMI Percentile O2 Sat(%) 09/29/2016 1:23:00 PM 157 mmHg 90 mmHg [...] 2016 1:25PM Anxiety Sep 29 2016 1:25PM Payers Insurance Name Company Name Plan Name Plan Number Policy Number Policy Group Number Start Date Medicare [facility] Medicare [facility] [id number] Thursday, 2007 [facility] [id number] N/A Medicare Part A Medicare Part A [id number] N/A [facility] - [place] State Plan [facility] State Plan [id number] N/A Medicare Part A Medicare - Lab/Xray [id number] N/A Medicare C Medicare RHC [id number] N/A Medicare Part B Medicare Of [place] [id number] N/A [facility] State Plan [facility] [id number] N/A History of Encounters Visit Date Visit Type Provider 09/29/2016 Office visit Martin Lopez MD 09/17/2016 Office visit Martin Lpoez MD 09/07/2016 Office visit Martin Lopez MD [...]
--- OUTSIDE RECORDS SUMMARY | 2018-01-03 20:46 | XMS REPORT ---
Author Author Martin Lopez [facility] Address [address] [place], [place] [address] Care Team Providers Care Com Writer Name Role Phone Martin Lopez PCP Unavailable [...] Number Start Date Medicare RHC Medicare RHC [id number] N/A [facility]-Health [facility] - [facility] [id number] N/A Medicare Part A Medicare Part A [id number] N/A [facility] - [place] State Plan [employer] - [facility] State Plan [id number] N/A Medicare Part A Medicare - Lab/Xray [id number] N/A Medicare RHC Medicare RHC [id number] N/A Medicare Part B Medicare Of [place] [id number] N/A [employer] [place] [employer] [place] Plan [id number] N/A History of Encounters Visit Date Visit Type Provider 05/06/2016 Office visit Martin Lopez MD 04/22/2016 Office visit Martin Lopez MD 04/07/2016 Office visit Martin Lopez MD 03/16/2016 Office visit Martin Lopez MD 02/06/2016 Office visit Martin Lopez MD 12/31/2015 Office visit Martni Lopez MD 10/28/2015 Office visit Martin Lopez [...]
--- OUTSIDE RECORDS SUMMARY | 2018-01-03 20:47 | XMS REPORT ---
Author Author Martin Lopez [facility] Address [address] [place], [place] [address] Care Team Providers Care Conference Planner Name Role Phone Martin Lopez PCP Martin [...] 30 days oxycodone 30 mg oral tablet 07/05/2017 take 1 tablet by oral route every [...] HC BMI BSA BMI Percentile O2 Sat(%) 07/05/2017 8:16:00 AM 180 mmHg 100 mmHg [...] 8:23AM Chronic pain Jul 05 2017 8:23AM Payers Insurance Name Company Name Plan Name Plan Number Policy Number Policy Group Number Start Date Medicare RHC Medicare RHC [id number] Thursday, 2007 [facility] - RHC [id number] N/A [facility] [id number] N/A [employer] [id number] N/A Medicare Part A Medicare Part A [id number] N/A [employer] [place] [employer] [place] [id number] N/A Medicare Part A Medicare - Lab/Xray [id number] N/A Medicare RHC Medicare RHC [id number] N/A Medicare Part B Medicare Of [place] [id number] N/A [employer] [place] State Plan Amer[employer] [place] State Plan [id number] N/A History of Encounters Visit Date Visit Type Provider 07/05/2017 Office visit Martin Lopez MD 06/28/2017 Office visit Martin Lopez MD 06/24/2017 Office visit Martin Lopez MD 06/16/2017 Office visit Britta Garces PROCESSING SPEC 06/10/2017 Office visit Martin Lopez MD 05/14/2017 [...] Lopez MD 12/18/2016 Office visit Maverick Urbina PROCESSING SPEC 12/13/2016 Hospital Karissa Aguilar MD 12/09/2016 Office visit Martin Lopez MD 11/23/2016 Hospital Karissa Aguilar MD 11/19/2016 Office visit Martin Lopez MD 10/26/2016 Office visit Martin Lopez MD 10/13/2016 Office visit Martin Lopez MD 10/11/2016 Hospital Luanne Purcell MD 10/11/2016 Surgery Ishan Lion DO 10/11/2016 Hospital Karissa Aguilar MD 10/10/2016 Office visit Adriana Angel PROCESSING SPEC 09/29/2016 Office visit Martin Lopez MD 09/17/2016 [...]
--- OUTSIDE RECORDS SUMMARY | 2018-01-03 20:48 | XMS REPORT ---
Author Author Maverick Urbina [facility] Address [address] [place], [place] [id number] Care Team Providers Care Call Manager Name Role Phone Maverick Urbina PCP Martin Lopez PreferredProvider Unavailable Allergies and Adverse [...] to exceed 30 mL in 24 hours Zofran ODT 4 mg oral tablet,disintegrating 12/18/2016 dissolve 1 tablet by oral route every 8 hours for 3 days Name Start Date Expiration Date SIG [...] HC BMI BSA BMI Percentile O2 Sat(%) 12/18/2016 1:21:00 PM 140 mmHg 90 mmHg [...] ART 2 LEVELS Returned 12/18/2016 12:00 AM THER/PROPH/DIAG INJ SC/IM Reviewed [...] 9:48AM Viral gastroenteritis Dec 18 2016 1:22PM Payers Insurance Name Company Name Plan Name Plan Number Policy Number Policy Group Number Start Date Medicare RHC Medicare RHC [id number] Thursday, 2007 [facility] [id number] N/A [facility] Health Plan [id number] N/A Medicare Part A Medicare Part A [id number] N/A [employer] - [place] - [place] State Plan Amer[employer] - [facility] State Plan [id number] N/A Medicare Part A Medicare - Lab/Xray [id number] N/A Medicare [facility] Medicare [facility] [id number] N/A Medicare Part B Medicare Of [place] [id number] N/A [employer] [place] State Plan [employer] [place] State Plan [id number] N/A History of Encounters Visit Date Visit Type Provider 12/18/2016 Office visit Maverick Urbina TUBE BUILDER 12/09/2016 Office visit Martin Lopez MD 11/19/2016 Office visit Martin Lopez MD 10/26/2016 Office visit Martin Lopez MD 10/13/2016 Office visit Martin Lopez MD 10/11/2016 Hospital Luanne Purcell MD 10/11/2016 Surgery Ishan Seymour DO 10/10/2016 Office visit Adriana Angel TUBE BUILDER 09/29/2016 Office visit Martin Lopez MD 09/17/2016 [...]
--- OUTSIDE RECORDS SUMMARY | 2018-01-03 20:49 | XMS REPORT ---
Author Author Martin Lopez [facility] Address [address] [place], [place] [id number] Care Team Providers Care Recyclable Products Sorter Name Role Phone Martin Lopez PCP Unavailable [...] 30 days oxycodone 10 mg oral tablet 01/08/2015 take 1 tablet by oral route 4 times a day Xanax 1 mg oral tablet 01/08/2015 06/07/2015 take 1 tablet (1 mg) by oral route 3 times per day for 30 days Problem List Description Status Onset Hypertension Active Renal Failure Active Rotator cuff tear Active Vital Signs Date Time BP-Sys(mm[Hg] BP-Dahiana(mm[Hg]) HR(bpm) RR(rpm) Temp WT HT HC BMI BSA BMI Percentile O2 Sat(%) 02/04/2015 8:23:00 AM 128 mmHg 82 mmHg [...] 8:29AM Renal Failure Feb 04 2015 8:29AM Payers Insurance Name Company Name Plan Name Plan Number Policy Number Policy Group Number Start Date Medicare Part A Medicare Part A [id number] N/A [employer] - [facility] [place] State Plan [employer] - [facility] [place] State Plan [id number] N/A History of Encounters Visit Date Visit Type Provider 02/04/2015 Office visit Martin Lopez MD 01/08/2015 Office visit Martin Lopez MD 11/29/2014 Office visit Martin Lopez MD 11/06/2014 Office visit Martin Lopez MD 10/09/2014 Office visit Martin Lopez MD
--- OUTSIDE RECORDS SUMMARY | 2018-01-03 20:49 | XMS REPORT ---
Author Author Martin Lopez [facility] Address [address] [place], [place] [address] Care Team Providers Care Composite Assembler Name Role Phone Martin Lopez PCP Unavailable [...] exceed 30 mL in 24 hours Xanax 1 mg oral tablet 08/17/2016 take 1 tablet by oral route 3 times a day as needed oxycodone 30 mg oral tablet 09/07/2016 take 1 tablet by oral route 4 times a day as needed triamcinolone acetonide 0.1 % topical ointment 09/07/2016 apply a thin layer to the affected area(s) by topical route 2 times per day Name Start Date Expiration Date SIG Comments [...] HC BMI BSA BMI Percentile O2 Sat(%) 09/07/2016 8:25:00 AM 146 mmHg 92 mmHg [...] Low Back Pain Sep 07 2016 8:29AM Payers Insurance Name Company Name Plan Name Plan Number Policy Number Policy Group Number Start Date Medicare RHC Medicare RHC [id number] Thursday, 2007 [facility]Health Plan [facility]Note 2] - [facility] [id number] N/A Medicare Part A Medicare Part A [id number] N/A [facility] - [place] State [facility] [employer] - [facility] State Plan [id number] N/A Medicare Part A Medicare - Lab/Xray [id number] N/A Medicare RHC Medicare RHC [id number] N/A Medicare Part B Medicare Of [place] [id number] N/A [employer] [place] [employer] [place] Plan [id number] N/A History of Encounters Visit Date Visit Type Provider 09/07/2016 Office visit Martin Lopez MD 08/12/2016 Office visit Martin Lopez MD 07/20/2016 Office visit Martin Lopez MD 07/06/2016 Office visit Martin Lopez MD 05/26/2016 Office visit Martin Lopez MD 05/06/2016 Office visit Martin Lopez MD 04/22/2016 Office visit Martin Lopez MD 04/07/2016 Office visit Martin Lopez MD 03/16/2016 Office visit Martin Lopez MD 02/20/2016 [facility] Karissa Aguilar MD 02/06/2016 Office visit [...] visit Martin Lopez MD 11/29/2014 Office visit Mratin Lopez MD 11/06/2014 Office visit Martin Lopez MD 10/09/2014 Office visit Martin Lopez MD
--- OUTSIDE RECORDS SUMMARY | 2018-01-03 20:49 | XMS REPORT ---
Author Author Martin Lopez [facility] Address [address] [place], [place] [phone] Care Team Providers Care Multiple Sclerosis Nurse Name Role Phone Martin Lopez PCP Unavailable [...] to exceed 30 mL in 24 hours Viagra 100 mg oral tablet 07/20/2016 take 1 tablet (100 mg) by oral route once daily as needed approximately 1 hour before sexual activity oxycodone 30 mg oral tablet 08/12/2016 take 1 tablet by oral route 4 times a day as needed Xanax 1 mg oral tablet 08/12/2016 take 1 tablet by oral route 3 [...] HC BMI BSA BMI Percentile O2 Sat(%) 08/12/2016 8:58:00 AM 150 mmHg 88 mmHg [...] Low Back Pain Aug 12 2016 9:03AM Payers Insurance Name Company Name Plan Name Plan Number Policy Number Policy Group Number Start Date Medicare [facility] Medicare RHC [id number] Thursday, 2007 [facility] [id number] N/A Medicare Part A Medicare Part A [id number] N/A [employer] - [place] - [place] State Plan [employer] [place] R[place] State Plan [id number] N/A Medicare Part A Medicare - Lab/Xray [id number] N/A Medicare C Medicare RHC [id number] N/A Medicare Part B Medicare Of [place] [id number] N/A [employer] [place] State Plan Amerigroup [facility] Plan [id number] N/A History of Encounters Visit Date Visit Type Provider 08/12/2016 Office visit Martin Lopez MD 07/20/2016 Office visit Martin Lopez MD 07/06/2016 Office visit Martin Lopez MD 05/26/2016 Office visit Martin Lopez MD 05/06/2016 Office visit Martin Lopez MD 04/22/2016 Office visit Martin Lopez MD 04/07/2016 Office visit Martin Lopez MD 03/16/2016 Office visit Martin Lopez MD 02/20/2016 [facility] Karissa Aguilar MD 02/06/2016 Office visit Martin Lopez MD 12/31/2015 Office visit Martin Lopez MD 10/28/2015 Office visit Martin Lopez MD 10/08/2015 Office visit Martin Lopez MD 08/28/2015 Office visit Martin Lopez MD 08/02/2015 [facility] Ross Abraham MD 06/26/2015 Office visit [...]
--- OUTSIDE RECORDS SUMMARY | 2018-01-03 20:50 | XMS REPORT ---
Author Author Martin Lopez [facility] Address [address] [place], [place] [phone] Care Team Providers Care Fire Truck Driver Name Role Phone Martin Lopez PCP Unavailable [...] oral route once daily for 30 days Xanax 1 mg oral tablet 08/28/2015 01/25/2016 take 1 tablet (1 mg) by oral route 3 times per day for 30 days ProAir HFA 90 mcg/actuation inhalation HFA aerosol inhaler 08/28/2015 inhale 2 puffs (180 mcg) by inhalation route at least 15 minutes before exertion oxycodone 15 mg oral tablet 10/08/2015 take 1 tablet by oral route every [...] HC BMI BSA BMI Percentile O2 Sat(%) 10/08/2015 10:20:00 AM 164 mmHg 102 mmHg [...] Chronic back pain Oct 08 2015 10:23AM Payers Insurance Name Company Name Plan Name Plan Number Policy Number Policy Group Number Start Date Medicare Part A Medicare RHC [id number] N/A [facility] - RHC [id number] N/A Medicare Part A Medicare Part A [id number] N/A [employer] - [place] - [place] State Plan [employer] [place] State Plan [id number] N/A Medicare Part A Medicare - Lab/Xray [id number] N/A Medicare Part A Medicare RHC [id number] N/A Medicare Part B Medicare Of [place] [id number] N/A [employer] [place] State [facility] Amerigroup [facility] Plan [id number] N/A History of Encounters Visit Date Visit Type Provider 10/08/2015 Office visit Martin Lopez MD 08/28/2015 Office visit Martin Lopez MD 08/02/2015 [facility] Ross Abraham MD 06/26/2015 Office visit [...]
--- OUTSIDE RECORDS SUMMARY | 2018-01-03 20:50 | XMS REPORT ---
Author Author Martin Lopez [facility] Address [address] [place], [place] [phone] Care Team Providers Care Ict Analyst Name Role Phone Martin Lopez PCP Unavailable Allergies and Adverse Reactions Name Reaction Notes NO KNOWN DRUG ALLERGIES Plan of Treatment Planned Activity Comments Planned Date Planned Time Plan/Goal CHEST X-RAY 2VW FRONTAL&LATL 01/08/2015 12:00 AM Medications Active Name Start Date [...] HC BMI BSA BMI Percentile O2 Sat(%) 01/08/2015 9:02:00 AM 118 mmHg 72 mmHg [...] 9:07AM Chronic pain Jan 08 2015 9:07AM Payers Insurance Name Company Name Plan Name Plan Number Policy Number Policy Group Number Start Date Medicare Part A Medicare Part A [id number] N/A [facility] [place] State Plan [facility] [place] State Plan [id number] N/A History of Encounters Visit Date Visit Type Provider 01/08/2015 Office visit Martin Lopez MD 11/29/2014 Office visit Martin Lopez MD 11/06/2014 Office visit Martin Lopez MD 10/09/2014 Office visit Martin Lopez MD
--- OUTSIDE RECORDS SUMMARY | 2018-01-03 20:50 | XMS REPORT ---
Author Author Martin Lopez [facility] Address [address] [place], [place] [phone] Care Team Providers Care Commercial Housekeeper Name Role Phone Martin Lopez PCP Unavailable [...] 30 days oxycodone 30 mg oral tablet 05/26/2016 take 1 tablet (30 mg) by oral route every 6 hours CPAP 05/26/2016 11 cm H20 Xanax 2 mg oral tablet 05/26/2016 take 1 tablet by oral route 3 [...] HC BMI BSA BMI Percentile O2 Sat(%) 05/26/2016 10:51:00 AM 140 mmHg 80 mmHg [...] 2016 10:52AM Anxiety May 26 2016 10:52AM Payers Insurance Name Company Name Plan Name Plan Number Policy Number Policy Group Number Start Date Medicare RHC Medicare RHC [id number] N/A [facility] [id number] N/A Medicare Part A Medicare Part A [id number] N/A [facility] - [place] State Plan [facility] State Plan [id number] N/A Medicare Part A Medicare - Lab/Xray [id number] N/A Medicare RHC Medicare RHC [id number] N/A Medicare Part B Medicare Of [place] [id number] N/A [employer] [place] [employer] [place] [id number] N/A History of Encounters Visit Date Visit Type Provider 05/26/2016 Office visit Martin Lopez MD 05/06/2016 [...]
--- OUTSIDE RECORDS SUMMARY | 2018-01-03 20:50 | XMS REPORT ---
Author Author Martin Lopez [facility] Address [address] [place], [place] [phone] Care Team Providers Care Surgical Appliances Salesperson Name Role Phone Martin Lopez PCP Unavailable [...] (obstructive sleep apnea) Jun 21 2015 9:35AM Payers Insurance Name Company Name Plan Name Plan Number Policy Number Policy Group Number Start Date Medicare Part A Medicare [facility] [id number] N/A [employer] - [facility] - [place] State Plan [employer] - RHC [place] State Plan [id number] N/A Medicare Part A Medicare - Lab/Xray [id number] N/A Medicare Part A Medicare Part A [id number] N/A History of Encounters Visit Date Visit Type Provider 06/21/2015 Office visit Martin Lopez MD 05/16/2015 Office visit Martin Lopez MD 03/05/2015 Office visit Martin Lopez MD 02/04/2015 Office visit Martin Lopez MD 01/08/2015 Office visit Martin Lopez MD 11/29/2014 Office visit Martin Lopez MD 11/06/2014 Office visit Martin Lopez MD 10/09/2014 Office visit Martin Lopez MD
--- OUTSIDE RECORDS SUMMARY | 2018-01-03 20:51 | XMS REPORT ---
Author Author Martin Lopez [facility] Address [address] [place], [place] [address] Care Team Providers Care Flosser Name Role Phone Martin Lopez PCP Martin [...] Number Start Date Medicare RHC Medicare RHC [id number] Thursday, 2007 [facility] - C [id number] N/A [facility] Plan [id number] N/A Medicare Part A Medicare Part A [id number] N/A [employer] [place] [employer] [place] State Plan [id number] N/A Medicare Part A Medicare - Lab/Xray [id number] N/A Medicare RHC Medicare RHC [id number] N/A Medicare Part B Medicare Of [place] [id number] N/A [employer] [place] State [facility] [employer] [place] State Plan [id number] N/A History of Encounters Visit Date Visit Type Provider 02/11/2017 Office visit Martin Lopez MD 02/01/2017 Office visit Martin Lopez MD 01/25/2017 Office visit Martin Lopez MD 12/22/2016 Office visit Martin Lopez MD 12/18/2016 Office visit Maverick Urbina APRN 12/13/2016 Hospital Karissa Aguilar MD 12/09/2016 Office visit Martin Lopez MD 11/23/2016 [facility] Karissa Aguilar MD 11/19/2016 Office visit Martin Lopez MD 10/26/2016 Office visit Martin Lopez MD 10/13/2016 Office visit Martin Lopez MD 10/11/2016 [facility] Luanne Purcell MD 10/11/2016 Surgery Ishan Seymour DO 10/11/2016 [facility] Karissa Aguilar MD 10/10/2016 Office visit Adriana [...] Lopez MD 08/02/2015 [facility] Ross Abraham MD 06/26/2015 Office [...]
--- OUTSIDE RECORDS SUMMARY | 2018-01-03 20:54 | XMS REPORT ---
Author Author Martin Lopez [facility] Address [address] [place], [place] [phone] Care Team Providers Care Dip Tanker Name Role Phone Martin Lopez PCP Unavailable [...] Number Start Date Medicare RHC Medicare RHC [id number] Thursday, 2007 [facility] - C [id number] N/A [facility] [id number] N/A Medicare Part A Medicare Part A [id number] N/A [employer] [place] Plan [employer] [place] Plan [id number] N/A Medicare Part A Medicare - Lab/Xray [id number] N/A Medicare RHC Medicare RHC [id number] N/A Medicare Part B Medicare Of [place] [id number] N/A [employer] [place] [employer] [place] Plan [id number] N/A History of Encounters Visit Date Visit Type Provider 10/26/2016 Office visit Martin Lopez MD 10/13/2016 Office visit Martin Lopez MD 10/11/2016 Hospital Luanne Purcell MD 10/11/2016 Surgery Ishan Seymour DO 10/10/2016 Office visit Adriana Angel PHLEBOTOMIST LAB ASSISTANT 09/29/2016 Office visit Martin Lopez MD 09/17/2016 [...] 03/16/2016 Office visit Martin Lopez MD 02/20/2016 [facility] Karissa Aguilar MD 02/06/2016 Office visit Martin Lopez MD 12/31/2015 Office visit Martin Lopez MD 10/28/2015 Office visit Martin Lopez MD 10/08/2015 Office visit Martin Lopez MD 08/28/2015 Office visit Martin Lopez MD 08/02/2015 [facility] Ross Abraham MD 06/26/2015 Office visit [...]
--- OUTSIDE RECORDS SUMMARY | 2018-01-03 20:56 | XMS REPORT ---
Author Author Martin Lopez [facility] Address [address] [place], [place] [address] Care Team Providers Care Front Loader Residential Driver Name Role Phone Martin Lopez PCP [...] route every 8 hours for 3 days Xanax 2 mg oral tablet 01/18/2017 take 1 tablet by oral route 4 times a day as needed oxycodone 10 mg oral tablet 01/25/2017 take 1 tablet by oral route every 4 hours as needed promethazine-codeine 6.25-10 mg/5 mL oral syrup 02/01/2017 [...] HC BMI BSA BMI Percentile O2 Sat(%) 02/01/2017 2:07:00 PM 140 mmHg 72 mmHg [...] Upper Respiratory Infection Feb 01 2017 2:12PM Payers Insurance Name Company Name Plan Name Plan Number Policy Number Policy Group Number Start Date Medicare RHC Medicare RHC [id number] Thursday, 2007 [facility] - RHC [id number] N/A [facility] Plan [facility] Plan [id number] N/A Medicare Part A Medicare Part A [id number] N/A [employer] [place] [employer] [place] Plan [id number] N/A Medicare Part A Medicare - Lab/Xray [id number] N/A Medicare RHC Medicare RHC [id number] N/A Medicare Part B Medicare Of [place] [id number] N/A [employer] [place] State [facility] [employer] [place] State [facility] [id number] N/A History of Encounters Visit Date Visit Type Provider 02/01/2017 Office visit Martin Lopez MD 01/25/2017 Office visit Martin Lopez MD 12/22/2016 Office visit Martin Lopez MD 12/18/2016 Office visit Maverick Urbina NOTCHER 12/09/2016 Office visit Martin Lopez MD 11/23/2016 Hospital Karissa Aguilar MD 11/19/2016 Office visit Martin Lopez MD 10/26/2016 Office visit Martin Lopez MD 10/13/2016 Office visit Martin Lopez MD 10/11/2016 Hospital Luanne Purcell MD 10/11/2016 Surgery Ishan Seymour DO 10/11/2016 Hospital Karissa Aguilar MD 10/10/2016 Office visit Adriana Angel NOTCHER 09/29/2016 Office visit Martin Lopez MD 09/17/2016 [...]
--- OUTSIDE RECORDS SUMMARY | 2018-01-03 20:58 | XMS REPORT ---
Author Author Martin Lopez [facility] Address [address] [place], [place] [address] Care Team Providers Care Shipping Receiving Clerk Name Role Phone Martin Lopez PCP Unavailable [...] route 4 times a day as needed Medrol (Humberto) 4 mg oral tablets,dose pack 11/19/2016 12/01/2016 take as directed for 6 days promethazine-codeine 6.25-10 mg/5 mL oral syrup 11/19/2016 [...] by oral route every 6 hours PRN Discontinued Name Start Date Discontinued Date SIG [...] Number Start Date Medicare RHC Medicare RHC [id number] Thursday, 2007 [facility]-Health Plan [facility] - [facility] [id number] N/A [facility] [id number] N/A Medicare Part A Medicare Part A [id number] N/A [employer] - RHC - [facility] Amer[employer] - RHC [place] State Plan [id number] N/A Medicare Part A Medicare - Lab/Xray [id number] N/A Medicare RHC Medicare RHC [id number] N/A Medicare Part B Medicare Of [place] [id number] N/A [employer] [place] State [facility] [employer] [facility] [id number] N/A History of Encounters Visit Date Visit Type Provider 11/19/2016 Office visit Martin Lopez MD 10/26/2016 Office visit Martin Lopez MD 10/13/2016 Office visit Martin Lopez MD 10/11/2016 Hospital Luanne Purcell MD 10/11/2016 Surgery Ishan Seymour DO 10/10/2016 Office visit Adriana Angel DATA CODER OPERATOR 09/29/2016 Office visit Martin Lopez MD [...]
--- OUTSIDE RECORDS SUMMARY | 2018-01-03 21:01 | XMS REPORT ---
Author Author Martin Lopez [facility] Address [address] [place], [place] [address] Care Team Providers Care Pediatric Dermatologist Name Role Phone Martin Lopez PCP Unavailable [...] per day Xanax 2 mg oral tablet 09/17/2016 take 1 tablet by oral route 3 times a day as needed oxycodone 30 mg oral tablet 09/17/2016 take 1 tablet by oral route 4 [...] HC BMI BSA BMI Percentile O2 Sat(%) 09/17/2016 10:53:00 AM 142 mmHg 90 mmHg [...] 2016 8:29AM Anxiety Sep 17 2016 10:55AM Payers Insurance Name Company Name Plan Name Plan Number Policy Number Policy Group Number Start Date Medicare RHC Medicare RHC [id number] Thursday, 2007 [facility] - [facility] [id number] N/A Medicare Part A Medicare Part A [id number] N/A [facility] [place] State [facility] State Plan [id number] N/A Medicare Part A Medicare - Lab/Xray [id number] N/A Medicare [facility] Medicare [facility] [id number] N/A Medicare Part B Medicare Of [place] [id number] N/A [employer] [place] State Plan [facility] [id number] N/A History of Encounters Visit Date Visit Type Provider 09/17/2016 Office visit Martin Lopez MD 09/07/2016 [...]
--- OUTSIDE RECORDS SUMMARY | 2018-01-03 21:02 | XMS REPORT ---
Author Author Martin Lopez [facility] Address [address] [place], [place] [address] Care Team Providers Care Circuit Clerk Name Role Phone Martin Lopez PCP [...] HC BMI BSA BMI Percentile O2 Sat(%) 10/13/2016 12:59:00 PM 142 mmHg 80 mmHg [...] Number Start Date Medicare RHC Medicare RHC [id number] Thursday, 2007 [facility] [id number] N/A Medicare Part A Medicare Part A [id number] N/A [employer] [place] [employer] [place] [id number] N/A Medicare Part A Medicare - Lab/Xray [id number] N/A Medicare RHC Medicare RHC [id number] N/A Medicare Part B Medicare Of [place] [id number] N/A [employer] [place] Plan [employer] [place] State Plan [id number] N/A History of Encounters Visit Date Visit Type Provider 10/13/2016 Office visit Martin Lopez MD 10/10/2016 Office visit Adriana OneilMarshall Stanley HARDENER HELPER 09/29/2016 Office visit Martin Lopez MD 09/17/2016 [...] Martin Lopez MD 10/08/2015 Office visit Martin Lpoez MD 08/28/2015 Office visit Martin Lopez MD [...]
--- OUTSIDE RECORDS SUMMARY | 2018-01-03 21:03 | XMS REPORT ---
Author Author Martin Lopez [facility] Address [address] [place], [place] [address] Care Team Providers Care Claims Adjuster Name Role Phone Martin Lopez PCP Unavailable [...] a day Xanax 1 mg oral tablet 11/29/2014 04/28/2015 take 1 tablet (1 mg) by oral route 3 times per day for 30 days Problem List Description Status Onset Hypertension Active Renal Failure Active Rotator cuff tear Active Vital Signs Date Time BP-Sys(mm[Hg] BP-Dahiana(mm[Hg]) HR(bpm) RR(rpm) Temp WT HT HC BMI BSA BMI Percentile O2 Sat(%) 11/29/2014 3:14:00 PM 140 mmHg 92 mmHg [...] Depression and anxiety Nov 29 2014 3:16PM Payers Insurance Name Company Name Plan Name Plan Number Policy Number Policy Group Number Start Date Medicare Part A Medicare Part A [id number] N/A [facility] [place] State Plan [facility] [place] State Plan [id number] N/A History of Encounters Visit Date Visit Type Provider 11/29/2014 Office visit Martin Lopez MD 11/06/2014 Office visit Martin Lopez MD 10/09/2014 Office visit Martin Lopez MD
--- OUTSIDE RECORDS SUMMARY | 2018-01-03 21:03 | XMS REPORT ---
Author Author Martin Lopez [facility] Address [address] [place], [place] [id number] Care Team Providers Care Paper Box Maker Name Role Phone Martin Lopez PCP Martin [...] per day with food for 30 days Name Start Date Expiration [...] HC BMI BSA BMI Percentile O2 Sat(%) 02/23/2017 9:13:00 AM 180 mmHg 96 mmHg [...] 2017 9:15AM Bronchitis Feb 23 2017 9:15AM Payers Insurance Name Company Name Plan Name Plan Number Policy Number Policy Group Number Start Date Medicare RHC Medicare RHC [id number] Thursday, 2007 [facility] [id number] N/A [facility] [id number] N/A Medicare Part A Medicare Part A [id number] N/A [employer] - RHC - [facility] [employer] - [facility] [id number] N/A Medicare Part A Medicare - Lab/Xray [id number] N/A Medicare RHC Medicare RHC [id number] N/A Medicare Part B Medicare Of [place] [id number] N/A [employer] [facility] [id number] N/A History of Encounters Visit Date Visit Type Provider 02/23/2017 Office visit Martin Lopez MD 02/22/2017 [...] visit Martin Lopez MD 03/05/2015 Office visit Mratin Lopez MD 02/04/2015 Office visit Martin Lopez MD 01/08/2015 Office visit Martin Lopez MD 11/29/2014 Office visit Martin Lopez MD 11/06/2014 Office visit Martin Lopez MD 10/09/2014 Office visit Martin Lopez MD
--- OUTSIDE RECORDS SUMMARY | 2018-01-03 21:04 | XMS REPORT ---
Author Author Martin Lopez [facility] Address [address] [place], [place] [id number] Care Team Providers Care Flooring Machine Feeder Name Role Phone Martin Lopez PCP Unavailable [...] by topical route 2 times per day Zofran ODT 4 mg oral tablet,disintegrating 12/18/2016 dissolve 1 tablet by oral route every 8 hours for 3 days promethazine-codeine 6.25-10 mg/5 mL oral syrup 12/22/2016 take 5 milliliters by oral route every 6 hours as needed, not to exceed 30 mL in 24 hours Xanax 2 mg oral tablet 01/18/2017 take [...] HC BMI BSA BMI Percentile O2 Sat(%) 01/25/2017 9:33:00 AM 146 mmHg 86 mmHg [...] 2017 9:35AM Gastritis Jan 25 2017 9:35AM Payers Insurance Name Company Name Plan Name Plan Number Policy Number Policy Group Number Start Date Medicare RHC Medicare RHC [id number] Thursday, 2007 [facility] [id number] N/A [facility] [id number] N/A Medicare Part A Medicare Part A [id number] N/A [employer] - [place] State [place] [employer] [place] [id number] N/A Medicare Part A Medicare - Lab/Xray [id number] N/A Medicare RHC Medicare RHC [id number] N/A Medicare Part B Medicare Of [place] [id number] N/A [employer] [place] State Plan [employer] [facility] [id number] N/A History of Encounters Visit Date Visit Type Provider 01/25/2017 Office visit Martin Lopez MD 12/22/2016 Office visit Martin Lopez MD 12/18/2016 Office visit Maverick Urbina APRN 12/09/2016 Office visit Martin Lopez MD 11/23/2016 [...] 08/28/2015 Office visit Martin Lopez MD 08/02/2015 [facility] Ross Abraham MD 06/26/2015 Office visit [...]
--- OUTSIDE RECORDS SUMMARY | 2018-01-03 21:05 | XMS REPORT | Continuity of Care Document ---
Author Author [facility] Organization [facility] Address Unknown Phone Unavailable Allergies Active Description Code Type Severity Reaction Onset Reported/Identified Relationship to Patient Clinical Status Yes NKDA - NO KNOWN DRUG ALLERGIES 37000032 CLASS N/A N/A Yes No Known Drug Allergies [id number] N/A N/A Yes NO KNOWN DRUG ALLERGIES - NKDA [id number] CLASS N/A N/A Yes No Known Medication Allergies Drug N/A N/A Yes No Known Medication Allergies NKMA N/A N/A 03/25/2016 Yes No Known Allergies [id number] Drug Allergy Unknown N/A 12/01/2017 Medications Medication Packaging Start Date Stop Date Route Dosage Sig Aspir-81 81 mg tablet,delayed release 07/22/2015 81 mg take 1 (one) by Oral route daily Sensipar 90 mg tablet Tablet 201501/18/2016 90 mg take 1 (one) Tablet by Oral route daily for 30 days lisinopril 40 mg tablet Tablet 01/18/2016 40 mg take 1 (one) Tablet by Oral route [facility] NON DIALYSIS DAYS for 30 days carvedilol 25 mg tablet Tablet 01/18/2016 25 mg 1 (one) Tablet by Oral route two times per day ( take 1/2 dose prior to dialysis) for 30 days furosemide 40 mg tablet Tablet 02/17/2016 40 mg 1 (one) Tablet by Oral route two times per day for 30 days amLODIPine 5 mg tablet 201501/24/2016 5 mg take 1 (one) Tablet by Oral route daily calcium acetate 667 mg capsule Capsule 09/19/2015 03/17/2016 667 mg 3-4 (four) Capsule by Oral route three times per day for 30 days oxyCODONE(oxyCODONE) 03/25/2016 Oral Oral, 0 Refill( s) lisinopril(lisinopril) 2016 Oral Oral, Daily, 0 Refill(s) ALPRAZolam(Xanax) 03/25/2016 Oral Oral, TID, 0 Refill(s) oxyCODONE-acetaminophen(oxyCODONE-acetaminophen 10 mg-325 mg oral tablet range dose) 1 tabs 03/25/2016 03/25/2016 Oral 1 tabs, Oral, Once Problems Date Dx Coded Attending Type Code Diagnosis Diagnosed By 07/15/2015 MARIE HURT N18.6 End stage renal disease NICOLETTE HOWELLD I 07/15/2015 BLU, USHASRI Z99.2 Dependence on renal dialysis NICOLETTE HOWELLD I 11/15/2015 BLU, USHASRI N18.6 End stage renal disease BLU, USHASRI 11/15/2015 BLU, USHASRI Z99.2 Dependence on renal dialysis BLU, USHASRI 12/16/2015 BLU, USHASRI N18.6 End stage renal disease BLU, USHASRI 12/16/2015 BLU, USHASRI Z99.2 Dependence on renal dialysis BLU, USHASRI 01/13/2016 BLU, USHASRI N18.6 End stage renal disease BLU, USHASRI 01/13/2016 BLU, USHASRI Z99.2 Dependence on renal dialysis BLU, USHASRI 02/11/2016 BLU, USHASRI N18.6 End stage renal disease KRYSTAL HOWELL I 02/11/2016 BLU, USHASRI Z99.2 Dependence on renal dialysis DANTELULAKRYSTAL I 03/26/2016 Raymond Dickinson I12.0 Hypertensive chronic kidney disease with stage 5 chronic kidney disease or 03/26/2016 Raymond Dickinson Reason M79.601 Pain in right arm 03/26/2016 Raymond Dickinson N18.6 End stage renal disease 03/26/2016 Raymond Dickinson Z87.891 Personal history of nicotine dependence 03/26/2016 Raymond Dickinson Z99.2 Dependence on renal dialysis 12/09/2016 BLU, USHASRI N18.6 End stage renal disease BLU, USHASRI 12/09/2016 BLU, USHASRI Z99.2 Dependence on renal dialysis BLU, USHASRI 04/01/2017 NINI PA, UGO K Ot G47.33 OBSTRUCTIVE SLEEP APNEA (ADULT) (PEDIATR 04/01/2017 HUONG-LALITA PA, UGO K Ot I12.9 HYPERTENSIVE CHRONIC KIDNEY DISEASE W ST 04/01/2017 NINI PA, UGO K Ot N18.9 CHRONIC KIDNEY DISEASE, UNSPECIFIED 04/01/2017 NINI PA, UGO K Ot R01.1 CARDIAC MURMUR, UNSPECIFIED 04/01/2017 NINI PA, UGO K Ot R06.00 DYSPNEA, UNSPECIFIED 04/21/2017 NINI PA, UGO K Ot G47.33 OBSTRUCTIVE SLEEP APNEA (ADULT) (PEDIATR 04/21/2017 NINI GIRON, UGO K Ot I12.9 HYPERTENSIVE CHRONIC KIDNEY DISEASE W ST 04/21/2017 NINI GIRON, UGO K Ot N18.9 CHRONIC KIDNEY DISEASE, UNSPECIFIED 04/21/2017 HUONG-LALITA GIRON, UGO K Ot R01.1 CARDIAC MURMUR, UNSPECIFIED 04/21/2017 NINI GIRON, UGO K Ot R06.00 DYSPNEA, UNSPECIFIED 04/28/2017 NINI GIRON, UGO K Ot G47.33 OBSTRUCTIVE SLEEP APNEA (ADULT) (PEDIATR 04/28/2017 NINI GIRON, UGO K Ot I12.9 HYPERTENSIVE CHRONIC KIDNEY DISEASE W ST 04/28/2017 NINI GIRON, UGO K Ot N18.9 CHRONIC KIDNEY DISEASE, UNSPECIFIED 04/28/2017 HUONG-LALITA GIRON, UGO K Ot R01.1 CARDIAC MURMUR, UNSPECIFIED 04/28/2017 NINI GIRON, UGO K Ot R06.00 DYSPNEA, UNSPECIFIED 04/28/2017 HUONG-LALITA PA, UGO K Ot G47.33 OBSTRUCTIVE SLEEP APNEA (ADULT) (PEDIATR 04/28/2017 HUONG-LALITA PA, UGO K Ot I12.9 HYPERTENSIVE CHRONIC KIDNEY DISEASE W ST 04/28/2017 NINI GIRON, UGO K Ot N18.9 CHRONIC KIDNEY DISEASE, UNSPECIFIED 04/28/2017 HUONG-LALITA GIRON, UGO K Ot R01.1 CARDIAC MURMUR, UNSPECIFIED 04/28/2017 NINI GIRON, UGO K Ot R06.00 DYSPNEA, UNSPECIFIED 04/28/2017 P M545 Low back pain 06/29/2017 LUMPKINS, YOGESH R SALES SERVICE SUPERVISOR-C Ot J90 PLEURAL EFFUSION, NOT ELSEWHERE CLASSIFI 07/09/2017 LUMPKINS, YOGESH R SALES SERVICE SUPERVISOR-C Ot J90 PLEURAL EFFUSION, NOT ELSEWHERE CLASSIFI 07/15/2017 SIENA VILLEGAS STITCHDOWN TOE FORMER Ot I25.10 ATHSCL HEART DISEASE OF [place] CORONARY 07/15/2017 SIENA VILLEGAS STITCHDOWN TOE FORMER Ot I51.7 CARDIOMEGALY 07/15/2017 SIENA VILLEGAS STITCHDOWN TOE FORMER Ot I70.1 ATHEROSCLEROSIS OF RENAL ARTERY 07/15/2017 SIENA VILLEGAS STITCHDOWN TOE FORMER Ot J44.9 CHRONIC OBSTRUCTIVE PULMONARY DISEASE, U 07/15/2017 SIENA VILLEGAS STITCHDOWN TOE FORMER Ot J90 PLEURAL EFFUSION, NOT ELSEWHERE CLASSIFI 07/15/2017 SIENA VILLEGAS STITCHDOWN TOE FORMER Ot N18.9 CHRONIC KIDNEY DISEASE, UNSPECIFIED 07/27/2017 LUMPKINS, YOGESH R SALES SERVICE SUPERVISOR-C Ot J90 PLEURAL EFFUSION, NOT ELSEWHERE CLASSIFI 08/05/2017 SIENA VILLEGAS STITCHDOWN TOE FORMER Ot I25.10 ATHSCL HEART DISEASE OF [place] CORONARY 08/05/2017 SIENA VILLEGAS STITCHDOWN TOE FORMER Ot I51.7 CARDIOMEGALY 08/05/2017 SIENA VILLEGAS STITCHDOWN TOE FORMER Ot I70.1 ATHEROSCLEROSIS OF RENAL ARTERY 08/05/2017 SIENA VILLEGAS STITCHDOWN TOE FORMER Ot J44.9 CHRONIC OBSTRUCTIVE PULMONARY DISEASE, U 08/05/2017 SIENA VILLEGAS STITCHDOWN TOE FORMER Ot J90 PLEURAL EFFUSION, NOT ELSEWHERE CLASSIFI 08/05/2017 SIENA VILLEGAS STITCHDOWN TOE FORMER Ot N18.9 CHRONIC KIDNEY DISEASE, UNSPECIFIED 08/05/2017 LUMPKINS, YGOESH R SALES SERVICE SUPERVISOR-C Ot J90 PLEURAL EFFUSION, NOT ELSEWHERE CLASSIFI 08/18/2017 SIENA VILLEGAS STITCHDOWN TOE FORMER Ot I25.10 ATHSCL HEART DISEASE OF [place] CORONARY 08/18/2017 SIENA VILLEGAS STITCHDOWN TOE FORMER Ot I51.7 CARDIOMEGALY 08/18/2017 SIENA VILLEGAS STITCHDOWN TOE FORMER Ot I70.1 ATHEROSCLEROSIS OF RENAL ARTERY 08/18/2017 SIENA VILLEGAS APRN Ot J44.9 CHRONIC OBSTRUCTIVE PULMONARY DISEASE, U 08/18/2017 SIENA VILLEGAS APRN Ot J90 PLEURAL EFFUSION, NOT ELSEWHERE CLASSIFI 08/18/2017 SIENA VILLEGAS STITCHDOWN TOE FORMER Ot N18.9 CHRONIC KIDNEY DISEASE, UNSPECIFIED 11/15/2017 S F419 Anxiety disorder, unspecified 11/15/2017 P I1311 Hypertensive heart and chronic kidney disease without heart failure, with stage 5 chronic kidney disease, or end stage renal disease 11/15/2017 S N186 End stage renal disease 11/15/2017 S R000 Tachycardia, unspecified 12/01/2017 UGO LACEY Ot G47.33 OBSTRUCTIVE SLEEP APNEA (ADULT) (PEDIATR 12/01/2017 UGO LACEY Ot I12.9 HYPERTENSIVE CHRONIC KIDNEY DISEASE W ST 12/01/2017 UGO LACEY Ot N18.9 CHRONIC KIDNEY DISEASE, UNSPECIFIED 12/01/2017 UGO LACEY Ot R01.1 CARDIAC MURMUR, UNSPECIFIED 12/01/2017 UGO LACEY Ot R06.00 DYSPNEA, UNSPECIFIED 12/01/2017 LUMPKINS, YOGESH R SALES SERVICE SUPERVISOR-C Ot J90 PLEURAL EFFUSION, NOT ELSEWHERE CLASSIFI 12/01/2017 SIENA VILLEGAS APRN Ot I25.10 ATHSCL HEART DISEASE OF [place] CORONARY 12/01/2017 SIENA VILLEGAS APRN Ot I51.7 CARDIOMEGALY 12/01/2017 SIENA VILLEGAS APRN Ot I70.1 ATHEROSCLEROSIS OF RENAL ARTERY 12/01/2017 SIENA VILLEGAS APRN Ot J44.9 CHRONIC OBSTRUCTIVE PULMONARY DISEASE, U 12/01/2017 SIENA VILLEGAS APRN Ot J90 PLEURAL EFFUSION, NOT ELSEWHERE CLASSIFI 12/01/2017 SIENA VILLEGAS APRN Ot N18.9 CHRONIC KIDNEY DISEASE, UNSPECIFIED 12/02/2017 LEANNA TREADWELL MD Ot F17.201 NICOTINE DEPENDENCE, UNSPECIFIED, IN REM 12/02/2017 LEANNA TREADWELL MD Ot I10 ESSENTIAL (PRIMARY) HYPERTENSION 12/02/2017 LEANNA TREADWELL MD Ot I47.1 SUPRAVENTRICULAR TACHYCARDIA 12/02/2017 EBEN NELSON, LEANNA J Ot R06.00 DYSPNEA, UNSPECIFIED Procedures Code Description [place] [address] End-stage renal disease ( ESRD) related services monthly, for patients 20 years of age and older; MARIE Pierce 12/16/2015 08418 End-stage renal disease ( ESRD) related services monthly, for patients 20 years of age and older; MARIE Pierce 12/24/2015 62939 End-stage renal disease ( ESRD) related services monthly, for patients 20 years of age and older; MARIE Pierce 01/13/2016 48839 End-stage renal disease ( ESRD) related services monthly, for patients 20 years of age and older; KRYSTAL Arce I 01/21/2016 95591 End-stage renal disease ( ESRD) related services monthly, for patients 20 years of age and older; MARIE Pierce 01/24/2016 96785 End-stage renal disease ( ESRD) related services monthly, for patients 20 years of age and older; KRYSTAL Arce I 02/11/2016 38700 End-stage renal disease ( ESRD) related services monthly, for patients 20 years of age and older; MARIE Pierce 02/17/2016 11116 End-stage renal disease ( ESRD) related services for dialysis less than a full month of service, per MARIE HURT 01/11/2017 Results Test Result Range Complete blood count (CBC) with automated white blood cell (WBC) differential - 01/03/18 17:43 Blood leukocytes automated count (number/volume) 4.7 10*3/uL 4.3-11.0 Blood erythrocytes automated count (number/volume) 3.64 10*6/uL 4.35-5.85 Venous blood hemoglobin measurement (mass/volume) 11.2 g/dL 13.3-17.7 Blood hematocrit (volume fraction) 36 % 40-54 Automated erythrocyte mean corpuscular volume 99 [foz_us] 80-99 Automated erythrocyte mean corpuscular hemoglobin (mass per erythrocyte) 31 pg 25-34 Automated erythrocyte mean corpuscular hemoglobin concentration measurement ( mass/volume) 31 g/dL 32-36 Automated erythrocyte distribution width ratio 20.3 % 10.0-14.5 Automated blood platelet count (count/volume) 168 10*3/uL 130-400 Automated blood platelet mean volume measurement 11.2 [foz_us] 7.4-10.4 Automated blood neutrophils/100 leukocytes 77 % 42-75 Automated blood lymphocytes/100 leukocytes 13 % 12-44 Blood monocytes/100 leukocytes 7 % 0-12 Automated blood eosinophils/100 leukocytes 2 % 0-10 Automated blood basophils/100 leukocytes 1 % 0-10 Blood neutrophils automated count (number/volume) 3.6 10*3 1.8-7.8 Blood lymphocytes automated count (number/volume) 0.6 10*3 1.0-4.0 Blood monocytes automated count (number/volume) 0.3 10*3 0.0-1.0 Automated eosinophil count 0.1 10*3/uL 0.0-0.3 Automated blood basophil count (count/volume) 0.0 10*3/uL 0.0-0.1 Comprehensive metabolic panel - 01/03/18 17:43 Serum or plasma sodium measurement (moles/volume) 144 mmol/L 135-145 Serum or plasma potassium measurement (moles/volume) 4.3 mmol/L 3.6-5.0 Serum or plasma chloride measurement (moles/volume) 101 mmol/L 98-107 Carbon dioxide 27 mmol/L 21-32 Serum or plasma anion gap determination (moles/volume) 16 mmol/L 5-14 Serum or plasma urea nitrogen measurement (mass/volume) 40 mg/dL 7-18 Serum or plasma creatinine measurement (mass/volume) 8.20 mg/dL 0.60-1.30 Serum or plasma urea nitrogen/creatinine mass ratio 5 NRG Serum or plasma creatinine measurement with calculation of estimated glomerular filtration rate 8 NRG Serum or plasma glucose measurement (mass/volume) 108 mg/dL 70-105 Serum or plasma calcium measurement (mass/volume) 8.7 mg/dL 8.5-10.1 Serum or plasma total bilirubin measurement (mass/volume) 0.6 mg/dL 0.1-1.0 Serum or plasma alkaline phosphatase measurement (enzymatic activity/volume) 175 U/L 40-136 Serum or plasma aspartate aminotransferase measurement (enzymatic activity/ volume) 12 U/L 5-34 Serum or plasma alanine aminotransferase measurement (enzymatic activity/volume ) 10 U/L 0-55 Serum or plasma protein measurement (mass/volume) 7.2 g/dL 6.4-8.2 Serum or plasma albumin measurement (mass/volume) 3.9 g/dL 3.2-4.5 CALCIUM CORRECTED 8.8 mg/dL 8.5-10.1 Serum or plasma lithium measurement (moles/volume) - 01/03/18 17:43 BNP level 8869.9 pg/mL <100.0 Encounters ACCT No. Visit Date/Time Discharge Status Pt. Type Provider Facility Loc./Unit Complaint [id number] 12/27/2017 11:25:50 12/27/2017 23:59:59 [facility] Outpatient Martin Lopez [id number] 12/17/2017 10:18:54 12/17/2017 23:59:59 CLS Outpatient Martin Lopez [id number] 12/10/2017 16:19:28 12/10/2017 23:59:59 CLS Outpatient Karissa Aguilar [id number] 12/08/2017 09:33:39 12/08/2017 23:59:59 CLS Outpatient Martin Lopez [id number] 12/05/2017 14:21:31 12/05/2017 23:59:59 CLS Outpatient Ishan Seymour [id number] 11/25/2017 12:33:33 11/25/2017 23:59:59 CLS Outpatient Karissa Aguilar [id number] 11/24/2017 11:31:48 11/24/2017 23:59:59 CLS Outpatient Ishan Seymour [id number] 11/22/2017 14:42:30 11/22/2017 23:59:59 [facility] Outpatient Martin Lopez [id number] 11/17/2017 09:31:59 11/17/2017 23:59:59 [facility] Outpatient Martin Lopez [id number] 11/11/2017 10:06:04 11/11/2017 23:59:59 [facility] Outpatient Martin Lopez [id number] 09/28/2017 09:43:09 09/28/2017 23:59:59 [facility] Outpatient Martin Lopez [id number] 09/22/2017 10:23:10 09/22/2017 23:59:59 [facility] Outpatient Martin Lopez [id number] 09/10/2017 10:10:16 09/10/2017 23:59:59 CLS Outpatient HetlingerMartin [id number] 08/18/2017 09:11:52 08/18/2017 23:59:59 CLS Outpatient Hetlinger, Martin [id number] 07/23/2017 09:53:55 07/23/2017 23:59:59 CLS Outpatient Hetlinger, Martin [id number] 07/05/2017 09:07:35 07/05/2017 23:59:59 CLS Outpatient Hetlinger, Martin [id number] 06/28/2017 14:49:21 06/28/2017 23:59:59 CLS Outpatient Hetlinger, Martin [id number] 06/24/2017 10:04:08 06/24/2017 23:59:59 CLS Outpatient Hetlinger, Martin [id number] 06/16/2017 15:59:27 06/16/2017 23:59:59 CLS Outpatient Britta Garces [id number] 06/10/2017 10:05:28 06/10/2017 23:59:59 CLS Outpatient HetlingerMartin [id number] 05/14/2017 10:11:12 05/14/2017 23:59:59 CLS Outpatient HetlingerMartin [id number] 05/03/2017 15:58:45 05/03/2017 23:59:59 CLS Outpatient HetlingerMartin [id number] 04/15/2017 17:12:52 04/15/2017 23:59:59 CLS Outpatient Karissa Aguilar [id number] 04/12/2017 12:07:23 04/12/2017 23:59:59 CLS Outpatient HetlingerMartin [id number] 04/08/2017 09:56:52 04/08/2017 23:59:59 CLS Outpatient HetlingerMartin [id number] 03/15/2017 09:33:58 03/15/2017 23:59:59 CLS Outpatient HetlingerMartin [id number] 02/23/2017 09:59:31 02/23/2017 23:59:59 CLS Outpatient HetlingerMartin [id number] 02/22/2017 14:13:24 02/22/2017 23:59:59 CLS Outpatient [place] mer[place] [id number] 02/11/2017 09:49:29 02/11/2017 23:59:59 CLS Outpatient Hetlinger Martin [id number] 02/05/2017 16:23:20 02/05/2017 23:59:59 CLS Outpatient Karissa Aguilar [id number] 02/01/2017 14:54:31 02/01/2017 23:59:59 CLS Outpatient HetlingerMartin [id number] 01/25/2017 10:21:42 01/25/2017 23:59:59 CLS Outpatient HetlingerMartin [id number] 01/22/2017 14:18:20 01/22/2017 23:59:59 CLS Outpatient Karissa Aguilar [id number] 01/19/2017 10:16:36 01/19/2017 23:59:59 CLS Outpatient Karissa Aguilar [id number] 12/22/2016 10:48:55 12/22/2016 23:59:59 CLS Outpatient HetlingerMartin [id number] 12/18/2016 14:14:08 12/18/2016 23:59:59 CLS Outpatient UrbinaMaverick cordoba [id number] 12/09/2016 10:38:37 12/09/2016 23:59:59 CLS Outpatient HetlingerMartin [id number] 11/19/2016 10:59:00 11/19/2016 23:59:59 CLS Outpatient HetlingerMartin [id number] 10/26/2016 11:09:59 10/26/2016 23:59:59 CLS Outpatient HetlingerMartin [id number] 10/21/2016 17:30:59 10/21/2016 23:59:59 CLS Outpatient Ghassan Castanedat [id number] 10/13/2016 16:57:25 10/13/2016 23:59:59 CLS Outpatient EdeIshan lopez [id number] 10/13/2016 13:47:25 10/13/2016 23:59:59 CLS Outpatient HetlingerMartin [id number] 10/10/2016 13:51:47 10/10/2016 23:59:59 CLS Outpatient Adriana Angeln [id number] 09/29/2016 14:18:55 09/29/2016 23:59:59 CLS Outpatient HetlingMartin lehman [id number] 09/17/2016 11:32:16 09/17/2016 23:59:59 CLS Outpatient HetlingerMartin [id number] 09/07/2016 09:15:15 09/07/2016 23:59:59 CLS Outpatient HetlingerMartin [id number] 08/12/2016 09:49:01 08/12/2016 23:59:59 CLS Outpatient Hetlinger, Martin [id number] 07/20/2016 17:36:27 07/20/2016 23:59:59 CLS Outpatient Hetlinger, Martin [id number] 07/06/2016 11:23:03 07/06/2016 23:59:59 CLS Outpatient Hetlinger, Martin [id number] 05/26/2016 11:14:55 05/26/2016 23:59:59 CLS Outpatient Hetlinger, Martin [id number] 05/13/2016 10:32:14 05/13/2016 23:59:59 CLS Outpatient Karissa Aguilar [id number] 05/06/2016 10:11:11 05/06/2016 23:59:59 CLS Outpatient Hetlinger, Martin [id number] 04/22/2016 10:57:46 04/22/2016 23:59:59 CLS Outpatient Hetlinger, Martin [id number] 04/07/2016 11:22:13 04/07/2016 23:59:59 CLS Outpatient Hetlinger, Martin [id number] 03/16/2016 11:32:55 03/16/2016 23:59:59 CLS Outpatient Hetlinger, Martin [id number] 02/06/2016 11:03:45 02/06/2016 23:59:59 CLS Outpatient Hetlinger, Martin [id number] 12/31/2015 10:15:51 12/31/2015 23:59:59 CLS Outpatient Hetlinger, Martin [id number] 10/28/2015 16:17:09 10/28/2015 23:59:59 CLS Outpatient Hetlinger, Martin [id number] 10/08/2015 10:37:59 10/08/2015 23:59:59 CLS Outpatient Hetlinger, Martin [id number] 09/05/2015 11:46:44 09/05/2015 23:59:59 CLS Outpatient Hetlinger, Martin [id number] 05/16/2015 10:19:15 05/16/2015 23:59:59 CLS Outpatient Hetlinger, Martin [id number] 03/05/2015 10:14:52 03/05/2015 23:59:59 CLS Outpatient Hetlinger, Martin [id number] 02/04/2015 09:06:25 02/04/2015 23:59:59 CLS Outpatient Martin Lopez [id number] 01/30/2015 09:55:46 01/30/2015 23:59:59 CLS Outpatient Martin Lopez [id number] 01/08/2015 10:01:07 01/08/2015 23:59:59 CLS Outpatient Martin Lopez [id number] 11/29/2014 16:03:56 11/29/2014 23:59:59 CLS Outpatient Martin Lopez [id number] 11/06/2014 10:20:41 11/06/2014 23:59:59 CLS Outpatient Martin Lopez [id number] 10/15/2014 22:30:32 10/15/2014 23:59:59 CLS Outpatient Martin Lopez [id number] 07/10/2013 09:11:10 Document Registration [id number] 03/03/2013 11:23:28 Document Registration [id number] 03/16/2017 10:43:00 03/16/2017 23:59:59 CLS Emergency [facility] HUSAM ED ed visit [id number] 12/22/2017 12:30:00 12/22/2017 23:59:59 CLS Preadmit LEANNA TREADWELL MD Via [facility] CARD [id number] 12/08/2017 12:00:00 12/08/2017 23:59:59 CLS Preadmit LEANNA TREADWELL MD [facility] CARD [id number] 12/01/2017 10:22:00 12/01/2017 23:59:59 CLS Outpatient LEANNA TREADWELL MD [facility] CARD DYSPNEA [id number] 07/19/2017 13:34:00 07/19/2017 23:59:59 CLS Preadmit TONIO JOHNSON DO [facility] RAD PLEURAL EFFUSION [id number] 07/14/2017 09:57:00 07/14/2017 23:59:59 CLS Outpatient SIENA VILLEGAS APRN [facility] RAD J90 PLEURAL EFFUSION [id number] 06/28/2017 10:12:00 06/28/2017 23:59:59 CLS Outpatient YOGESH ROMERO-C [facility] RAD J90 [id number] 03/31/2017 09:21:00 03/31/2017 23:59:59 CLS Outpatient BORJALALITA GIRONUGO [facility] CARD N18.9 CHRONIC KIDNEY DISEASE [id number] 01/03/2018 17:51:00 Document Registration [id number] 12/01/2017 10:58:00 Document Registration [id number] 12/01/2017 10:58:00 Document Registration [id number] 03/25/2016 12:36:00 03/25/2016 13:30:00 DIS Emergency Raymond Dickinson [facility] on [facility] ED arm pain [id number] 03/26/2016 05:17:11 Document Registration [id number] 02/11/2016 11:30:02 02/11/2016 23:59:59 CLS Outpatient MARIE HURT [id number] 12/19/2017 10:45:30 Document Registration [id number] 12/14/2017 02:20:29 Document Registration [id number] 12/14/2017 02:01:26 Document Registration [id number] 11/28/2017 18:53:59 Document Registration [id number] 11/26/2017 00:02:16 Document Registration [id number] 11/21/2017 07:58:48 Document Registration [id number] 11/21/2017 07:50:17 Document Registration [id number] 11/18/2017 14:13:46 Document Registration [id number] 11/15/2017 01:01:14 Document Registration [id number] 11/15/2017 00:50:51 Document Registration [id number] 10/28/2017 13:37:48 Document Registration [id number] 10/28/2017 13:26:07 Document Registration [id number] 10/15/2017 15:01:46 Document Registration [id number] 10/10/2017 05:55:57 Document Registration [id number] 10/10/2017 05:40:15 Document Registration [id number] 10/04/2017 12:04:48 Document Registration [id number] 09/24/2017 01:56:26 Document Registration [id number] 09/24/2017 01:42:10 Document Registration [id number] 08/09/2017 11:25:07 Document Registration [id number] 08/09/2017 11:14:29 Document Registration [id number] 07/12/2017 10:11:03 Document Registration [id number] 06/28/2017 15:03:37 Document Registration [id number] 06/24/2017 10:02:34 Document Registration [id number] 06/06/2017 11:45:38 Document Registration [id number] 06/06/2017 11:25:00 Document Registration [id number] 05/09/2017 01:14:35 Document Registration [id number] 05/09/2017 01:02:38 Document Registration [id number] 04/16/2017 13:41:14 Document Registration [id number] 04/14/2017 11:01:35 Document Registration [id number] 03/12/2017 11:04:36 Document Registration [id number] 03/09/2017 21:00:24 Document Registration [id number] 03/08/2017 13:47:01 Document Registration [id number] 03/08/2017 13:38:21 Document Registration [id number] 12/13/2016 03:23:22 Document Registration [id number] 12/13/2016 03:00:58 Document Registration [id number] 12/05/2016 12:52:46 Document Registration [id number] 12/02/2016 10:46:47 Document Registration [id number] 11/23/2016 10:16:28 Document Registration [id number] 11/23/2016 09:03:24 Document Registration [id number] 11/22/2016 13:49:08 Document Registration [id number] 11/22/2016 13:07:35 Document Registration [id number] 11/16/2016 11:00:49 Document Registration [id number] 10/21/2016 13:02:14 Document Registration
--- OUTSIDE RECORDS SUMMARY | 2018-01-03 21:05 | XMS REPORT ---
Author Author Martin Lopez [facility] Address [address] [place], [place] [id number] Care Team Providers Care Decker Operator Name Role Phone Martin Lopez PCP Unavailable [...] take 1 tablet every 8hrs prn nausea Zithromax Z-Humberto 250 mg oral tablet 02/06/2016 02/16/2016 take 2 tablets (500 mg) by oral route once daily for 1 day then 1 tablet (250 mg) by oral route once daily for 4 days promethazine-codeine 6.25-10 mg/5 mL oral syrup 02/06/2016 take 5 milliliters by oral route every 6 hours as needed, not to exceed 30 mL in 24 hours prednisone 20 mg oral tablet 02/06/2016 02/13/2016 take 1 tablet by oral route daily for 7 days oxycodone 15 mg oral tablet 02/06/2016 take 1-2 tablets by oral route every 4 hours as needed Xanax 1 mg oral tablet 02/06/2016 07/05/2016 take 1 tablet by oral route 4 [...] 2016 10:19AM Bronchitis Feb 06 2016 10:19AM Payers Insurance Name Company Name Plan Name Plan Number Policy Number Policy Group Number Start Date Medicare Part A Medicare RHC [id number] [id number] - RHC [id number] N/A Medicare Part A Medicare Part A [id number] N/A [employer] [place] [employer] [place] [id number] N/A Medicare Part A Medicare - Lab/Xray [id number] N/A Medicare Part A Medicare RHC [id number] N/A Medicare Part B Medicare Of [place] [id number] N/A [employer] [place] [employer] [place] Plan [id number] N/A History of Encounters Visit Date Visit Type Provider 02/06/2016 Office visit Martin Lopez MD 12/31/2015 Office visit Martin Lopez MD 10/28/2015 Office visit Martin Lopez MD 10/08/2015 Office visit Martin Lopez MD 08/28/2015 Office visit Martin Lopez MD 08/02/2015 [facility] Ross Abraham MD 06/26/2015 [...]
== END 2018-01-03 20:22 | disposition home or self-care (01) ==
LOC: EDUNIT# 16:35 → ER 16:37
DX: J90 Pleural effusion, not elsewhere classified (principal); E11.22 Type 2 diabetes mellitus with diabetic chronic kidney disease; N18.6 End stage renal disease; Z87.891 Personal history of nicotine dependence; Z99.2 Dependence on renal dialysis; Z90.49 Acquired absence of other specified parts of digestive tract
CPT/HCPCS: 36415; 71045; 80053; 83880; 85025

== ENCOUNTER 2018-01-05 10:05 | Outpatient (CLI) | payer MEDICARE, MEDICAID ==
[~2018-01-05] VITALS: Ht 175.3 cm; Wt 83.9 kg
--- NOTE | 2018-01-05 10:21 | Diagnostic Imaging Report ---
INDICATION: Right pleural effusion. TECHNIQUE: PA and lateral views of the chest were obtained at 1036 hours. COMPARISON: 01/03/2018. FINDINGS: There is cardiomegaly. The Port-A-Cath is unchanged with the tip overlying the left innominate vein. Stents over the right upper chest are stable. There is a moderate to large right pleural effusion which is unchanged compared to the previous study. The left lung is clear. There is some passive atelectasis in the right lung base. IMPRESSION: Cardiomegaly. Unchanged moderate to large right pleural effusion with passive atelectasis in the right lung base. Dictated by: Dictated on workstation # [id number]
[2018-01-05 11:30] VITALS: BP 193/114
--- NOTE | 2018-01-05 12:29 | Pulmonary Procedures ---
Pulmonary Procedures Date of Procedure Date of Service: Jan 05, 2018 Procedure: Right US guided complex thoracentesis Preop DX: right pleural effusion post op DX: Same 1500cc of yellow fluid obtained Complications: None After informed consent obtained US was used to localize pleural fluid. Pt has R pleural effusion. Skin was anesthetized at approximately the 10th ICS posterior axillary line. Thoracentesis needle was advanced through the right 10th ICS posterior axillary line. Needle was removed and catheter left in place.1500cc of yellow fluid obtained using vacuum bottles. Catheter was then removed. Pt tolerated procedure well. No complications noted. TONIO JOHNSON DO Jan 05, 2018 12:29
--- NOTE | 2018-01-05 12:53 | Diagnostic Imaging Report ---
INDICATION: Status post right thoracentesis. TIME OF EXAMINATION: 12:34 p.m. COMPARISON: Correlation is made with prior study earlier same day. FINDINGS: There has been reduction in right-sided pleural effusion, status post thoracentesis. No pneumothorax is seen. Small amount of pleural fluid remains. Right subclavian stent and left chest wall port remain in place. Left lung is clear. IMPRESSION: Reduction in right pleural effusion, status post thoracentesis. No pneumothorax is identified. Dictated by: Dictated on workstation # [id number]
[2018-01-05 13:23] LABS: GLUCOSE,BODY FLUID 83 MG/DL; LDH,BODY FLUID 85 U/L; TOTAL PROTEIN,BODY FLUID 3.4 G/DL
[2018-01-05 14:10] VITALS: BP 193/114
--- NOTE | 2018-01-05 14:41 | Diagnostic Imaging Report ---
PROCEDURE: CT chest without contrast. TECHNIQUE: Multiple contiguous axial images were obtained through the chest without the use of intravenous contrast. INDICATION: Shortness of breath and pleural effusion. COMPARISON: CT chest from 07/14/2017. FINDINGS: A right subclavian stent is in place. A left chest wall port has been placed with its tip at the confluence of the left innominate vein and SVC. There are marked coronary arterial calcifications present. The heart is enlarged. No significant pericardial fluid is seen. There is a small to moderate right pleural effusion. No left-sided effusion is seen. There is some airspace infiltrate identified in the right middle lobe and right lower lobe. This could be secondary to reexpansion pulmonary edema from the recent thoracentesis. No pneumothorax is seen. The left lung appears fairly clear apart from a small region of parenchymal density in the left lower lobe laterally. There does appear to be some central vascular congestion. Marked osteosclerosis involving the thoracic spine, ribs, and sternum is noted, similar to the prior CT. IMPRESSION: 1. Small to moderate right pleural effusion. There is some airspace infiltrate throughout the right middle lobe and right lower lobe. This may be secondary to reexpansion pulmonary edema from the recent thoracentesis. Other etiologies such as pneumonia or pulmonary hemorrhage could produce this appearance. There is some compressive atelectasis in the right lower lobe as well. 2. Cardiomegaly. 3. Extensive coronary artery calcifications. 4. Diffuse osteosclerosis. This could be secondary to renal osteodystrophy. Osteoblastic metastatic disease is another consideration. Dictated by: Dictated on workstation # [id number]
[2018-01-05 15:36] LABS: BODY FLUID COLOR YELLOW; BODY FLUID SOURCE PLEURAL
[2018-01-05 15:37] LABS: BODY FLUID PH 7.7; BODY FLUID RBC COUNT 43 /uL; BODY FLUID WBC TOTAL COUNT 13 /uL
[2018-01-05 15:43] LABS: BF OTHER CELLS 87 %; BODY FLUID APPEARENCE CLEAR; LYMPHOCYTES,BODY FLUID 3 %
== END 2018-01-05 14:05 | disposition home or self-care (01) ==
LOC: RAD 10:05
PROVIDERS: ATTEND Internal Medicine Critical Care Medicine
DX: J90 Pleural effusion, not elsewhere classified (principal); J98.11 Atelectasis; I25.10 Atherosclerotic heart disease of native coronary artery without angina pectoris; I51.7 Cardiomegaly; Z99.2 Dependence on renal dialysis; Z95.828 Presence of other vascular implants and grafts
CPT/HCPCS: 32554; 71045; 71046; 71250; 82945; 83615; 83986; 84157; 87070; 87205; 88112; 88305; 89051

== ENCOUNTER 2018-11-06 14:20 | Emergency (ER) | payer MEDICARE, MEDICAID ==
[~2018-11-06] VITALS: Ht 172.7 cm; Wt 77.1 kg
[2018-11-06] MEDS ORDERED: RX-ALBUTEROL INHALER (PROAIR) 8.5 GM IH STA (14:29)
[2018-11-06] MEDS ORDERED: RX-ALBUTEROL NEB 2.5 MG/3 ML PACK #5 IH STA (14:29)
--- NOTE | 2018-11-06 14:35 | ED Respiratory ---
General Chief Complaint: Respiratory Problems Stated Complaint: SOB Source: patient Exam Limitations: no limitations History of Present Illness Date Seen by Provider: Nov 06, 2018 Time Seen by Provider: 14:17 Initial Comments Patient [place] ER by EMS [place] when police had pulled him over and he began to panic attack as well as was hypoxic with an oxygen saturation of 88% on room air. He's also be using oxygen but his cancer out he was driving to [place] to get some more albuterol for his COPD [place] where he is known. He is a end-stage renal failure with dialysis patient from [place] with a doctor out of [place]. He lives in [place], [place]. EMS gave him a breathing treatment and his sats immediately came up to 99%. He says he typically uses Xanax for his anxiety attacks but is out. He says now that he has arrived to the ER his symptoms have abated and he thinks he was just panic attack and he does not want any further workup. He has family coming to pick him up and take him home. He would like a refill of his albuterol and pro-air. He has an appointment on Wednesday with his primary care doctor in [place], [place] to get his medications refilled as well as his Xanax. He denies any nausea fever chills cough is productive, chest pain, increased weight, swelling or other worrisome symptoms. He does dialysis on Wednesday but he missed dialysis on Wednesday and ended on Wednesday because he was out of town Allergies and Home Medications Allergies Coded Allergies: No Known Allergies (Unverified Allergy, Unknown, 12/01/17) Home Medications No Active Prescriptions or Reported Meds Patient Home Medication List Home Medication List Reviewed: Yes Review of Systems Review of Systems Constitutional: No chills, No fever, No malaise EENTM: No ear discharge, No ear pain Respiratory: cough; No phlegm, No short of breath, No wheezing Cardiovascular: No chest pain; Hx of Intervention Gastrointestinal: No abdominal pain, No nausea Genitourinary: No discharge, No dysuria Musculoskeletal: No back pain, No joint pain Past Mgcnzli-Kzqgck-Yztmrw Hx Patient Social History Alcohol Use: Denies Use Recreational Drug Use: No Smoking Status: Current Everyday Smoker Type Used: Cigarettes (0.5 ppd) Recent Hopitalizations: No Seasonal Allergies Seasonal Allergies: No Past Medical History Surgeries: Yes (thyroid, kidney, L hand, part of stomach removed) Abdominal, Orthopedic Respiratory: No Cardiac: No Neurological: No Genitourinary: Yes Renal Failure Gastrointestinal: No Musculoskeletal: No Endocrine: Yes Diabetes, Non-Insulin dep HEENT: No Cancer: No Psychosocial: No Physical Exam Capillary Refill : Height: 5'9.00" Weight: 185lbs. 0.0oz. 83.555273sk; 27.0 BMI Method:Stated General Appearance: WD/WN, no apparent distress Eyes: Bilateral Eye Normal Inspection, Bilateral Eye PERRL, Bilateral Eye EOMI HEENT: PERRL/EOMI, normal ENT inspection, pharynx normal Neck: full range of motion, normal inspection Respiratory: lungs clear, normal breath sounds, no respiratory distress, no accessory muscle use Cardiovascular: normal peripheral pulses, regular rate, rhythm, no edema Gastrointestinal: normal bowel sounds, non tender, soft Extremities: normal range of motion, non-tender, normal inspection, normal capillary refill Neurologic/Psychiatric: alert, normal mood/affect, oriented x 3 Skin: normal color, warm/dry Progress/Results/Core Measures Suspected Sepsis SIRS Temperature: Pulse: Respiratory Rate: Blood Pressure / Mean: Results/Orders Vital Signs/I&O Capillary Refill : Progress Note : Time: 14:33 Progress Note We'll give him some Proventil and albuterol nebulizer since prescription [facility] to cover him for the next week. Encourage him to return to the ER for emergencies and follow-up with primary care he has aseptic vital signs with an oxygen sat of 98% on room air.. Departure Impression Primary Impression: Panic attack as reaction to stress Additional Impression: COPD with exacerbation Disposition: 01 HOME, SELF-CARE Condition: Stable Departure-Patient Inst. Decision time for Depature: 14:34 Referrals: MARIO VEGA MD (PCP/Family) Primary Care Physician Patient Instructions: Exacerbation of COPD, Panic Disorder (DC) Add. Discharge Instructions: Scripts were sent to [facility] for some albuterol vials as well as a pro-air inhaler if you needed. Keep your follow-up appointment with primary care. Return to the nearest ER if you begin to experience shortness of breath, fever or productive cough that does not improve with your medications. All discharge instructions reviewed with patient and/or family. Voiced understanding. Scripts Albuterol Sulfate (Albuterol Sulfate) 2.5 Mg/3 Ml Vial.neb 2.5 MG INH Q4H PRN for WHEEZING, #50 EA 1 Refill Prov: ARTUR PACHECO 11/06/18 Albuterol Sulfate (PROAIR HFA) 1 Puff Puff 2 PUFF IH Q4H PRN for WHEEZING, #1 EA 0 Refills 1 PUFF = 90 MCG Prov: ARTUR PACHECO 11/06/18 ARTUR PACHECO Nov 06, 2018 14:35
[2018-11-06] MEDS ORDERED: ALBU2.5V4 INH (14:36)
[2018-11-06] MEDS ORDERED: RT-ALBUINH IH (14:36)
[2018-11-06 14:40] VITALS: BP 162/78
== END 2018-11-06 14:40 | disposition home or self-care (01) ==
LOC: EDUNIT# 14:20 → ER 14:21
DX: F41.0 Panic disorder [episodic paroxysmal anxiety] (principal); F43.9 Reaction to severe stress, unspecified; J44.1 Chronic obstructive pulmonary disease with (acute) exacerbation; N18.6 End stage renal disease; E11.22 Type 2 diabetes mellitus with diabetic chronic kidney disease; F17.210 Nicotine dependence, cigarettes, uncomplicated; Z99.2 Dependence on renal dialysis
CPT/HCPCS: 99283